=== PATIENT | male | born 1955 | race Caucasian/White ===

== ENCOUNTER 2018-11-18 13:52 | Inpatient (IN) ==
[2018-11-18] MEDS ORDERED: GI COCKTAIL ED USE PO ONE (14:15)
[2018-11-18] MEDS ORDERED: FAMOTIDINE 20MG/5ML IV PUSH IV STA (14:15)
[2018-11-18] MEDS ORDERED: SODIUM CHLORIDE 0.9% 1000ML 1,000 ML IV SCH (14:15)
[2018-11-18] MEDS ORDERED: PANTOprazole 40 MG in SYRINGE 0 ML IV ONE (14:15)
--- NOTE | 2018-11-18 14:22 | Emergency Department Note ---
Entered by Sue Bianchi acting as a scribe for Helder Valles DO History of Present Illness General Chief complaint: Throat Pain Time Seen by Provider: 11/18/18 14:09 Source: patient History of Present Illness Onset (ago): week(s) 1 Location: left (Lung) and right (Lung) Severity: similar to prior episodes Pain Consistency: + other (Worsening) Quality: + other (Shortness of breath) Relieved By: not by medication (Amoxicillin, Allopurinol, Musinex) Associated symptoms: + cough, + loss of appetite, + shortness of breath and + other (Trouble sleeping, sore throat, weight loss, difficulty swallowing) Treatments prior to arrival: other (Amoxicillin, Allopurinol, Musinex) The patient is a 63 year old male who presents to the Emergency Room with complaints of worsening shortness of breath starting 1 week ago. The patient reports that he had a sore throat 1 week ago. He states that over the past week that it has become harder to breathe and that he has difficulty swallowing. He notes that he has lost his appetite and has trouble sleeping. He adds that he has recently lost 20 pounds. The patient reports that he recently was getting treatment for a sinus infection and was taking Amoxicillin. He states that he was also taking a steroid, Allopurinol along with Musinex. The patient reports that he was in the ED 5 days ago for the same symptoms and that his bloodwork, EKG and imaging all came back normal. The patient reports that he was sent to the ED by Dr. Gunnar DUENAS ENT who called EMS for the patient. Home Medications Home Medications Medication Instructions Recorded Confirmed Type amoxicillin-pot clavulanate 1 tab PO BID 11/12/18 11/18/18 History [Augmentin] diphenhydramine HCl [Benadryl 25 mg PO Q4 PRN 11/18/18 11/18/18 History Allergy] prednisone 40 mg PO DAILY 11/18/18 11/18/18 History Allergies Allergy/AdvReac Type Severity Reaction Status Date / Time No Known Allergies Allergy Verified 11/18/18 15:04 Past Med/Surg History Medical History Tobacco use (Chronic) Chest congestion (Acute) Bronchitis (Acute) Surgical History History of appendectomy (Resolved) Family History Other Breast cancer Diabetes Stroke Social History Current Living Situation: Significant Other Other Information That Helps Us Care for You: No Feels Safe at Home: Yes Safety Concerns: Feels Safe At This Time Smoking Status: Current every day smoker Tobacco Type: cigarettes Cigarettes per Day: 0.5-1ppd x 50 years Do You Dip or Chew Tobacco: No Hx Alcohol Use: No Hx Substance Use: No Beliefs That Will Affect Care: None Preferred Language: Belarusian Communication Ability: Effective Direct Casting Operator Required: No Review of Systems See HPI for pertinent positives & negatives. and A total of 10 systems reviewed and were otherwise negative Physical Exam Vital Signs Vital Signs - 24 hr 11/20/18 23:28 11/21/18 06:52 11/21/18 09:00 Temperature 36.4 C L 36.5 C Temperature Source Oral Oral Pulse Rate [Finger] 54 L 60 Pulse Rhythm [Finger] Regular Regular Pulse Strength [Finger] Normal Normal Respiratory Rate 18 18 Respiratory Effort / Characteristics Non-Labored Non-Labored Non-Labored Spontaneous Respiratory Depth Normal Normal Normal Respiratory Pattern Regular Regular Regular Blood Pressure [Left Arm] 132/75 150/83 H Blood Pressure Mean [Left Arm] 94 105 Blood Pressure Position [Left Arm] Lying Lying Pulse Oximetry 97 99 Oxygen Delivery Method Room Air Room Air Room Air 11/21/18 15:00 Temperature 36.5 C Temperature Source Oral Pulse Rate [Finger] 64 Pulse Rhythm [Finger] Pulse Strength [Finger] Respiratory Rate 18 Respiratory Effort / Characteristics Respiratory Depth Respiratory Pattern Blood Pressure [Left Arm] 137/74 Blood Pressure Mean [Left Arm] 95 Blood Pressure Position [Left Arm] Pulse Oximetry 96 Oxygen Delivery Method GENERAL: The patient is awake and alert. He is somewhat anxious appearing and appears to be uncomfortable. EYES: The conjunctivae are clear. The pupils are round and reactive. EARS, NOSE, MOUTH AND THROAT: The nose is without any evidence of any deformity. Mucous membranes are moist tongue is midline NECK: The neck is nontender and supple. RESPIRATORY: Normal respiratory effort is noted there is no evidence of wheezing rhonchi or rales CARDIOVASCULAR: Regular rate and rhythm noted there no murmurs rubs or gallops normal S1 normal S2 GASTROINTESTINAL: The abdomen is soft. Bowel sounds are present in all quadrants. Abdomen is nontender MUSCULOSKELETAL/EXTREMITIES: There is no evidence of gross deformity full range of motion is noted in the hips and shoulders SKIN: There is no obvious evidence of any rash. There are no petechiae, pallor or cyanosis noted. NEUROLOGIC: Patient is awake alert and oriented x3 strength is symmetric patellar reflexes are 2+ bilaterally Course 1412: Past medical records reviewed. The patient was evaluated in room A11A, and a complete history and physical examination were performed. 1541: I reviewed the patient's case with Yoko Lizarraga - [facility]. She will evaluate the patient for further management. 1556: I reevaluated the patient at this time and told him that he will be evaluated by a hospitalist for admission. Administered Medications Fluticasone Propionate (Flonase) 2 sprays NA BID LACI Stop: 12/20/18 09:29 Last Admin: 11/21/18 08:59 Dose: 2 sprays Admin: 11/20/18 21:08 Dose: 2 sprays Admin: 11/20/18 09:47 Dose: 2 sprays Methylprednisolone 20 mg/ (Syringe) 0.32 mls @ 1.5 mls/min IV BID LACI Stop: 12/20/18 09:59 Last Admin: 11/21/18 09:00 Dose: 1.5 mls/min Admin: 11/20/18 21:07 Dose: 1.5 mls/min Admin: 11/20/18 10:52 Dose: 1.5 mls/min Pantoprazole Sodium (Protonix) 40 mg PO QAM LACI Stop: 12/20/18 08:59 Last Admin: 11/21/18 08:59 Dose: 40 mg Admin: 11/20/18 07:51 Dose: 40 mg Discontinued Medications Al Hydrox/Mg Hydrox/Simethicone () 1 dose PO ONE ONE Stop: 11/18/18 14:16 Last Admin: 11/18/18 14:54 Dose: 1 dose Famotidine (Pepcid 20mg Iv Push) 20 mg IV ONE STA Stop: 11/18/18 14:16 Last Admin: 11/18/18 14:53 Dose: 20 mg Pantoprazole Sodium 40 mg/ (Syringe) 10 mls @ 5 mls/min IV NOW ONE Stop: 11/18/18 14:16 Last Admin: 11/18/18 14:53 Dose: 5 mls/min Sodium Chloride (Nss 1000ml) 1,000 mls @ 999 mls/hr IV .Q1H1M [facility] Stop: 11/18/18 15:15 Last Infusion: 11/18/18 15:54 Dose: 0 mls/hr Admin: 11/18/18 14:53 Dose: 999 mls/hr Sodium Chloride (Nss 1000ml) 1,000 mls @ 125 mls/hr IV .Q8H [facility] Stop: 11/19/18 10:02 Last Infusion: 11/19/18 11:29 Dose: 0 mls/hr Admin: 11/19/18 03:29 Dose: 125 mls/hr Infusion: 11/19/18 03:07 Dose: 125 mls/hr Admin: 11/18/18 19:07 Dose: 125 mls/hr Pantoprazole Sodium 40 mg/ (Syringe) 10 mls @ 5 mls/min IV DAILY@1100 [facility] Stop: 12/19/18 10:59 Last Admin: 11/19/18 11:41 Dose: 5 mls/min Ampicillin Sodium/Sulbactam Sodium 1,500 mg/ Sodium Chloride 104 mls @ 200 mls/ hr IV Q6H [facility] Stop: 11/20/18 13:01 Last Infusion: 11/20/18 13:41 Dose: 0 mls/hr Admin: 11/20/18 13:06 Dose: 200 mls/hr Infusion: 11/20/18 08:30 Dose: 0 mls/hr Admin: 11/20/18 07:50 Dose: 200 mls/hr Infusion: 11/20/18 01:35 Dose: 0 mls/hr Admin: 11/20/18 00:57 Dose: 200 mls/hr Infusion: 11/19/18 19:43 Dose: 0 mls/hr Admin: 11/19/18 19:03 Dose: 200 mls/hr Infusion: 11/19/18 15:10 Dose: 0 mls/hr Admin: 11/19/18 14:38 Dose: 200 mls/hr Infusion: 11/19/18 06:53 Dose: 0 mls/hr Admin: 11/19/18 06:21 Dose: 200 mls/hr Infusion: 11/19/18 01:12 Dose: 0 mls/hr Admin: 11/19/18 00:40 Dose: 200 mls/hr Infusion: 11/18/18 20:00 Dose: 0 mls/hr Admin: 11/18/18 19:20 Dose: 200 mls/hr Lidocaine HCl (Xylocaine 2%) Confirm Administered Dose 4 ml INFIL .STK-MED ONE Stop: 11/19/18 13:19 Last Admin: 11/19/18 14:41 Dose: Not Given Lorazepam (Ativan) 1 mg SL NOW STA Stop: 11/19/18 21:00 Last Admin: 11/19/18 21:06 Dose: 1 mg Menthol (Nice) Confirm Administered Dose 24 barby BUCCAL .STK-MED ONE Stop: 11/19/18 19:41 Last Admin: 11/19/18 19:41 Dose: 24 barby Propofol (Diprivan) Confirm Administered Dose 400 mg IV .STK-MED ONE Stop: 11/19/18 13:19 Last Admin: 11/19/18 14:41 Dose: Not Given Medical Decision Making Differential Diagnosis Differential diagnosis: Etiologies such as infections, reactive airway disease, COPD, pneumonia, pleural effusion, pulmonary edema, ARDS, pneumothorax, CHF, cardiac ischemia, cardiac tamponade, dysrhythmia, anemia, pulmonary embolism, musculoskeletal, gastrointestinal process, as well as others were entertained. Medical Records Attestation: I reviewed the patient's medical records. Home Medications Current Medication List: was personally reviewed by me Laboratory Data Attestation: I reviewed the patient's lab results. Result diagrams: 11/20/18 05:54 11/20/18 05:54 Lab Results 11/18/18 11/18/18 11/18/18 Range/Units 14:40 14:40 14:40 WBC 7.11 (4.8-10.8) K/uL RBC 5.06 (4.7-6.1) M/uL Hgb 15.6 (14.0-18.0) g/dL Hct 43.5 (42-52) % MCV 86.0 (80-100) fL MCH 30.8 (25-34) pg MCHC 35.9 (32-36) g/dL RDW Std Deviation 41.1 (36.4-46.3) fL RDW Coeff of John 13.1 (11.5-14.5) % Plt Count 206 (130-400) K/uL MPV 10.9 H (7.4-10.4) fL Immature Gran % (Auto) 0.3 % Neut % (Auto) 73.7 % Lymph % (Auto) 20.7 % [place] % (Auto) 5.1 % Eos % (Auto) 0.1 % Baso % (Auto) 0.1 % Immature Gran # (Auto) 0.02 (0.00-0.02) K/uL Neut # (Auto) 5.24 (1.4-6.5) K/uL Lymph # (Auto) 1.47 (1.2-3.4) K/uL [place] # (Auto) 0.36 (0.11-0.59) K/uL Eos # (Auto) 0.01 (0-0.5) K/uL Baso # (Auto) 0.01 (0-0.2) K/uL PT 11.5 (9.0-12.0) Seconds INR 1.1 (0.9-1.1) APTT 28.0 (21.0-31.0) Seconds PTT Ratio 1.1 Sodium 139 (136-145) mmol/L Potassium 3.9 (3.5-5.1) mmol/L Chloride 106 (98-107) mmol/L Carbon Dioxide 22 (21-32) mmol/L Anion Gap 11.0 (3-11) BUN 16 (7-18) mg/dl Creatinine 1.43 H (0.6-1.4) mg/dl Est Cr Clr Drug Dosing 60.8 ml/min Est GFR ( Amer) 59.1 Est GFR (Non-Af Amer) 51.0 BUN/Creatinine Ratio 10.9 (10-20) Glucose 116 H (70-99) mg/dl Calcium 9.6 (8.5-10.1) mg/dl Phosphorus (2.5-4.9) mg/dl Magnesium (1.8-2.4) mg/dl Total Bilirubin 0.9 (0.2-1) mg/dl AST 27 (15-37) U/L ALT 43 (12-78) U/L Alkaline Phosphatase 61 (45-117) U/L Total Protein 7.9 (6.4-8.2) gm/dl Albumin 4.2 (3.4-5.0) gm/dl Globulin 3.7 (2.5-4.0) gm/dl Albumin/Globulin Ratio 1.1 (0.9-2) Lipase 107 (73-393) U/L Urine Color Urine Appearance (Clear) Urine pH (4.5-7.5) Ur Specific [place] (1.000-1.030) Urine Protein (Negative) Urine Glucose (UA) (Negative) Urine Ketones (Negative) Urine Blood (Negative) Urine Nitrite (Negative) Urine Bilirubin (Negative) Urine Urobilinogen (Negative) Ur Leukocyte Esterase (Negative) Hepatitis C Ab Screen (Neg) 11/18/18 11/18/18 11/19/18 Range/Units 14:42 15:00 05:46 WBC 6.53 (4.8-10.8) K/uL RBC 4.63 L (4.7-6.1) M/uL Hgb 13.9 L (14.0-18.0) g/dL Hct 40.4 L (42-52) % MCV 87.3 (80-100) fL MCH 30.0 (25-34) pg MCHC 34.4 (32-36) g/dL RDW Std Deviation 42.4 (36.4-46.3) fL RDW Coeff of John 13.3 (11.5-14.5) % Plt Count 157 (130-400) K/uL MPV 11.2 H (7.4-10.4) fL Immature Gran % (Auto) % Neut % (Auto) % Lymph % (Auto) % [place] % (Auto) % Eos % (Auto) % Baso % (Auto) % Immature Gran # (Auto) (0.00-0.02) K/uL Neut # (Auto) (1.4-6.5) K/uL Lymph # (Auto) (1.2-3.4) K/uL [place] # (Auto) (0.11-0.59) K/uL Eos # (Auto) (0-0.5) K/uL Baso # (Auto) (0-0.2) K/uL PT (9.0-12.0) Seconds INR (0.9-1.1) APTT (21.0-31.0) Seconds PTT Ratio Sodium (136-145) mmol/L Potassium (3.5-5.1) mmol/L Chloride (98-107) mmol/L Carbon Dioxide (21-32) mmol/L Anion Gap (3-11) BUN (7-18) mg/dl Creatinine (0.6-1.4) mg/dl Est Cr Clr Drug Dosing ml/min Est GFR ( Amer) Est GFR (Non-Af Amer) BUN/Creatinine Ratio (10-20) Glucose (70-99) mg/dl Calcium (8.5-10.1) mg/dl Phosphorus (2.5-4.9) mg/dl Magnesium (1.8-2.4) mg/dl Total Bilirubin (0.2-1) mg/dl AST (15-37) U/L ALT (12-78) U/L Alkaline Phosphatase (45-117) U/L Total Protein (6.4-8.2) gm/dl Albumin (3.4-5.0) gm/dl Globulin (2.5-4.0) gm/dl Albumin/Globulin Ratio (0.9-2) Lipase (73-393) U/L Urine Color Yellow Urine Appearance Clear (Clear) Urine pH 8.0 H (4.5-7.5) Ur Specific [place] 1.007 (1.000-1.030) Urine Protein Negative (Negative) Urine Glucose (UA) Negative (Negative) Urine Ketones Trace H (Negative) Urine Blood Negative (Negative) Urine Nitrite Negative (Negative) Urine Bilirubin Negative (Negative) Urine Urobilinogen Negative (Negative) Ur Leukocyte Esterase Negative (Negative) Hepatitis C Ab Screen Pos H (Neg) 11/19/18 11/20/18 11/20/18 Range/Units 05:46 05:54 05:54 WBC 6.30 (4.8-10.8) K/uL RBC 4.70 (4.7-6.1) M/uL Hgb 14.1 (14.0-18.0) g/dL Hct 41.0 L (42-52) % MCV 87.2 (80-100) fL MCH 30.0 (25-34) pg MCHC 34.4 (32-36) g/dL RDW Std Deviation 42.0 (36.4-46.3) fL RDW Coeff of John 13.1 (11.5-14.5) % Plt Count 143 (130-400) K/uL MPV 10.9 H (7.4-10.4) fL Immature Gran % (Auto) 0.2 % Neut % (Auto) 49.2 % Lymph % (Auto) 40.2 % [place] % (Auto) 7.1 % Eos % (Auto) 3.0 % Baso % (Auto) 0.3 % Immature Gran # (Auto) 0.01 (0.00-0.02) K/uL Neut # (Auto) 3.10 (1.4-6.5) K/uL Lymph # (Auto) 2.53 (1.2-3.4) K/uL [place] # (Auto) 0.45 (0.11-0.59) K/uL Eos # (Auto) 0.19 (0-0.5) K/uL Baso # (Auto) 0.02 (0-0.2) K/uL PT (9.0-12.0) Seconds INR (0.9-1.1) APTT (21.0-31.0) Seconds PTT Ratio Sodium 143 138 (136-145) mmol/L Potassium 3.8 3.8 (3.5-5.1) mmol/L Chloride 112 H 108 H (98-107) mmol/L Carbon Dioxide 26 24 (21-32) mmol/L Anion Gap 5.0 6.0 (3-11) BUN 16 15 (7-18) mg/dl Creatinine 1.32 1.12 (0.6-1.4) mg/dl Est Cr Clr Drug Dosing 65.2 76.8 ml/min Est GFR ( Amer) 65.2 79.5 Est GFR (Non-Af Amer) 56.2 68.6 BUN/Creatinine Ratio 12.0 13.3 (10-20) Glucose 85 84 (70-99) mg/dl Calcium 8.3 L 8.2 L (8.5-10.1) mg/dl Phosphorus 2.7 (2.5-4.9) mg/dl Magnesium 2.1 (1.8-2.4) mg/dl Total Bilirubin (0.2-1) mg/dl AST (15-37) U/L ALT (12-78) U/L Alkaline Phosphatase (45-117) U/L Total Protein (6.4-8.2) gm/dl Albumin (3.4-5.0) gm/dl Globulin (2.5-4.0) gm/dl Albumin/Globulin Ratio (0.9-2) Lipase (73-393) U/L Urine Color Urine Appearance (Clear) Urine pH (4.5-7.5) Ur Specific [place] (1.000-1.030) Urine Protein (Negative) Urine Glucose (UA) (Negative) Urine Ketones (Negative) Urine Blood (Negative) Urine Nitrite (Negative) Urine Bilirubin (Negative) Urine Urobilinogen (Negative) Ur Leukocyte Esterase (Negative) Hepatitis C Ab Screen (Neg) Imaging Data Radiologist's Impression: Radiology results as stated below per my review and the radiologist's interpretation: SINGLE VIEW CHEST CLINICAL HISTORY: Atypical chest pain. Sore throat and chest congestion. FINDINGS: 2 AP, portable, upright chest radiographs are compared to chest x-ray and chest CT dated 11/12/2018. The examination is degraded by portable technique and patient rotation. The heart is mildly enlarged. The pulmonary vasculature is noncongested. Mild emphysematous change and chronic interstitial thickening are similar to previous. No airspace consolidation or pleural effusion is identified. No pneumothorax is seen. The bony thorax is grossly intact. IMPRESSION: Cardiomegaly and mild emphysematous change with no acute cardiopulmonary abnormality. Electronically signed by: Syed Villarreal M.D. 11/18/2018 2:50 PM ECG Data Attestation: I personally reviewed and interpreted this ECG as follows: Indication: SOB/dyspnea Rate (beats per minute): 69 Rhythm: normal sinus Findings: no ST depression, no ST elevation and no ectopy Comparison ECG Date: from (11/12/18) Change: no significant change Blood Pressure Blood Pressure Findings: Elevated blood pressure Blood Pressure Disposition: further management by hospitalist MDM Narrative The patient is a 63-year-old male who presented to the emergency department for an evaluation of difficulty swallowing and chest discomfort. The patient was seen in our facility recently for similar complaints. At that time it was unclear of the source of the patient's difficulty swallowing. He was started on a steroid. This may have made symptoms worse. I would wonder if this is a GI source for the patient's dysphagia. The patient was seen by ENT today and sent to the emergency department because of the severity symptoms. Reportedly the patient did not have any upper airway involvement according to ENT. They felt he required further inpatient evaluation for his dysphagia and possibly an upper endoscopy. I discussed the patient's laboratory and radiographic studies with him. I also discussed this case with the on-call [facility] hospitalist group. They have agreed to evaluate the patient in the emergency department for further management and disposition. Impression & Plan Dysphagia, Chest pain Discharge Plan Visit Data *Final* Discharge Date/Time: 11/18/18 17:13 Chief Complaint: Throat Pain Other Complaint: GI Assessment ED Provider: Helder Valles Discharge Problem: Dysphagia, Chest pain Patient Disposition: Admitted As Inpatient Discharge Instructions Interventions: ED Discharge Assessment Last Done: 11/18/18 17:13 The scribe's documentation has been prepared under my direction and personally reviewed by me in its entirety. I confirm that the note above accurately reflects all work, treatment, procedures, and medical decision making performed by me.
--- NOTE | 2018-11-18 14:52 | XRay Report ---
SINGLE VIEW CHEST CLINICAL HISTORY: Atypical chest pain. Sore throat and chest congestion. FINDINGS: 2 AP, portable, upright chest radiographs are compared to chest x-ray and chest CT dated . The examination is degraded by portable technique and patient rotation. The heart is mildly enlarged. The pulmonary vasculature is noncongested. Mild emphysematous change and chronic interstit ial thickening are similar to previous. No airspace consolidation or pleural effusion is identified. No pneumothorax is seen. The bony thorax is grossly intact. IMPRESSION: Cardiomegaly and mild emphysematous change with no acute cardiopulmonary abnormality. Electronically signed by: Syed Villarreal M.D. 11/18/2018 2:50 PM
[2018-11-18 15:03] LABS: Basophils # (auto) 0.01 K/uL (0-0.2); Basophils % (auto) 0.1 %; Eosinophils # (auto) 0.01 K/uL (0-0.5); Eosinophils % (auto) 0.1 %; Hematocrit (blood only) 43.5 % (42-52); Hemoglobin 15.6 g/dL (14.0-18.0); Immature Granulocytes # (auto) 0.02 K/uL (0.00-0.02); Immature Granulocytes % (auto) 0.3 %; Lymphocytes # (auto) 1.47 K/uL (1.2-3.4); Lymphocytes % (auto) 20.7 %; Mean Corpuscular Hgb Conc 35.9 g/dL (32-36); Mean Platelet Volume 10.9 fL (7.4-10.4); Monocytes # (auto) 0.36 K/uL (0.11-0.59); Monocytes % (auto) 5.1 %; Neutrophils # (auto) 5.24 K/uL (1.4-6.5); Neutrophils % (auto) 73.7 %; Platelet Count 206 K/uL (130-400); RDW Coefficient of Variation 13.1 % (11.5-14.5); RDW Standard Deviation 41.1 fL (36.4-46.3); Red Blood Count 5.06 M/uL (4.7-6.1); White Blood Count 7.11 K/uL (4.8-10.8)
[2018-11-18 15:19] LABS: Albumin Level 4.2 gm/dl (3.4-5.0); BUN Creatinine Ratio 10.9 (10-20); Calcium 9.6 mg/dl (8.5-10.1); Creatinine Clr Calc Pharmacy 60.8 ml/min; Est GFR (African American) 59.1; Potassium 3.9 mmol/L (3.5-5.1)
[2018-11-18 15:22] LABS: Appearance Urine Clear (Clear); Bilirubin Urine Negative (Negative); Color Urine Yellow; Glucose Urine UA Negative (Negative); Ketones Urine Trace (Negative); Leukocyte Esterase Urine Negative (Negative); Nitrite Urine Negative (Negative); Protein Urine Negative (Negative); Specific Gravity Urine 1.007 (1.000-1.030); Urobilinogen Urine Negative (Negative)
[2018-11-18 15:22] LABS: Albumin Globulin Ratio 1.1 (0.9-2); Bilirubin,Total 0.9 mg/dl (0.2-1); Globulin 3.7 gm/dl (2.5-4.0); Total Protein 7.9 gm/dl (6.4-8.2)
[2018-11-18 16:20] LABS: INR 1.1 (0.9-1.1); Partial Thromboplastin Ratio 1.1; Prothrombin Time 11.5 Seconds (9.0-12.0)
--- NOTE | 2018-11-18 17:02 | History & Physical Report ---
Date of Service November 18, 2018 Assessment & Plan (1) Dysphagia: Onset of URI symptoms 4 weeks ago which has progressed to dysphagia with solids and liquids. Denies painful swallowing. Decreased oral intake secondary to symptoms. Reports 20 pound weight loss over past 3 days. In ER was given pepcid and protonix IV, 1L NSS. He was unable to completely swallow GI cocktail and coughed it out. No CP or SOB or dizziness currently -Protonix IV -NPO for now -aspiration precautions -GI consult appreciate recommendations (2) Tobacco use: -smoking cessation discussed. Reports has cut down past couple of weeks (3) Post-nasal drip: Recent URI symptoms and was started on Augmentin. Has 2 days remaining to finish 10 day course. Today was last day of prednisone course -unasyn since NPO to finish antibiotic course DVT Prophylaxis -SCDs Full code Follows with Dr Bony Catherine for routine care Pt was seen with Dr Acosta. See addendum History of Present Illness Chief Complaint: Trouble swallowing Primary Care Provider: Nieves Catherine MD Pt is 63 y/o M without known medical problems presented to ER from ENT office with c/o dysphagia. Pt states 4 weeks ago started with sore throat which then progressed to rhinorhea, sneezing and nasal congestion. Reports developed thick mucous that he was unable to blow or cough it out or swallow. He saw PCP and was started on Augmentin x 10 days on 11/10/18. Feels progressive trouble swallowing with both liquids and solids. [place] like things were getting a little better this morning and drank a couple of cups of coffee without difficulty and then tried eating small bite of scrambled eggs and felt like got stuck in his throat. When this happens pt states he can't get it to go down and can't cough or vomit it out. He usually walks around house for couple of minutes until symptoms resolve. Admits when this happens he feels like can't swallow and can' t breath and it makes him feel anxious. Denies pain with swallowing. Denies CP. States never really had any cough, he has just been trying to make himself cough to try to relieve symptoms. Reports feels like can't swallow when lying supine also. He has not been sleeping well. Reports hasn't ate or drank much over past 3 weeks and has lost approx 20 pounds. Pt states this morning felt dizzy. Was seen in ER on 11/12/18 and had normal WBC, negative troponin, negative CXR, CT Chest was negative for PE. Was started on prednisone x 5 days and inhaler. Seen in ER on 11/15/18: had CT sinus which were clear. This morning was at ENT office- Dr Dangelo. Had reported normal ENT exam and laryngoscopy and was referred to ER for further evaluation. Denies hx trouble swallowing in past. Reports has heartburn a few times a month when eats tomato sauce late at night. Was taking aspirin 81mg daily, denies other NSAID use. Drinks 6 cups coffee daily. Smokes 0.5-1ppd. Denies ETOH use. Denies fever/ chills, diaphoresis, N/V/D/C, GONZALEZ, syncope, vision changes, neck pain, palpitations, otalgia, abdominal pain, paresthesias, extremity edema, rashes, urinary symptoms. Allergies Allergy/AdvReac Type Severity Reaction Status Date / Time No Known Allergies Allergy Verified 11/18/18 15:04 Home Medications Home Medications Medication Instructions Recorded Confirmed Type amoxicillin-pot clavulanate 1 tab PO BID 11/12/18 11/18/18 History [Augmentin] diphenhydramine HCl [Benadryl 25 mg PO Q4 PRN 11/18/18 11/18/18 History Allergy] prednisone 40 mg PO DAILY 11/18/18 11/18/18 History Past Med/Surg History Medical History Tobacco use (Chronic) Chest congestion (Acute) Bronchitis (Acute) Surgical History History of appendectomy (Resolved) Social History Current Living Situation: Significant Other Other Information That Helps Us Care for You: No Feels Safe at Home: Yes Safety Concerns: Feels Safe At This Time Smoking Status: Current every day smoker Cigarettes per Day: 0.5-1ppd x 50 years Hx Alcohol Use: No Hx Substance Use: No Beliefs That Will Affect Care: None Preferred Language: Albanian Communication Ability: Effective Home Restoration Service Cleaner Required: No Review of Systems All systems reviewed & are unremarkable except as noted in HPI & below Physical Exam 2 Vital Signs (Past 24 Hours): Last Vital Signs Temp 36.7 C 11/18/18 14:05 Pulse 80 11/18/18 15:55 Resp 18 11/18/18 15:55 BP 147/77 H 11/18/18 15:55 Pulse Ox 97 11/18/18 15:55 Physical Exam: General: no distress, WDWN Head: normocephalic, atraumatic Eyes: PERRL, EOM's intact, conjunctiva non-injected, anicteric ENT: normal inspection external ears, nose, mucous membranes moist; swallowing saliva Neck: supple, trachea midline, non-tender Lungs: clear, no respiratory distress, no wheezing/rhonchi/rales CV: RRR, no murmur, no pretibial edema Abd: normal BS, soft, non-tender Ext: no cyanosis, no calf tenderness Neuro: A&O x 3, no focal deficits noted, normal affect Skin: warm, dry Results & Data Laboratory Results Short CBC 11/18/18 Range/Units 14:40 WBC 7.11 (4.8-10.8) K/uL Hgb 15.6 (14.0-18.0) g/dL Hct 43.5 (42-52) % Plt Count 206 (130-400) K/uL BMP 11/18/18 14:40 Sodium 139 Potassium 3.9 Chloride 106 Carbon Dioxide 22 BUN 16 Creatinine 1.43 H Glucose 116 H Calcium 9.6 Liver Function 11/18/18 Range/Units 14:40 Total Bilirubin 0.9 (0.2-1) mg/dl AST 27 (15-37) U/L ALT 43 (12-78) U/L Alkaline Phosphatase 61 (45-117) U/L Albumin 4.2 (3.4-5.0) gm/dl Urine 11/18/18 Range/Units 15:00 Urine Color Yellow Urine Appearance Clear (Clear) Urine pH 8.0 H (4.5-7.5) Ur Specific [place] 1.007 (1.000-1.030) Urine Protein Negative (Negative) Urine Glucose (UA) Negative (Negative) Diagnostic Findings CXR: IMPRESSION: Cardiomegaly and mild emphysematous change with no acute cardiopulmonary abnormality. ECG Rate (beats per minute): 69 Rhythm: normal sinus Supervising Physician Co-Signing Physician Notes Patient is a 63-year-old male who presents with history of worsening dysphagia. Reports associated rhinorrhea, nasal congestion for which he has been taking Augmentin. He reports having difficulty with swallowing both liquids and solids. He was evaluated by ENT today and was sent to the ED for further workup. Reports weight loss of about 20 pounds in the last 3 weeks. Please review HPI for complete details of presentation. On exam patient patient is moderately built and nourished, no apparent distress, lungs are clear to auscultation, RRR, No murmur, abd soft, non tender, no focal deficits, no pedal edema. Patient is admitted for dysphagia workup. Will be kept n.p.o., aspiration precautions GI consulted for possible EGD. Started on PPI. I personally reviewed the record. Patient is interviewed and examined at bedside. Patient's care is coordinated with Yris Lizarraga PA-C. Please refer to the documentation above for details of patient's presentation and for discussion of other issues. _ (1) Dysphagia Dysphagia type: unspecified Qualified Code(s): R13.10 - Dysphagia, unspecified
[2018-11-18] MEDS ORDERED: ACETAMINOPHEN 325 MG TAB PO PRN (18:03)
[2018-11-18] MEDS: SODIUM CHLORIDE 0.9% 1000ML 1,000 ML IV SCH (19:07)
[2018-11-18] MEDS: AMPICILLIN/SULBACTAM SOD 1,500 MG in 0.9 % SODIUM CHLORIDE 100 ML IV SCH (19:20)
[2018-11-19] MEDS: AMPICILLIN/SULBACTAM SOD 1,500 MG in 0.9 % SODIUM CHLORIDE 100 ML IV SCH ×4 (00:40→19:03)
[2018-11-19] MEDS: SODIUM CHLORIDE 0.9% 1000ML 1,000 ML IV SCH (03:29)
[2018-11-19 06:00] LABS: Hematocrit (blood only) 40.4 % (42-52); Hemoglobin 13.9 g/dL (14.0-18.0); Mean Corpuscular Hgb Conc 34.4 g/dL (32-36); Mean Corpuscular Volume 87.3 fL (80-100); Mean Platelet Volume 11.2 fL (7.4-10.4); Platelet Count 157 K/uL (130-400); RDW Coefficient of Variation 13.3 % (11.5-14.5); RDW Standard Deviation 42.4 fL (36.4-46.3); Red Blood Count 4.63 M/uL (4.7-6.1); White Blood Count 6.53 K/uL (4.8-10.8)
[2018-11-19 06:30] LABS: Calcium 8.3 mg/dl (8.5-10.1); Creatinine Clr Calc Pharmacy 65.2 ml/min; Est GFR (African American) 65.2; Est GFR (Non-African American) 56.2; Potassium 3.8 mmol/L (3.5-5.1)
--- NOTE | 2018-11-19 08:54 | Gastrointestinal Consultation ---
Date of Consultation November 19, 2018 Assessment & Plan (1) Dysphagia: 63 year old male with history of recent URI on augmentin/prednisone admitted with dysphagia to both solids/liquids, globus sensation and weight loss. DDX discussed: pill esophagitis, esophageal samm, stricture, ring, EOE , GERD, lesions etc. - NPO - EGD - PPI 20 mg daily - GERD dietary/lifestyle changes - Please see report of endoscopy when completed for additional recommendations. GI to sign off. Thank you for allowing us to participate in the care of this patient. Please call with any acute changes, questions or concerns. Please see addendum below with additional recommendation from my supervising physician. Present on Admission?: Yes Supervising Physician Co-Signing Physician Notes I saw and evaluated the patient. Regard to a question of dysphagia. The patient is somewhat difficult to pinpoint his symptoms but notes that he does get short of breath anytime he swallows. This is been ongoing for several days. He did recently see an ear nose and throat doctor who recommended that he get an ambulance transfer from his clinic to the hospital. Physical examination No obvious distress, no scleral icterus Cardiac: Regular rhythm Pulmonary: No wheezes or crackles Impression: Patient with difficult to describe symptoms which clinicians are worried about underlying dysphagia. We are planning to do upper endoscopy today with possible esophageal dilation. We have discussed the risks and benefits to include bleeding, infection, perforation and need for follow-up studies. History of Present Illness Reason for Consultation: dysphagia Requesting Physician: Stephanie Attending Physician: Asya Brown MD History of Present Illness 63 year old male with no past medical history admitted from ENT for dysphagia - pt was seen and evaluated, chart reviewed. Denies any prior history of GERD or dysphagia and that his symptoms started during course of upper respiratory illness. About one month ago started iwth sore throat, rhinorrhea, congestion and PND. Notes he had sensation of globus with this illness which he felt was secondary to PND, mucous. However, this progressed and persisted despite resolution of his URI symptoms. Endorses persisted globus sensation. With PO will have sensation of food sticking (back of throat) Will resolve with emesis. In the ED had PPI, GI cocktail with mild improvement. Is NPO. Tolerating secretions. Acute weight loss, 20 lbs. No fever, chills, CP, SOB. Was in ENT yesterday w/ report of normal examination. Was seen in ED on 11/12/18 and had normal WBC, negative troponin, negative CXR, CT Chest was negative for PE. Again in ED on 11/15/18: had CT sinus which were clear. NSAIDs: ASA daily ETOH: none Tobacco: 1 PPD Steroids: recent one week course ABX: recent course of Augmentin EGD: none Colonoscopy: diverticulosis Allergies Allergy/AdvReac Type Severity Reaction Status Date / Time No Known Allergies Allergy Verified 11/18/18 15:04 Home Medications Home Medications Medication Instructions Recorded Confirmed Type amoxicillin-pot clavulanate 1 tab PO BID 11/12/18 11/18/18 History [Augmentin] diphenhydramine HCl [Benadryl 25 mg PO Q4 PRN 11/18/18 11/18/18 History Allergy] prednisone 40 mg PO DAILY 11/18/18 11/18/18 History Patient History Medical History Tobacco use (Chronic) Chest congestion (Acute) Bronchitis (Acute) Surgical History History of appendectomy (Resolved) Family History Other Breast cancer Diabetes Stroke Social History Current Living Situation: Significant Other Other Information That Helps Us Care for You: No Feels Safe at Home: Yes Safety Concerns: Feels Safe At This Time Smoking Status: Current every day smoker Tobacco Type: cigarettes Cigarettes per Day: 0.5-1ppd x 50 years Do You Dip or Chew Tobacco: No Hx Alcohol Use: No Hx Substance Use: No Beliefs That Will Affect Care: None Preferred Language: Martiniquais Communication Ability: Effective Ballistics Tester Required: No Review of Systems Constitutional: + weakness, + anorexia and + weight loss; no fever, no chills, no body aches and no fatigue Respiratory: no cough, no dyspnea and no pain on inspiration Cardiovascular: no chest pain, no radiating jaw, neck or arm pain and no dyspnea on exertion Gastrointestinal: + pain with swallowing and + dysphagia; no abdominal pain, no belching, no bloating, no early satiety, no heartburn, no nausea, no vomiting, no coffee ground emesis, no hematemesis, no cramping, no excessive flatulence, no change in bowel habits, no change in stools, no constipation, no diarrhea/ loose stools, no fecal incontinence, no constant urge to pass stools, no blood in stools, no melena and no problem reported Physical Exam 2 Vital Signs (Past 24 Hours): Last Vital Signs Temp 36.7 C 11/19/18 08:01 Pulse 57 L 11/19/18 08:01 Resp 20 11/19/18 08:01 BP 146/78 H 11/19/18 08:01 Pulse Ox 97 11/19/18 08:01 Constitutional: well nourished, cooperative and comfortable; no acute distress Respiratory: normal respiratory effort, lungs clear to auscultation Cardiovascular: RRR, no murmur, no edema Gastrointestinal (Abdomen): normal bowel sounds, soft, nontender, no hepatosplenomegaly Skin: no rashes, warm and dry Results & Data Laboratory Results 11/19/18 11/19/18 11/18/18 Range/Units 05:46 05:46 15:00 WBC 6.53 (4.8-10.8) K/uL RBC 4.63 L (4.7-6.1) M/uL Hgb 13.9 L (14.0-18.0) g/dL Hct 40.4 L (42-52) % MCV 87.3 (80-100) fL MCH 30.0 (25-34) pg MCHC 34.4 (32-36) g/dL RDW Std Deviation 42.4 (36.4-46.3) fL RDW Coeff of John 13.3 (11.5-14.5) % Plt Count 157 (130-400) K/uL MPV 11.2 H (7.4-10.4) fL Immature Gran % (Auto) % Neut % (Auto) % Lymph % (Auto) % [place] % (Auto) % Eos % (Auto) % Baso % (Auto) % Immature Gran # (Auto) (0.00-0.02) K/uL Neut # (Auto) (1.4-6.5) K/uL Lymph # (Auto) (1.2-3.4) K/uL [place] # (Auto) (0.11-0.59) K/uL Eos # (Auto) (0-0.5) K/uL Baso # (Auto) (0-0.2) K/uL PT (9.0-12.0) Seconds INR (0.9-1.1) APTT (21.0-31.0) Seconds PTT Ratio Sodium 143 (136-145) mmol/L Potassium 3.8 (3.5-5.1) mmol/L Chloride 112 H (98-107) mmol/L Carbon Dioxide 26 (21-32) mmol/L Anion Gap 5.0 (3-11) BUN 16 (7-18) mg/dl Creatinine 1.32 (0.6-1.4) mg/dl Est Cr Clr Drug Dosing 65.2 ml/min Est GFR ( Amer) 65.2 Est GFR (Non-Af Amer) 56.2 BUN/Creatinine Ratio 12.0 (10-20) Glucose 85 (70-99) mg/dl Calcium 8.3 L (8.5-10.1) mg/dl Total Bilirubin (0.2-1) mg/dl AST (15-37) U/L ALT (12-78) U/L Alkaline Phosphatase (45-117) U/L Total Protein (6.4-8.2) gm/dl Albumin (3.4-5.0) gm/dl Globulin (2.5-4.0) gm/dl Albumin/Globulin Ratio (0.9-2) Lipase (73-393) U/L Urine Color Yellow Urine Appearance Clear (Clear) Urine pH 8.0 H (4.5-7.5) Ur Specific [place] 1.007 (1.000-1.030) Urine Protein Negative (Negative) Urine Glucose (UA) Negative (Negative) Urine Ketones Trace H (Negative) Urine Blood Negative (Negative) Urine Nitrite Negative (Negative) Urine Bilirubin Negative (Negative) Urine Urobilinogen Negative (Negative) Ur Leukocyte Esterase Negative (Negative) Hepatitis C Ab Screen (Neg) 11/18/18 11/18/18 11/18/18 Range/Units 14:42 14:40 14:40 WBC (4.8-10.8) K/uL RBC (4.7-6.1) M/uL Hgb (14.0-18.0) g/dL Hct (42-52) % MCV (80-100) fL MCH (25-34) pg MCHC (32-36) g/dL RDW Std Deviation (36.4-46.3) fL RDW Coeff of John (11.5-14.5) % Plt Count (130-400) K/uL MPV (7.4-10.4) fL Immature Gran % (Auto) % Neut % (Auto) % Lymph % (Auto) % [place] % (Auto) % Eos % (Auto) % Baso % (Auto) % Immature Gran # (Auto) (0.00-0.02) K/uL Neut # (Auto) (1.4-6.5) K/uL Lymph # (Auto) (1.2-3.4) K/uL [place] # (Auto) (0.11-0.59) K/uL Eos # (Auto) (0-0.5) K/uL Baso # (Auto) (0-0.2) K/uL PT 11.5 (9.0-12.0) Seconds INR 1.1 (0.9-1.1) APTT 28.0 (21.0-31.0) Seconds PTT Ratio 1.1 Sodium 139 (136-145) mmol/L Potassium 3.9 (3.5-5.1) mmol/L Chloride 106 (98-107) mmol/L Carbon Dioxide 22 (21-32) mmol/L Anion Gap 11.0 (3-11) BUN 16 (7-18) mg/dl Creatinine 1.43 H (0.6-1.4) mg/dl Est Cr Clr Drug Dosing 60.8 ml/min Est GFR ( Amer) 59.1 Est GFR (Non-Af Amer) 51.0 BUN/Creatinine Ratio 10.9 (10-20) Glucose 116 H (70-99) mg/dl Calcium 9.6 (8.5-10.1) mg/dl Total Bilirubin 0.9 (0.2-1) mg/dl AST 27 (15-37) U/L ALT 43 (12-78) U/L Alkaline Phosphatase 61 (45-117) U/L Total Protein 7.9 (6.4-8.2) gm/dl Albumin 4.2 (3.4-5.0) gm/dl Globulin 3.7 (2.5-4.0) gm/dl Albumin/Globulin Ratio 1.1 (0.9-2) Lipase 107 (73-393) U/L Urine Color Urine Appearance (Clear) Urine pH (4.5-7.5) Ur Specific [place] (1.000-1.030) Urine Protein (Negative) Urine Glucose (UA) (Negative) Urine Ketones (Negative) Urine Blood (Negative) Urine Nitrite (Negative) Urine Bilirubin (Negative) Urine Urobilinogen (Negative) Ur Leukocyte Esterase (Negative) Hepatitis C Ab Screen Pos H (Neg) 11/18/18 Range/Units 14:40 WBC 7.11 (4.8-10.8) K/uL RBC 5.06 (4.7-6.1) M/uL Hgb 15.6 (14.0-18.0) g/dL Hct 43.5 (42-52) % MCV 86.0 (80-100) fL MCH 30.8 (25-34) pg MCHC 35.9 (32-36) g/dL RDW Std Deviation 41.1 (36.4-46.3) fL RDW Coeff of John 13.1 (11.5-14.5) % Plt Count 206 (130-400) K/uL MPV 10.9 H (7.4-10.4) fL Immature Gran % (Auto) 0.3 % Neut % (Auto) 73.7 % Lymph % (Auto) 20.7 % [place] % (Auto) 5.1 % Eos % (Auto) 0.1 % Baso % (Auto) 0.1 % Immature Gran # (Auto) 0.02 (0.00-0.02) K/uL Neut # (Auto) 5.24 (1.4-6.5) K/uL Lymph # (Auto) 1.47 (1.2-3.4) K/uL [place] # (Auto) 0.36 (0.11-0.59) K/uL Eos # (Auto) 0.01 (0-0.5) K/uL Baso # (Auto) 0.01 (0-0.2) K/uL PT (9.0-12.0) Seconds INR (0.9-1.1) APTT (21.0-31.0) Seconds PTT Ratio Sodium (136-145) mmol/L Potassium (3.5-5.1) mmol/L Chloride (98-107) mmol/L Carbon Dioxide (21-32) mmol/L Anion Gap (3-11) BUN (7-18) mg/dl Creatinine (0.6-1.4) mg/dl Est Cr Clr Drug Dosing ml/min Est GFR ( Amer) Est GFR (Non-Af Amer) BUN/Creatinine Ratio (10-20) Glucose (70-99) mg/dl Calcium (8.5-10.1) mg/dl Total Bilirubin (0.2-1) mg/dl AST (15-37) U/L ALT (12-78) U/L Alkaline Phosphatase (45-117) U/L Total Protein (6.4-8.2) gm/dl Albumin (3.4-5.0) gm/dl Globulin (2.5-4.0) gm/dl Albumin/Globulin Ratio (0.9-2) Lipase (73-393) U/L Urine Color Urine Appearance (Clear) Urine pH (4.5-7.5) Ur Specific [place] (1.000-1.030) Urine Protein (Negative) Urine Glucose (UA) (Negative) Urine Ketones (Negative) Urine Blood (Negative) Urine Nitrite (Negative) Urine Bilirubin (Negative) Urine Urobilinogen (Negative) Ur Leukocyte Esterase (Negative) Hepatitis C Ab Screen (Neg) _ (1) Dysphagia Dysphagia type: unspecified Qualified Code(s): R13.10 - Dysphagia, unspecified
[2018-11-19] MEDS ORDERED: PANTOprazole 40 MG in SYRINGE 0 ML IV SCH (11:00)
--- NOTE | 2018-11-19 12:44 | Anesthesiology Consultation ---
Date of Service November 19, 2018 Assessment & Plan (1) Encounter for pre-operative examination: Chart Review Chart Review: Acceptable Risk for Surgery and Patient NOT seen in Pre Admission Testing Consults Requested none ASA ASA2 NPO Date Last Intake of Fluids: 11/18/18 Time Last Intake of Fluids: 10:00 Date Last Intake of Solids: 11/17/18 Time Last Intake of Solids: 06:00 History Surgery Operation Date: 11/19/18 10:15 Proposed Procedures p Esophagogastroduodenoscopy Dr Tyrone Hansen Height/Weight Height: 5 ft 10 in Weight: 97 kg Allergies Allergy/AdvReac Type Severity Reaction Status Date / Time No Known Allergies Allergy Verified 11/18/18 15:04 Medications Home Medications Medication Instructions Recorded Confirmed Last Taken amoxicillin-pot clavulanate 1 tab PO BID 11/12/18 11/18/18 11/18/18 08:00 [Augmentin] diphenhydramine HCl [Benadryl 25 mg PO Q4 PRN 11/18/18 11/18/18 11/18/18 Allergy] prednisone 40 mg PO DAILY 11/18/18 11/18/18 11/18/18 08:00 LAST DOSE OF COURSE Active Medications Generic Name Dose Route Start Last Admin Trade Name Freq PRN Reason Stop Dose Admin Pantoprazole Sodium 40 mg/ 10 mls @ 5 mls/min 11/19/18 11:00 11/19/18 11:41 Syringe IV 12/19/18 10:59 5 mls/min DAILY@1100 LACI Administration Ampicillin Sodium/Sulbactam 104 mls @ 200 mls/hr 11/18/18 19:00 11/19/18 06: 53 Sodium 1,500 mg/ Sodium IV 11/20/18 18:59 Infused Chloride Q6H LACI Infusion Past Medical History Medical History Tobacco use (Chronic) Chest congestion (Acute) Bronchitis (Acute) Past Family History Family History Other Breast cancer Diabetes Stroke Past Surgical History Surgical History History of appendectomy (Resolved) Social History Smoking Status: Current every day smoker tobacco type: cigarettes Smoking cigarettes per day: 0.5-1ppd x 50 years Do You Dip or Chew Tobacco: No Hx Alcohol Use: No Hx Substance Use: No Physical Exam Vital Signs Last Vital Signs Temp 36.7 C 11/19/18 12:28 Pulse 58 L 11/19/18 12:28 Resp 16 11/19/18 12:28 BP 169/80 H 11/19/18 12:28 Pulse Ox 98 11/19/18 12:28 Testing Laboratory Results 11/19/18 05:46 11/19/18 05:46 PT 11.5 Seconds (9.0-12.0) 11/18/18 14:40 INR 1.1 (0.9-1.1) 11/18/18 14:40 APTT 28.0 Seconds (21.0-31.0) 11/18/18 14:40 Urine Color Yellow 11/18/18 15:00 Urine Appearance Clear (Clear) 11/18/18 15:00 Urine pH 8.0 (4.5-7.5) H 11/18/18 15:00 Ur Specific [place] 1.007 (1.000-1.030) 11/18/18 15:00 Urine Protein Negative (Negative) 11/18/18 15:00 Urine Glucose (UA) Negative (Negative) 11/18/18 15:00 Urine Ketones Trace (Negative) H 11/18/18 15:00 Urine Nitrite Negative (Negative) 11/18/18 15:00 Ur Leukocyte Esterase Negative (Negative) 11/18/18 15:00
[2018-11-19] MEDS ORDERED: ePHEDrine sulfate 50 MG/ML AMP IV PRN (12:48)
[2018-11-19] MEDS ORDERED: ATROPINE SULFATE 0.1 MG/ML 10ML SYR IV PRN (12:48)
[2018-11-19] MEDS ORDERED: LIDOCAINE HCL 2% 2 ML VIAL/AMP(20MG/ML) INFIL ONE (13:18)
[2018-11-19] MEDS ORDERED: PROPOFOL IV EMULSION 10 MG/ML 20 ML VIAL IV ONE (13:18)
--- NOTE | 2018-11-19 13:26 | GI REPORT ---
Patient Name: Mukund Camacho Procedure Date: 11/19/2018 1:00 PM Date of : 1955 Admit Type: Inpatient Age: 63 Gender: Male Attending MD: Steven Hansen DO Procedure: Upper GI endoscopy Providers: Steven Hansen DO Referring MD: Dominguez Maher MD, Asya Brown Indications: Dysphagia Medicines: Monitored Anesthesia Care Complications: No immediate complications. Estimated blood loss: Minimal. Estimated Blood Loss: Estimated blood loss was minimal. Procedure: Pre-Anesthesia Assessment: - Prior to the procedure, a History and Physical was performed, and patient medications, allergies and sensitivities were reviewed. The patient's tolerance of previous anesthesia was reviewed. - The risks and benefits of the procedure and the sedation options and risks were discussed with the patient. All questions were answered and informed consent was obtained. - Patient identification and proposed procedure were verified prior to the procedure by the physician, the nurse and the quarry worker. The procedure was verified in the procedure room. - Pre-procedure physical examination revealed no contraindications to sedation. - ASA Grade Assessment: II - A patient with mild systemic disease. - After reviewing the risks and benefits, the patient was deemed in satisfactory condition to undergo the procedure. - The anesthesia plan was to use monitored anesthesia care (MAC). - Immediately prior to administration of medications, the patient was re-assessed for adequacy to receive sedatives. - The heart rate, respiratory rate, oxygen saturations, blood pressure, adequacy of pulmonary ventilation, and response to care were monitored throughout the procedure. - The physical status of the patient was re-assessed after the procedure. After obtaining informed consent, the endoscope was passed under direct vision. Throughout the procedure, the patient's blood pressure, pulse, and oxygen saturations were monitored continuously. The Endoscope was introduced through the mouth, and advanced to the third part of duodenum. The upper GI endoscopy was accomplished without difficulty. The patient tolerated the procedure well. Findings: No endoscopic abnormality was evident in the esophagus to explain the patient's complaint of dysphagia. It was decided, however, to proceed with dilation of the entire esophagus. A guidewire was placed and the scope was withdrawn. Dilation was performed with a Savary dilator with no resistance at 54 Fr. The endoscope was then reinserted to evaluate the success of the procedure. Estimated blood loss: none. LA Grade A (one or more mucosal breaks less than 5 mm, not extending between tops of 2 mucosal folds) esophagitis with no bleeding was found in the lower third of the esophagus. The esophagus and gastroesophageal junction were examined with white light. There were esophageal mucosal changes suspicious for Yepez's esophagus. These changes involved the mucosa at the upper extent of the gastric folds (40 cm from the incisors) extending to the Z-line (37 cm from the incisors). Three tongues of salmon-colored mucosa were present from 37 to 40 cm. The maximum longitudinal extent of these esophageal mucosal changes was 3 cm in length. Biopsies were taken with a cold forceps for histology. Estimated blood loss was minimal. Diffuse mild inflammation characterized by erythema and granularity was found in the entire examined stomach. Biopsies were taken with a cold forceps for histology. Estimated blood loss was minimal. Localized mild inflammation characterized by congestion (edema) and erythema was found in the duodenal bulb. Biopsies were taken with a cold forceps for histology. Estimated blood loss was minimal. The second portion of the duodenum and third portion of the duodenum were normal. Impression: - No specific endoscopic esophageal abnormality to explain patient's dysphagia. Esophagus dilated to 54 Fr today. - LA Grade A reflux esophagitis. - Esophageal mucosal changes suspicious for Yepez's esophagus. Biopsied. - Mild gastritis. Biopsied. - Duodenitis. Biopsied. - Normal second portion of the duodenum and third portion of the duodenum. Recommendation: - [facility] care. - Advance diet as tolerated today. - Use Prilosec (omeprazole) 40 mg PO daily. - Repeat upper endoscopy in 1 year for surveillance based on pathology results. - Return to GI office PRN. Steven Hansen D.O. Steven Hansen DO 11/19/2018 1:26:10 PM This report has been signed electronically. Note Initiated On: 11/19/2018 1:00 PM Number of Addenda: 0 I attest to the content of the Intraoperative Record and orders documented therein, exceptions below {[id number]}
--- NOTE | 2018-11-19 14:32 | Procedure Note ---
Procedure Note Date of Service November 19, 2018 The patient underwent upper endoscopy today. We did find mild esophagitis and what appears to be evidence of Yepez's esophagus. Empiric esophageal dilation was performed however no specific obstructing lesion was noted today. Recommendations Advance diet as tolerated Omeprazole 40 mg/day Clinic follow-up in 6 months Repeat upper endoscopy in 1 year Please call with any questions or concerns
--- NOTE | 2018-11-19 16:37 | Anesthesiology Progress Note ---
Date of Service November 19, 2018 Anesthesia Post Procedure Vital Signs Vital Signs: Temp Pulse Pulse Resp BP BP Pulse Ox 11/19/18 15:54 36.5 C 55 L 18 148/75 H 99 11/19/18 13:50 55 L 18 156/79 H 100 11/19/18 13:35 54 L 18 136/66 98 11/19/18 13:20 65 16 121/66 95 11/19/18 12:28 36.7 C 58 L 16 169/80 H 98 11/19/18 08:01 36.7 C 57 L 20 146/78 H 97 11/18/18 23:09 36.8 C 96 H 18 162/90 H 97 11/18/18 17:00 74 18 166/98 H 97 Notes Mental Status: alert / awake / arousable Patient Amnestic to Procedure: Yes Nausea / Vomiting: adequately controlled Pain: adequately controlled Airway Patency, RR, SpO2: stable & adequate BP & HR: stable & adequate Hydration State: stable & adequate Anesthetic Complications: no major complications apparent and Pt Satisfied with anesthetic care
--- NOTE | 2018-11-19 18:56 | Hospitalist Progress Note ---
Date of Service November 19, 2018 Assessment & Plan (1) Dysphagia: Onset of URI symptoms 4 weeks ago which has progressed to dysphagia with solids and liquids. Denies painful swallowing. Decreased oral intake secondary to symptoms. Reports 20 pound weight loss over past 3 days. In ER was given pepcid and protonix IV, 1L NSS. He was unable to completely swallow GI cocktail and coughed it out. No CP or SOB or dizziness currently -Protonix IV -Appreciate GI input and recommendation as below:: We did find mild esophagitis and what appears to be evidence of Yepez's esophagus. Empiric esophageal dilation was performed however no specific obstructing lesion was noted today. Recommendations Advance diet as tolerated Omeprazole 40 mg/day Clinic follow-up in 6 months Repeat upper endoscopy in 1 year Please call with any questions or concerns Started on clear liquids orally and advance as tolerated Likely be discharged tomorrow (2) Tobacco use: -smoking cessation discussed. Reports has cut down past couple of weeks (3) Post-nasal drip: Subjective He is a 63 y/o M without known medical problems presented to ER from ENT office with c/o dysphagia. Pt states 4 weeks ago started with sore throat which then progressed to rhinorhea, sneezing and nasal congestion. Reports developed thick mucous that he was unable to blow or cough it out or swallow. 11/19 The patient was seen and examined in medical floor Status post EGD and dilatation of the esophagus by Dr. Hansen today No significant esophageal lesion identified He has a started with clear liquid following the EGD He complained to have some problem with swallowing after food this evening Denies any nausea and/or vomiting Physical Exam 2 Vital Signs (Past 24 Hours): Last Vital Signs Temp 36.5 C 11/19/18 15:54 Pulse 55 L 11/19/18 15:54 Resp 18 11/19/18 15:54 BP 148/75 H 11/19/18 15:54 Pulse Ox 99 11/19/18 15:54 Physical Exam: No apparent distress at rest Constitutional: WD/WN, vitals as above Eyes: PERRL, conjunctivae normal, anicteric sclerae ENMT: external ear and nose normal, oropharynx normal Neck: trachea midline, no thyromegaly Respiratory: normal respiratory effort Auscultation: lungs clear to auscultation bilaterally Cardiovascular: Rate/Rhythm: regular rate and regular rhythm Heart Sounds: normal S1 and normal S2 Gastrointestinal (Abdomen): Inspection/Auscultation: abdomen normal to inspection and normal bowel sounds Percussion/Palpation: abdomen soft; abdomen nontender Neurologic: PERRL, EOMI, accommodation nl, no face palsy, no dysarthria Results & Data Laboratory Results Short CBC 11/19/18 Range/Units 05:46 WBC 6.53 (4.8-10.8) K/uL Hgb 13.9 L (14.0-18.0) g/dL Hct 40.4 L (42-52) % Plt Count 157 (130-400) K/uL BMP 11/19/18 05:46 Sodium 143 Potassium 3.8 Chloride 112 H Carbon Dioxide 26 BUN 16 Creatinine 1.32 Glucose 85 Calcium 8.3 L Medications Administered Current Inpatient Medications Acetaminophen (Tylenol) 650 mg PO Q4H PRN PRN Reason: pain/fever Stop: 12/18/18 18:02 Pantoprazole Sodium 40 mg/ (Syringe) 10 mls @ 5 mls/min IV DAILY@1100 [facility] Stop: 12/19/18 10:59 Last Admin: 11/19/18 11:41 Dose: 5 mls/min Ampicillin Sodium/Sulbactam Sodium 1,500 mg/ Sodium Chloride 104 mls @ 200 mls/ hr IV Q6H [facility] Stop: 11/20/18 18:59 Last Infusion: 11/19/18 15:10 Dose: Infused _ (1) Dysphagia Dysphagia type: unspecified Qualified Code(s): R13.10 - Dysphagia, unspecified
[2018-11-19] MEDS ORDERED: AMPICILLIN/SULBACTAM SOD 1,500 MG in 0.9 % SODIUM CHLORIDE 100 ML IV SCH (19:10)
[2018-11-19] MEDS ORDERED: COUGH DROP (SUGAR FREE) LOZ 24 LOZ/1 BOX BUCCAL PRN (19:38)
[2018-11-19] MEDS ORDERED: COUGH DROP (SUGAR FREE) LOZ 24 LOZ/1 BOX BUCCAL ONE (19:40)
[2018-11-19] MEDS ORDERED: LORazepam 1 MG TAB SL STA (20:59)
[2018-11-20] MEDS: AMPICILLIN/SULBACTAM SOD 1,500 MG in 0.9 % SODIUM CHLORIDE 100 ML IV SCH ×3 (00:57→13:06)
[2018-11-20 06:09] LABS: Basophils # (auto) 0.02 K/uL (0-0.2); Basophils % (auto) 0.3 %; Eosinophils # (auto) 0.19 K/uL (0-0.5); Hemoglobin 14.1 g/dL (14.0-18.0); Immature Granulocytes # (auto) 0.01 K/uL (0.00-0.02); Immature Granulocytes % (auto) 0.2 %; Lymphocytes # (auto) 2.53 K/uL (1.2-3.4); Lymphocytes % (auto) 40.2 %; Mean Corpuscular Hgb Conc 34.4 g/dL (32-36); Mean Corpuscular Volume 87.2 fL (80-100); Mean Platelet Volume 10.9 fL (7.4-10.4); Monocytes # (auto) 0.45 K/uL (0.11-0.59); Monocytes % (auto) 7.1 %; Neutrophils % (auto) 49.2 %; Platelet Count 143 K/uL (130-400); RDW Coefficient of Variation 13.1 % (11.5-14.5)
[2018-11-20 06:42] LABS: BUN Creatinine Ratio 13.3 (10-20); Calcium 8.2 mg/dl (8.5-10.1); Creatinine Clr Calc Pharmacy 76.8 ml/min; Est GFR (African American) 79.5; Est GFR (Non-African American) 68.6; Magnesium 2.1 mg/dl (1.8-2.4); Potassium 3.8 mmol/L (3.5-5.1)
[2018-11-20 06:43] LABS: Phosphorus 2.7 mg/dl (2.5-4.9)
[2018-11-20] MEDS: PANTOprazole 40 MG TAB PO SCH (07:51)
--- NOTE | 2018-11-20 08:07 | Anesthesiology Progress Note ---
Date of Service November 20, 2018 Anesthesia Post Procedure Vital Signs Vital Signs: Temp Pulse Resp BP BP Pulse Ox 11/20/18 07:04 36.5 C 57 L 18 129/75 98 11/19/18 23:00 36.5 C 59 L 18 123/69 97 11/19/18 20:50 36.5 C 56 L 18 120/80 99 11/19/18 15:54 36.5 C 55 L 18 148/75 H 99 11/19/18 13:50 55 L 18 156/79 H 100 11/19/18 13:35 54 L 18 136/66 98 11/19/18 13:20 65 16 121/66 95 11/19/18 12:28 36.7 C 58 L 16 169/80 H 98 11/19/18 11:00 36.5 C 54 L 18 146/79 H Notes Mental Status: alert / awake / arousable and participated in evaluation Patient Amnestic to Procedure: Yes Nausea / Vomiting: adequately controlled Pain: adequately controlled Airway Patency, RR, SpO2: stable & adequate BP & HR: stable & adequate Hydration State: stable & adequate Anesthetic Complications: no major complications apparent and Pt Satisfied with anesthetic care
[2018-11-20] MEDS: FLUTICASONE PROPIONATE NA SPR 16 GM BTL SCH ×2 (09:47→21:08)
[2018-11-20] MEDS: methylPREDNISolone 20 MG in SYRINGE 0 ML IV SCH ×2 (10:52→21:07)
--- NOTE | 2018-11-20 16:09 | Hospitalist Progress Note ---
Date of Service November 20, 2018 Assessment & Plan (1) Dysphagia: Onset of URI symptoms 4 weeks ago which has progressed to dysphagia with solids and liquids. Denies painful swallowing. Decreased oral intake secondary to symptoms. Reports 20 pound weight loss over past 3 days. In ER was given pepcid and protonix IV, 1L NSS. He was unable to completely swallow GI cocktail and coughed it out. No CP or SOB or dizziness currently -Protonix IV -Appreciate GI input and recommendation as below:: We did find mild esophagitis and what appears to be evidence of Yepez's esophagus. Empiric esophageal dilation was performed however no specific obstructing lesion was noted today. Recommendations Advance diet as tolerated Omeprazole 40 mg/day Clinic follow-up in 6 months Repeat upper endoscopy in 1 year Please call with any questions or concerns Started on clear liquids orally and advance as tolerated Still not been able to eat normally We will try to advance diet as tolerated (2) Tobacco use: -smoking cessation discussed. Reports has cut down past couple of weeks (3) Post-nasal drip: Recent URI symptoms and was started on Augmentin. Has 2 days remaining to finish 10 day course. Today was last day of prednisone course -unasyn since NPO to finish antibiotic course History of long symptoms of allergic rhinitis Finish the course of antibiotic for possible sinusitis with Augmentin Will try steroid to decrease inflammation Flonase has been ordered DVT Prophylaxis -SCDs Full code Follows with Dr Bony Catherine for routine care Likely go home tomorrow Subjective He is a 63 y/o M without known medical problems presented to ER from ENT office with c/o dysphagia. Pt states 4 weeks ago started with sore throat which then progressed to rhinorhea, sneezing and nasal congestion. Reports developed thick mucous that he was unable to blow or cough it out or swallow. 2 The patient was seen and examined in medical floor Status post EGD and dilatation of the esophagus by Dr. Hansen today No significant esophageal lesion identified He has a started with clear liquid following the EGD He complained to have some problem with swallowing after food this evening Denies any nausea and/or vomiting 11/20 Still complains of dysphagia to all kinds of food Feels nasal congestion and sinus fullness Has been having nasal symptoms for more than 6 weeks Denies any fever and/or chills Physical Exam 2 Vital Signs (Past 24 Hours): Last Vital Signs Temp 36.5 C 11/20/18 07:04 Pulse 57 L 11/20/18 07:04 Resp 18 11/20/18 07:04 BP 129/75 11/20/18 07:04 Pulse Ox 98 11/20/18 07:04 Constitutional: WD/WN, vitals as above Eyes: PERRL, conjunctivae normal, anicteric sclerae ENMT: external ear and nose normal, oropharynx normal Neck: trachea midline, no thyromegaly Respiratory: normal respiratory effort Auscultation: lungs clear to auscultation bilaterally Cardiovascular: Rate/Rhythm: regular rate and regular rhythm Heart Sounds: normal S1 and normal S2 Gastrointestinal (Abdomen): Inspection/Auscultation: abdomen normal to inspection and normal bowel sounds Percussion/Palpation: abdomen soft; abdomen nontender Neurologic: PERRL, EOMI, accommodation nl, no face palsy, no dysarthria Results & Data Laboratory Results Short CBC 11/20/18 Range/Units 05:54 WBC 6.30 (4.8-10.8) K/uL Hgb 14.1 (14.0-18.0) g/dL Hct 41.0 L (42-52) % Plt Count 143 (130-400) K/uL BMP 11/20/18 05:54 Sodium 138 Potassium 3.8 Chloride 108 H Carbon Dioxide 24 BUN 15 Creatinine 1.12 Glucose 84 Calcium 8.2 L Medications Administered Current Inpatient Medications Acetaminophen (Tylenol) 650 mg PO Q4H PRN PRN Reason: pain/fever Stop: 12/18/18 18:02 Fluticasone Propionate (Flonase) 2 sprays NA BID [facility] Stop: 12/20/18 09:29 Last Admin: 11/20/18 09:47 Dose: 2 sprays Methylprednisolone 20 mg/ (Syringe) 0.32 mls @ 1.5 mls/min IV BID [facility] Stop: 12/20/18 09:59 Last Admin: 11/20/18 10:52 Dose: 1.5 mls/min Menthol (Nice) 1 barby BUCCAL PRN PRN PRN Reason: Sore Throat Stop: 12/19/18 19:37 Pantoprazole Sodium (Protonix) 40 mg PO QAM [facility] Stop: 12/20/18 08:59 Last Admin: 11/20/18 07:51 Dose: 40 mg _ (1) Dysphagia Dysphagia type: unspecified Qualified Code(s): R13.10 - Dysphagia, unspecified
[2018-11-21] MEDS: PANTOprazole 40 MG TAB PO SCH (08:59)
[2018-11-21] MEDS: FLUTICASONE PROPIONATE NA SPR 16 GM BTL SCH (08:59)
[2018-11-21] MEDS: methylPREDNISolone 20 MG in SYRINGE 0 ML IV SCH (09:00)
--- NOTE | 2018-11-21 16:32 | Hospitalist Progress Note ---
Date of Service November 21, 2018 Assessment & Plan (1) Dysphagia: Onset of URI symptoms 4 weeks ago which has progressed to dysphagia with solids and liquids. Denies painful swallowing. Decreased oral intake secondary to symptoms. Reports 20 pound weight loss over past 3 days. In ER was given pepcid and protonix IV, 1L NSS. He was unable to completely swallow GI cocktail and coughed it out. No CP or SOB or dizziness currently -Protonix IV -Appreciate GI input and recommendation as below:: We did find mild esophagitis and what appears to be evidence of Yepez's esophagus. Empiric esophageal dilation was performed however no specific obstructing lesion was noted today. Recommendations Advance diet as tolerated Omeprazole 40 mg/day Clinic follow-up in 6 months Repeat upper endoscopy in 1 year Please call with any questions or concerns Started on clear liquids orally and advance as tolerated Still not been able to eat normally We will try to advance diet as tolerated Tolerated solid food for the first time without any significant problem Will discharge home today (2) Tobacco use: -smoking cessation discussed. Reports has cut down past couple of weeks (3) Post-nasal drip: Recent URI symptoms and was started on Augmentin. Has 2 days remaining to finish 10 day course. Today was last day of prednisone course -unasyn since NPO to finish antibiotic course History of long symptoms of allergic rhinitis Finish the course of antibiotic for possible sinusitis with Augmentin Will try steroid to decrease inflammation Flonase has been ordered Seems to be improving with intravenous Solu-Medrol and Flonase Will discharge home on rapid tapering of steroid The patient is agreeable with this DVT Prophylaxis -SCDs Full code Follows with Dr Bony Catherine for routine care Likely go home tomorrow Subjective He is a 63 y/o M without known medical problems presented to ER from ENT office with c/o dysphagia. Pt states 4 weeks ago started with sore throat which then progressed to rhinorhea, sneezing and nasal congestion. Reports developed thick mucous that he was unable to blow or cough it out or swallow. 11/19 The patient was seen and examined in medical floor Status post EGD and dilatation of the esophagus by Dr. Hansen today No significant esophageal lesion identified He has a started with clear liquid following the EGD He complained to have some problem with swallowing after food this evening Denies any nausea and/or vomiting 11/20 Still complains of dysphagia to all kinds of food Feels nasal congestion and sinus fullness Has been having nasal symptoms for more than 6 weeks Denies any fever and/or chills 2/8 Has been feeling little better since receiving steroid Tolerated regular diet for lunch We will discharge home this afternoon Denies any other symptoms Physical Exam 2 Vital Signs (Past 24 Hours): Last Vital Signs Temp 36.5 C 11/21/18 15:00 Pulse 64 11/21/18 15:00 Resp 18 11/21/18 15:00 BP 137/74 11/21/18 15:00 Pulse Ox 96 11/21/18 15:00 Constitutional: WD/WN, vitals as above Eyes: PERRL, conjunctivae normal, anicteric sclerae ENMT: external ear and nose normal, oropharynx normal Neck: trachea midline, no thyromegaly Respiratory: normal respiratory effort Auscultation: lungs clear to auscultation bilaterally Cardiovascular: Rate/Rhythm: regular rate and regular rhythm Heart Sounds: normal S1 and normal S2 Gastrointestinal (Abdomen): Inspection/Auscultation: abdomen normal to inspection and normal bowel sounds Percussion/Palpation: abdomen soft; abdomen nontender Neurologic: PERRL, EOMI, accommodation nl, no face palsy, no dysarthria _ (1) Dysphagia Dysphagia type: unspecified Qualified Code(s): R13.10 - Dysphagia, unspecified
--- NOTE | 2018-11-22 18:40 | Discharge Summary ---
Date of Service November 22, 2018 Admission HPI Per Admitting Provider Pt is 63 y/o M without known medical problems presented to ER from ENT office with c/o dysphagia. Pt states 4 weeks ago started with sore throat which then progressed to rhinorhea, sneezing and nasal congestion. Reports developed thick mucous that he was unable to blow or cough it out or swallow. He saw PCP and was started on Augmentin x 10 days on 11/10/18. Feels progressive trouble swallowing with both liquids and solids. [place] like things were getting a little better this morning and drank a couple of cups of coffee without difficulty and then tried eating small bite of scrambled eggs and felt like got stuck in his throat. When this happens pt states he can't get it to go down and can't cough or vomit it out. He usually walks around house for couple of minutes until symptoms resolve. Admits when this happens he feels like can't swallow and can' t breath and it makes him feel anxious. Denies pain with swallowing. Denies CP. States never really had any cough, he has just been trying to make himself cough to try to relieve symptoms. Reports feels like can't swallow when lying supine also. He has not been sleeping well. Reports hasn't ate or drank much over past 3 weeks and has lost approx 20 pounds. Pt states this morning felt dizzy. Was seen in ER on 11/12/18 and had normal WBC, negative troponin, negative CXR, CT Chest was negative for PE. Was started on prednisone x 5 days and inhaler. Seen in ER on 11/15/18: had CT sinus which were clear. This morning was at ENT office- Dr Dangelo. Had reported normal ENT exam and laryngoscopy and was referred to ER for further evaluation. Denies hx trouble swallowing in past. Reports has heartburn a few times a month when eats tomato sauce late at night. Was taking aspirin 81mg daily, denies other NSAID use. Drinks 6 cups coffee daily. Smokes 0.5-1ppd. Denies ETOH use. Denies fever/ chills, diaphoresis, N/V/D/C, GONZALEZ, syncope, vision changes, neck pain, palpitations, otalgia, abdominal pain, paresthesias, extremity edema, rashes, urinary symptoms. Admission Exam Per Admitting Provider Vital Signs (Past 24 Hours): Last Vital Signs Temp 36.7 C 11/18/18 14:05 Pulse 80 11/18/18 15:55 Resp 18 11/18/18 15:55 BP 147/77 H 11/18/18 15:55 Pulse Ox 97 11/18/18 15:55 Physical Exam: General: no distress, WDWN Head: normocephalic, atraumatic Eyes: PERRL, EOM's intact, conjunctiva non-injected, anicteric ENT: normal inspection external ears, nose, mucous membranes moist; swallowing saliva Neck: supple, trachea midline, non-tender Lungs: clear, no respiratory distress, no wheezing/rhonchi/rales CV: RRR, no murmur, no pretibial edema Abd: normal BS, soft, non-tender Ext: no cyanosis, no calf tenderness Neuro: A&O x 3, no focal deficits noted, normal affect Skin: warm, dry Principal Diagnosis Dysphasia status post EGD and esophageal dilatation, acute sinusitis, chronic rhinitis Discharge Exam Constitutional WD/WN, vitals as above Eyes PERRL, conjunctivae normal, anicteric sclerae ENMT external ear and nose normal, oropharynx normal Neck trachea midline, no thyromegaly Respiratory normal respiratory effort Auscultation: lungs clear to auscultation bilaterally Cardiovascular Rate/Rhythm: regular rate and regular rhythm Heart Sounds: normal S1 and normal S2 Gastrointestinal (Abdomen) Inspection/Auscultation: abdomen normal to inspection and normal bowel sounds Percussion/Palpation: abdomen soft; abdomen nontender Neurologic PERRL, EOMI, accommodation nl, no face palsy, no dysarthria Discharge Data Allergies Allergy/AdvReac Type Severity Reaction Status Date / Time No Known Allergies Allergy Verified 11/18/18 15:04 Consultations 11/18/18 15:41 ED Decision to Admit Stat 11/18/18 18:03 Consult Gastroenterology Routine Procedures Performed Operation Date: 11/19/18 10:15 Actual Procedures p EGD Biopsy Cytology(Left) - [facility] (1) Dysphagia: Onset of URI symptoms 4 weeks ago which has progressed to dysphagia with solids and liquids. Denies painful swallowing. Decreased oral intake secondary to symptoms. Reports 20 pound weight loss over past 3 days. In ER was given pepcid and protonix IV, 1L NSS. He was unable to completely swallow GI cocktail and coughed it out. No CP or SOB or dizziness currently -Protonix IV -Appreciate GI input and recommendation as below:: We did find mild esophagitis and what appears to be evidence of Yepez's esophagus. Empiric esophageal dilation was performed however no specific obstructing lesion was noted today. Recommendations Advance diet as tolerated Omeprazole 40 mg/day Clinic follow-up in 6 months Repeat upper endoscopy in 1 year Please call with any questions or concerns Started on clear liquids orally and advance as tolerated Still not been able to eat normally We will try to advance diet as tolerated Tolerated solid food for the first time without any significant problem Will discharge home today (2) Tobacco use: -smoking cessation discussed. Reports has cut down past couple of weeks (3) Post-nasal drip: Recent URI symptoms and was started on Augmentin. Has 2 days remaining to finish 10 day course. Today was last day of prednisone course -unasyn since NPO to finish antibiotic course History of long symptoms of allergic rhinitis Finish the course of antibiotic for possible sinusitis with Augmentin Will try steroid to decrease inflammation Flonase has been ordered Seems to be improving with intravenous Solu-Medrol and Flonase Will discharge home on rapid tapering of steroid The patient is agreeable with this DVT Prophylaxis -SCDs Full code Follows with Dr Bony Catherine for routine care Likely go home tomorrow Total Time Total Time Spent Total Time Spent (In Minutes): 35 minutes Total Time Includes: Examination of the Patient, Discharge Planning, Medication Reconciliation and Communication With Other Providers Discharge Plan Discharge Items Patient Disposition: Home - Self-Care Reason For Visit: DYSPHAGIA Discharge Diagnosis: Dysphasia status post EGD and esophageal dilatation, acute sinusitis, chronic rhinitis Condition: Good Discharge Goals: Decrease discomfort, Improve disease control and Improve function Activity: Resume your previous activity Non-emergency contact: Primary Care Provider Call non-emergency contact if: you have any medication questions and your symptoms worsen Follow-up/Referrals: Nieves Sarabia MD [Primary Care Provider] - (Please make an appointment with your primary care doctor in 1 week) Diet: Regular Addtl Provider Instructions: Please quit smoking Prescriptions: New pantoprazole 40 mg Tablet,Delayed Release (Dr/Ec) 40 mg PO QAM 30 Days Qty: 30 RF: 0 fluticasone 50 mcg/actuation [place],Suspension 2 spry NA BID 30 Days Qty: 1 RF: 0 prednisone 10 mg tablet 10 mg PO UD Qty: 20 RF: 0 Continue prednisone 20 mg Tablet 40 mg PO DAILY RF: 0 diphenhydramine HCl [Benadryl Allergy] 25 mg Tablet 25 mg PO Q4 PRN (Reason: Congestion) RF: 0 Discontinued amoxicillin-pot clavulanate [Augmentin] 875-125 mg tablet 1 tab PO BID RF: 0 Visit Report Forms: Smoking Cessation Stand-Alone Forms: [facility] Discharge Orders: Discharge Order (Routine); Ordered 11/21/18 Ordered By: Asya Brown Admission Data Admit Date/Time: 11/20/18 12:55 Attending Provider: Asya Brown Admit Provider: Pool Acosta Primary Care Provider: Nieves Sarabia Other Providers: Stevne Hansen ; Pool Acosta Service: Medical Other Interventions: Discharge Summary Assessment (RN) Last Done: 11/21/18 18:30 DC Date/Time DO NOT enter until pt leaves facility: 11/21/18 18:50
== END 2018-11-21 18:50 | disposition home or self-care (01) | DRG 392 ==
LOC: 4W 13:52 → ED 13:52 → 4W 17:13

== ENCOUNTER 2024-10-08 13:57 | Observation (INO) ==
[2024-10-08 14:04] VITALS: RESP 18
[2024-10-08 14:31] LABS: Basophils # (auto) 0.03 K/uL (0.00-0.20); Basophils % (auto) 0.4 %; Eosinophils # (auto) 0.13 K/uL (0.00-0.50); Eosinophils % (auto) 1.9 %; Hematocrit (blood only) 44.8 % (42.0-52.0); Hemoglobin 15.5 g/dl (14.0-18.0); Immature Granulocytes # (auto) 0.01 K/uL (0.01-0.20); Immature Granulocytes % (auto) 0.1 %; Lymphocytes # (auto) 2.34 K/uL (1.20-3.40); Lymphocytes % (auto) 34.9 %; Mean Corpuscular Hemoglobin 30.1 pg (25.0-34.0); Mean Corpuscular Hgb Conc 34.6 g/dL (32.0-36.0); Mean Platelet Volume 10.4 fL (9.4-12.4); Monocytes # (auto) 0.56 K/uL (0.11-0.59); Monocytes % (auto) 8.3 %; Neutrophils # (auto) 3.64 K/uL (1.40-6.50); Neutrophils % (auto) 54.4 %; Platelet Count 214 K/uL (130-400); RDW Coefficient of Variation 12.8 % (11.5-14.5); RDW Standard Deviation 40.7 fL (36.4-46.3); Red Blood Count 5.15 M/uL (4.70-6.10); White Blood Count 6.71 K/ul (4.8-10.8)
[2024-10-08 14:48] LABS: Albumin Globulin Ratio 1.2 (0.9-2); Albumin Level 4.3 gm/dl (3.4-5.0); BUN Creatinine Ratio 16.2 (10-20); Bilirubin,Total 0.4 mg/dl (0.2-1.0); Calcium 9.7 mg/dl (8.6-10.3); Creatinine Clr Calc Pharmacy 55.5 ml/min; Globulin 3.5 gm/dl (2.5-4.0); Potassium 4.1 mmol/L (3.5-5.1); Total Protein 7.8 gm/dl (6.0-8.3)
[2024-10-08 14:53] LABS: Troponin I High Sensitivity 4.9 pg/ml (0-20)
[2024-10-08 15:08] LABS: Partial Thromboplastin Ratio 1.1; Partial Thromboplastin Time 29 Seconds (21-31); Prothrombin Time 10.9 Seconds (9.0-12.0)
--- NOTE | 2024-10-08 15:13 | XRay Report ---
XR chest 1V not portable CLINICAL HISTORY: Chest pain, nonspecific TECHNIQUE: Single frontal radiograph of the chest was obtained. Comparison: Comparison is made to chest radiograph 11/18/2018 FINDINGS: No lines and tubes are seen. The cardiomediastinal silhouette is normal. The lungs are clear. No evid ence of pleural effusion or pneumothorax. IMPRESSION: No acute chest disease. ACT 112: Negative or not required by law. Electronically signed by: Kayden Zheng M.D. 10/08/2024 3:12 PM
[2024-10-08] MEDS: ASPIRIN 81 MG CHEW PO STA (16:33)
--- NOTE | 2024-10-08 17:13 | History & Physical Report ---
Date of Service October 08, 2024 Assessment & Plan (1) Chest pain: Plan: Patient is 69 year old male with PMH esophagitis, Yepez's esophagus presented to ER with c/o exertional CP x 6 days. Had chest pressure with walking in to ER today, resolved with rest after approximately 10 minutes In ER BP noted to be elevated at 213/104. Has trended down to SBP in 160s without treatment Initial troponin negative. Initial EKG sinus rhythm, PVCs, no acute ST elevation CXR: no acute cardiopulmonary findings R/O ACS. DDx: hypertensive emergency/urgency, esophageal spasm. Risk factors: tobacco use Pt denies any current CP, SOB Monitor Vitals Repeat EKG in am Will trend troponin Echo Lipid panel in am In ER given aspirin 324mg Will start daily aspirin Nitro prn CP and repeat EKG for CP (2) Hypertensive urgency: Plan: In ER BP noted to be elevated at 213/104. Has trended down to SBP in 160s without treatment hypertensive urgency. Denies any current CP, SOB, GONZALEZ, dizziness. possible underlying undiagnosed hypertension, ACS r/o as above Monitor BP, may need to add BP agent (3) CKD (chronic kidney disease), stage III: Plan: Cr: 1.48. Baseline appears 1.4 Monitor renal functions, avoid nephrotoxic agents when able (4) Tobacco use: Plan: Has cut back to 1/2ppd Denies nicotine patch Smoking cessation encouraged (5) Barretts esophagus: Plan: History esophagitis and Yepez's esophagus on EGD and biopsy in 2019 Patient no longer taking PPI DVT Prophylaxis Heparin SQ Admit telemetry DNR/DNI as per discussion with pt Has not seen PCP for years. Previously followed with Dr Nuñez Pt was seen and care coordinated with Dr Everett. See addendum I spent a total of 68 minutes reviewing notes, outpatient records, labs, medication, coordinating, documenting and providing care for this patient excluding time spent in the performance of separately billed services. History of Present Illness Chief Complaint: CP Primary Care Provider: Nieves Nuñez MD Patient is 69 year old male with PMH esophagitis, Yepez's esophagus presented to ER with c/o intermittent CP x 6 days. Patient states 6 days ago was shoveling snow and at that time he was feeling fine. Reports following day started with midsternal chest pressure and heaviness and SOB. He is unsure what he was doing at that time. Since that time he has had progressive exertional chest pressure. Initially started with shoveling snow again and now chest pressure with minimal exertion. He reports walking through a parking lot he will get midsternal chest pressure and heaviness that is nonradiating. He reports he rested and within approximately 10 minutes chest pressure resolves. Denies any associated dizziness, diaphoresis, palpitations. Denies neck pain, jaw pain, arm pain. Today walking through parking lot to ER had chest pressure that resolved with rest. Denies any current CP. He states hasn't seen PCP for at least 3 years. Not on any medications. In 11/2018 EGD with esophagitis, gastritis and was having dysphagia type symptoms and states was on PPI for awhile and stopped and denies any dysphagia recently. Biopsy was +Yepez's esophagus. States sometimes will have burping. Has chronic "throat clearing cough" and rhinorrhea in the morning. Denies fever/chills, diaphoresis, N/V/D/C, GONZALEZ, dizziness, syncope, vision changes, neck pain, indigestion, orthopnea, palpitations, sore throat, choking, otalgia, rhinorrhea, abdominal pain, paresthesias, weakness, extremity weakness, extremity edema, rashes, urinary symptoms. Allergies Allergy/AdvReac Type Severity Reaction Status Date / Time No Known Allergies Allergy Verified 10/08/24 16:51 Home Medications Medication Instructions Recorded Confirmed Type No Known Home Medications 10/08/24 10/08/24 History Past Med/Surg History Problem List (Updated 10/08/24 @ 18:09 by Yris Lizarraga PA-C) CKD (chronic kidney disease), stage III Hypertensive urgency Encounter for pre-operative examination Tobacco use (Chronic) Dysphagia (Acute) Chest pain (Acute) Medical History (Updated 10/08/24 @ 18:09 by Yris Lizarraga PA-C) Barretts esophagus Surgical History (Updated 10/08/24 @ 17:59 by Yris Lizarraga PA-C) History of appendectomy Family History Other Breast cancer Diabetes Stroke Social History (Reviewed 10/08/24 @ 17:59 by BRIEN Parker Smoking Status: Current every day smoker Cigarettes Per Day: 0.5 ppd; Second Hand Exposure: No; Do You Dip or Chew Tobacco: No; Hx Alcohol Use: No Hx Substance Use: No Preferred Language: Mongolian Communication Ability: Effective Software Educator Required: No Beliefs That Will Affect Care: None Current Living Situation: Significant Other Feels Safe at Home: Yes Assistive Devices: None Review of Systems Review of Systems: All systems reviewed & are unremarkable except as noted in HPI & below Physical Exam Physical Exam: General: no distress, WDWN Head: normocephalic, atraumatic Eyes: conjunctiva non-injected, anicteric ENT: normal inspection external ears, nose, mucous membranes moist Neck: supple, trachea midline Lungs: clear, no respiratory distress, no wheezing/rhonchi/rales CV: RRR, no murmur, no pretibial edema Abd: normal BS, soft, non-tender Ext: no cyanosis, no calf tenderness Neuro: A&O x 3, no focal deficits noted, normal affect Skin: warm, dry Results & Data Results & Data Vital Signs (Past 12 Hours) Vital Signs Temp Pulse Resp BP Pulse Ox O2 Del Method O2 Flow Rate 10/08/24 16:30 64 18 171/85 H 97 Room Air 10/08/24 16:27 66 10/08/24 14:05 97 Room Air 10/08/24 14:05 97 Room Air 0 10/08/24 13:59 36.8 C 88 18 213/104 H 97 Room Air Laboratory Results Short CBC 10/08/24 Range/Units 14:16 WBC 6.71 (4.8-10.8) K/ul Hgb 15.5 (14.0-18.0) g/dl Hct 44.8 (42.0-52.0) % Plt Count 214 (130-400) K/uL BMP 10/08/24 14:16 Sodium 141 Potassium 4.1 Chloride 107 Carbon Dioxide 29 BUN 24 H Creatinine 1.48 H Glucose 106 H Calcium 9.7 Liver Function 10/08/24 Range/Units 14:16 Total Bilirubin 0.4 (0.2-1.0) mg/dl AST 18 (13-39) U/L ALT 16 (7-52) U/L Alkaline Phosphatase 59 (34-104) U/L Albumin 4.3 (3.4-5.0) gm/dl Diagnostic Findings Chest X-Ray 10/08/24 14:05 XR chest 1V not portable CLINICAL HISTORY: Chest pain, nonspecific TECHNIQUE: Single frontal radiograph of the chest was obtained. Comparison: Comparison is made to chest radiograph 11/18/2018 FINDINGS: No lines and tubes are seen. The cardiomediastinal silhouette is normal. The lungs are clear. No evidence of pleural effusion or pneumothorax. IMPRESSION: No acute chest disease. ACT 112: Negative or not required by law. Electronically signed by: Kayden Zheng M.D. 10/08/2024 3:12 PM ECG Additional Comments: EKG: Sinus rhythm, rate 83, PVC, no significant ST elevation or depressions noted per my interpretation Supervising Physician Co-Signing Physician Notes Attending Addendum: Case reviewed with the advanced practitioner. I have personally performed a history and physical examination on the patient. I have reviewed the advanced practitioner's documentation on the date of service referenced in note, and I agree with, and take responsibility for the plan of care. please refer to her notes for full details patient seen and examined, records reviewed by myself as well ASSESSMENT AND PLAN Chest pain rule out ACS versus unstable angina Troponin x 2 negative EKG no signs of acute ischemia or infarct Start aspirin daily, Lisinopril 5 mg daily Cardiology service consulted Hypertensive urgency Blood pressure improving Lisinopril 5 mg p.o. daily As needed hydralazine other diagnoses and plan of care as per advanced practitioner's notes Damon Everett MD (1) Chest pain Chest pain type: unspecified Qualified Code(s): R07.9 - Chest pain, unspecified
[2024-10-08] MEDS ORDERED: NITROGLYCERIN SL 0.4 MG/TAB TAB SL PRN (20:03)
[2024-10-08] MEDS ORDERED: ONDANSETRON INJ 2 MG/ML 2 ML VIAL IV PRN (20:03)
[2024-10-08] MEDS ORDERED: ACETAMINOPHEN 325 MG TAB PO PRN (20:03)
[2024-10-08] MEDS ORDERED: POLYETHYLENE (MIRALAX) 17 GM PACK PO PRN (20:03)
[2024-10-08] MEDS ORDERED: hydrALAZINE HCL 20 MG/ML VIAL IV PRN (20:03)
[2024-10-08] MEDS ORDERED: HEPARIN SOD 5,000 UNIT/0.5 ML VIAL SQ SCH (22:00)
[2024-10-08] MEDS: METOPROLOL TARTRATE 25 MG TAB PO SCH (22:30)
--- NOTE | 2024-10-08 23:39 | Emergency Department Note ---
History of Present Illness General Chief Complaint: Chest Pain Stated Complaint: CHEST PRESSURE, SOB/COUPLE DAYS AGO Time Seen by Provider: 10/08/24 16:15 History of Present Illness Provider Complaint: chest pain Onset (ago): day(s) 3 Duration: intermittent and now resolved Onset: during exertion Pain Location: substernal Pain Radiation: none Severity: moderate Current Pain Intensity: 0 Quality: + tightness and + heaviness Relieved By: + rest Exacerbated By: + exertion Context: no recent illness, no recent surgery, no recent immobilization, no recent travel, no trauma/injury, no new medications or no history of DVT/PE Associated symptoms: + dyspnea; no nausea, no vomiting, no syncope, no palpitations, no fever, no cough or no leg swelling Treatments prior to arrival: none Home Medications Medication Instructions Recorded Confirmed Type No Known Home Medications 10/08/24 10/08/24 History Allergies Allergy/AdvReac Type Severity Reaction Status Date / Time No Known Allergies Allergy Verified 10/08/24 16:51 Past Med/Surg History Problem List (Updated 10/08/24 @ 23:57 by Kennedy Jiménez MD) Hypertensive urgency Encounter for pre-operative examination Tobacco use (Chronic) Dysphagia (Acute) Chest pain (Acute) Medical History CKD (chronic kidney disease), stage III Barretts esophagus Surgical History History of appendectomy Family History Other Breast cancer Diabetes Stroke Social History Smoking Status: Current every day smoker Tobacco Type: Cigarettes Cigarettes Per Day: 10; Second Hand Exposure: Yes; Do You Dip or Chew Tobacco: No; Tobacco Cessation Education Requested by Patient: No Hx Alcohol Use: No Hx Substance Use: No Preferred Language: Sinhala Communication Ability: Effective Smelter Charger Required: No Beliefs That Will Affect Care: None Current Living Situation: Significant Other Other Information That Helps Us Care for You: No Feels Safe at Home: Yes Safety Concerns: Feels Safe At This Time Assistive Devices: None Physical Exam Vital Signs Vital Signs - 24 hr 10/08/24 13:59 10/08/24 14:05 10/08/24 14:05 Temperature 36.8 C Temperature Source Temporal Artery Scan Pulse Rate 88 Respiratory Rate 18 Respiratory Effort / Characteristics Non-Labored Spontaneous Respiratory Depth Normal Respiratory Pattern Regular Blood Pressure 213/104 H Blood Pressure Mean 140 Pulse Oximetry 97 97 97 Oxygen Delivery Method Room Air Room Air Room Air Oxygen Flow Rate 0 Sepsis Recent Fever Within 48 Hours No Sepsis New/Unexplained Change in Mental Status No Sepsis Action Taken by Nursing No Action Required 10/08/24 16:27 10/08/24 16:30 Temperature Temperature Source Pulse Rate 66 64 Respiratory Rate 18 Respiratory Effort / Characteristics Respiratory Depth Respiratory Pattern Blood Pressure 171/85 H Blood Pressure Mean 104 Pulse Oximetry 97 Oxygen Delivery Method Room Air Oxygen Flow Rate Sepsis Recent Fever Within 48 Hours Sepsis New/Unexplained Change in Mental Status Sepsis Action Taken by Nursing Physical Exam GENERAL: oriented to person, place, and time. appears well-developed and well- nourished. HENT: Exam performed. - Head: Normocephalic and atraumatic. EYES: Conjunctivae and EOM are normal. Right eye exhibits no discharge. Left eye exhibits no discharge. No scleral icterus. NECK: Normal range of motion. Neck supple. No JVD present. CV: Normal rate, regular rhythm, normal heart sounds and intact distal pulses. There is no peripheral edema. Palpable radial pulses bue. PULM/CHEST: Effort normal and breath sounds normal. No respiratory distress. No stridor. no wheezes. no rales. ABD: The abdomen is soft. There is no tenderness. NEURO: Motor and sensation grossly intact. SKIN: Skin is warm and dry. He is not diaphoretic. PSYCH: normal mood and affect. Behavior is normal. Judgment and thought content normal. Course Course 1615: The patient was evaluated in room C4. A complete history and physical exam was performed Administered Medications Metoprolol Tartrate (Metoprolol Tartrate 25 Mg Tab) 12.5 mg PO BID LACI Stop: 11/07/24 21:29 Last Admin: 10/08/24 22:30 Dose: 12.5 mg Documented By: ANKITA Discontinued Medications Aspirin (Aspirin 81 Mg Chew) 324 mg PO NOW STA Stop: 10/08/24 16:28 Last Admin: 10/08/24 16:33 Dose: 324 mg Documented By: MEGGAN Medical Decision Making Laboratory Data Attestation: I reviewed the patient's lab results. 10/08/24 14:16 10/08/24 14:16 Labs: Lab Results 10/08/24 Range/Units 14:16 WBC 6.71 (4.8-10.8) K/ul RBC 5.15 (4.70-6.10) M/uL Hgb 15.5 (14.0-18.0) g/dl Hct 44.8 (42.0-52.0) % MCV 87.0 (80.0-100.0) fL MCH 30.1 (25.0-34.0) pg MCHC 34.6 (32.0-36.0) g/dL RDW Std Deviation 40.7 (36.4-46.3) fL RDW Coeff of John 12.8 (11.5-14.5) % Plt Count 214 (130-400) K/uL MPV 10.4 (9.4-12.4) fL Immature Gran % (Auto) 0.1 % Neut % (Auto) 54.4 % Lymph % (Auto) 34.9 % [place] % (Auto) 8.3 % Eos % (Auto) 1.9 % Baso % (Auto) 0.4 % Neut # (Auto) 3.64 (1.40-6.50) K/uL Lymph # (Auto) 2.34 (1.20-3.40) K/uL [place] # (Auto) 0.56 (0.11-0.59) K/uL Eos # (Auto) 0.13 (0.00-0.50) K/uL Baso # (Auto) 0.03 (0.00-0.20) K/uL Immature Gran # (Auto) 0.01 (0.01-0.20) K/uL PT 10.9 (9.0-12.0) Seconds INR 1.0 (0.9-1.1) APTT 29 (21-31) Seconds PTT Ratio 1.1 Sodium 141 (136-145) mmol/L Potassium 4.1 (3.5-5.1) mmol/L Chloride 107 (98-107) mmol/L Carbon Dioxide 29 (21-32) mmol/L Anion Gap 5 (3-11) BUN 24 H (6-23) mg/dl Creatinine 1.48 H (0.6-1.4) mg/dl Est Cr Clr Drug Dosing 55.5 ml/min eGFR 50.27 BUN/Creatinine Ratio 16.2 (10-20) Glucose 106 H (70-99(Fasting)) mg/dl Calcium 9.7 (8.6-10.3) mg/dl Total Bilirubin 0.4 (0.2-1.0) mg/dl AST 18 (13-39) U/L ALT 16 (7-52) U/L Alkaline Phosphatase 59 (34-104) U/L Troponin I High Sens 4.9 (0-20) pg/ml Total Protein 7.8 (6.0-8.3) gm/dl Albumin 4.3 (3.4-5.0) gm/dl Globulin 3.5 (2.5-4.0) gm/dl Albumin/Globulin Ratio 1.2 (0.9-2) Lipase 33 (11-82) U/L Imaging Data Chest x-ray: Attestation: I personally reviewed and interpreted this imaging study as follows: My impression: Chest x-ray negative. Airway clear. No pneumothorax. No consolidation. No cardiomegaly or cephalization.. No free air under the diaphragm. No fractures of the skeletal structures. Radiologist's impression: Chest X-Ray 10/08/24 14:05 XR chest 1V not portable CLINICAL HISTORY: Chest pain, nonspecific TECHNIQUE: Single frontal radiograph of the chest was obtained. Comparison: Comparison is made to chest radiograph 11/18/2018 FINDINGS: No lines and tubes are seen. The cardiomediastinal silhouette is normal. The lungs are clear. No evidence of pleural effusion or pneumothorax. IMPRESSION: No acute chest disease. ACT 112: Negative or not required by law. Electronically signed by: Kayden Zheng M.D. 10/08/2024 3:12 PM ECG Data Attestation: I personally reviewed and interpreted this ECG as follows: Indication: chest pain Rate (beats per minute): 83 Rhythm: normal sinus Findings: + PVC; no ST depression, no ST elevation or no prolonged QT MDM Narrative Cardiac monitoring: An order was placed for continuous cardiac monitoring. The monitor shows a rate of 80 with sinus rhythm interpreted by me Patient was seen during a time of extreme volume and extreme acuity. Nursing triage protocols were initiated labs and imaging was conducted by protocol in the triage area. Vital signs stable. Labs and imaging unremarkable. Physical exam within normal limits. Patient has moderate HEART score. [facility]. HEART Score for Major Cardiac Events from [email or web address] on 10/08/2024 All calculations should be rechecked by clinician prior to use RESULT SUMMARY: 5 points Moderate Score (4-6 points) Risk of MACE of 12-16.6%. INPUTS: History > 2 = Highly suspicious EKG > 0 = Normal Age > 2 = >=5 Risk factors > 1 = 1-2 risk factors Initial troponin > 0 = <=ormal limit Impression & Plan Chest pain Discharge Plan Visit Data Chief Complaint: Chest Pain Stated Complaint: CHEST PRESSURE, SOB/COUPLE DAYS AGO ED Provider: Kennedy Jiménez Discharge Problem: Chest pain Patient Disposition: Admitted As Inpatient Discharge Instructions Interventions: ED Discharge Assessment Last Done: 10/08/24 19:37 Discharge Problem: Chest pain Qualifiers: Chest pain type: unspecified Qualified Code(s): R07.9 - Chest pain, unspecified
[2024-10-09 04:28] VITALS: O2SAT 96
[2024-10-09 06:22] LABS: Hematocrit (blood only) 42.1 % (42.0-52.0); Hemoglobin 14.6 g/dl (14.0-18.0); Mean Corpuscular Hgb Conc 34.7 g/dL (32.0-36.0); Mean Corpuscular Volume 86.6 fL (80.0-100.0); Mean Platelet Volume 10.5 fL (9.4-12.4); Platelet Count 187 K/uL (130-400); RDW Coefficient of Variation 12.6 % (11.5-14.5); RDW Standard Deviation 40.1 fL (36.4-46.3); Red Blood Count 4.86 M/uL (4.70-6.10); White Blood Count 7.54 K/ul (4.8-10.8)
[2024-10-09 06:43] LABS: BUN Creatinine Ratio 16.5 (10-20); Calcium 9.1 mg/dl (8.6-10.3); Chol HDL Ratio 6.5 (0-5); Creatinine Clr Calc Pharmacy 64.7 ml/min; Potassium 4.7 mmol/L (3.5-5.1)
--- NOTE | 2024-10-09 08:16 | Cardiology Consultation ---
Date of Consultation October 09, 2024 Assessment & Plan (1) Hypertensive urgency: (2) Chest pain: (3) Tobacco use: (4) Dyslipidemia: Plan Patient admitted with chest pain, intermittent over the last several days. Found to be hypertensive on arrival > 200/100. HS troponin negative x3. EKG without ischemic changes. Echo results pending. BP treated with IV hydralazine then beta davide with metoprolol tartrate. Change metoprolol tartrate to low dose carvedilol 3.125 mg BID this morning. DOLLY not initiated as creatinine was 1.4-1.5 on arrival. Creatinine improved this morning. Add aspirin 81 mg daily Add statin - LDL 135 - Crestor 10 mg daily Ambulation encouraged today. Monitor BP and symptoms of chest pain/angina. If echo is unremarkable, BP improves with therapies, and no recurrent chest pain with walking, likely discharge later today. Recommend outpatient stress echo given episode of chest pain and cardiac risk factors (HTN, tobacco abuse) Case discussed with Dr. Le I spent a total of 50 minutes on the date of service in preparation, delivery, and documentation of the care provided to this patient, excluding any time spent in the performance of separately billed services. Luci Storey PA-C Department of Cardiology, [facility] This chart was completed in part utilizing Speech Voice Recognition Software. Grammatical errors, random word insertions, pronoun errors, and incomplete sentences are an occasional consequence of this system due to software limitations, ambient noise, and hardware issues. Any formal questions or concerns about the content, text, or information contained within the body of this dictation should be directly addressed to the provider for clarification. Supervising Physician Co-Signing Physician Notes I have reviewed the advanced practitioner's documentation on the date of service referenced in note, and I agree with, and take responsibility for the plan of care. I spent a total of [30] minutes coordinating, documenting, and providing care for this patient excluding time spent in the performance of separately billed services or time spent by another provider. 69-year-old male with Yepez's esophagus no prior cardiac problems, Patient reported last week he cleaned snow , 2 days later noticed mid sternal chest tightness lasted for 10 minutes resolved, has been having intermttent episodes on and off in emergency room noted to have elevated blood pressure 213 /104 pt has angel cardia instead of beta blockers he will benefit from Norvasc 5 mg for blood pressure control low salt diet continue with aspirin and statin no evidence of acute coronary syndrome discussed about further evaluation with stress testing , will need to have it as outpatient if recurrent chest pain he will need to come back to the ED History of Present Illness Reason for Consultation: CP; HTN Urgency Requesting Physician: Glenn Hospitalist Attending Physician: Dr. Le History of Present Illness Patient presented to [facility] with several days of exertional chest pain. Found to be significantly hypertensive on arrival with BP > 200/100. HS troponin negative x3 since admission. EKG demonstrating NSR with occ PVC. No acute ischemic changes. Symptoms began about 1 week prior to admission. He had been shoveling snow, felt well. several days later he noticed substernal "soreness" and chest tightness. Occurred at rest and with exertion. No radiation. No associated SOB, diaphoresis. Symptoms have been intermittent over the last few days. he called PCP office and was referred to the ER. Patient takes no medications on a regular basis. He does not like to take medications. He also avoids going for routine physicals. Last visit to PCP about 3 years ago. Upon arrival, patient was treated with IV hydralazine and ASA. Lisinopril was to be started but then discontinued due to elevated creatinine of 1.4-1.5. Improved this morning. metoprolol tartrate was initiated by hospitalist. At time of consult, patient resting in bed, feeling well. No recurrent chest pain since admission. He did not want to take morning antihypertensive medication. Echo completed and pending. No SOB. Allergies Allergy/AdvReac Type Severity Reaction Status Date / Time No Known Allergies Allergy Verified 10/08/24 16:51 Home Medications Medication Instructions Recorded Confirmed Type No Known Home Medications 10/08/24 10/08/24 History Patient History Medical History CKD (chronic kidney disease), stage III Barretts esophagus Surgical History History of appendectomy Family History Other Breast cancer Diabetes Stroke Social History Smoking Status: Current every day smoker Tobacco Type: Cigarettes Cigarettes Per Day: 10; Second Hand Exposure: Yes; Do You Dip or Chew Tobacco: No; Tobacco Cessation Education Requested by Patient: No Hx Alcohol Use: No Hx Substance Use: No Preferred Language: Japanese Communication Ability: Effective Purse Maker Required: No Beliefs That Will Affect Care: None Current Living Situation: Significant Other Other Information That Helps Us Care for You: No Feels Safe at Home: Yes Safety Concerns: Feels Safe At This Time Assistive Devices: None Review of Systems Review of Systems: All systems reviewed & are unremarkable except as noted in HPI & below Physical Exam Constitutional: WD/WN, vitals as above well developed; no acute distress Neck: trachea midline, no thyromegaly normal visual inspection Respiratory: normal respiratory effort, lungs clear to auscultation Cardiovascular: Rate/Rhythm: regular rate and regular rhythm Heart Sounds: normal S1 and normal S2; no murmur Vessels: no JVD Extremities: no edema Gastrointestinal (Abdomen): normal bowel sounds, soft, nontender, no hepatosplenomegaly Musculoskeletal: no cyanosis or clubbing, extremities motor strength 5/5 Skin: no rashes, warm and dry Neurologic: PERRL, EOMI, accommodation nl, no face palsy, no dysarthria Results & Data Vital Signs (Past 12 Hours) Vital Signs Temp Pulse Pulse Resp BP Pulse Ox O2 Del Method 10/09/24 07:20 63 10/09/24 04:15 36.5 C 59 L 18 137/76 96 Room Air 10/08/24 22:43 36.3 C L 62 18 148/73 H 95 Room Air 10/08/24 22:15 60 10/08/24 20:20 71 Laboratory Results Cardiac Enzymes 10/08/24 10/08/24 10/08/24 Range/Units 14:16 18:40 22:34 AST 18 (13-39) U/L Troponin I High Sens 4.9 10.9 D 8.9 (0-20) pg/ml Coagulation 10/08/24 Range/Units 14:16 PT 10.9 (9.0-12.0) Seconds APTT 29 (21-31) Seconds Lipids 10/09/24 Range/Units 05:59 Triglycerides 90 (0-150) mg/dl Cholesterol 181 (0-200) mg/dl HDL Cholesterol 28 mg/dl Cholesterol/HDL Ratio 6.5 H (0-5) CBC 10/08/24 10/09/24 Range/Units 14:16 05:59 WBC 6.71 7.54 (4.8-10.8) K/ul RBC 5.15 4.86 (4.70-6.10) M/uL Hgb 15.5 14.6 (14.0-18.0) g/dl Hct 44.8 42.1 (42.0-52.0) % Plt Count 214 187 (130-400) K/uL Neut # (Auto) 3.64 (1.40-6.50) K/uL Lymph # (Auto) 2.34 (1.20-3.40) K/uL [place] # (Auto) 0.56 (0.11-0.59) K/uL Eos # (Auto) 0.13 (0.00-0.50) K/uL Baso # (Auto) 0.03 (0.00-0.20) K/uL Comprehensive Metabolic Panel 10/08/24 10/09/24 Range/Units 14:16 05:59 Sodium 141 141 (136-145) mmol/L Potassium 4.1 4.7 (3.5-5.1) mmol/L Chloride 107 110 H (98-107) mmol/L Carbon Dioxide 29 27 (21-32) mmol/L BUN 24 H 21 (6-23) mg/dl Creatinine 1.48 H 1.27 (0.6-1.4) mg/dl Glucose 106 H 94 (70-99(Fasting)) mg/dl Calcium 9.7 9.1 (8.6-10.3) mg/dl AST 18 (13-39) U/L ALT 16 (7-52) U/L Alkaline Phosphatase 59 (34-104) U/L Total Protein 7.8 (6.0-8.3) gm/dl Albumin 4.3 (3.4-5.0) gm/dl Intake and Output 10/08/24 10/09/24 10/09/24 22:59 06:59 14:59 Intake Total 550 / 700 150 / 700 Balance 550 / 700 150 / 700 Intake: Oral 550 / 700 150 / 700 Other: Weight 101.4 kg Weight Measurement Method Standing Scale Diagnostic Findings Telemetry reviewed: NSR in the 60-70's. Occ PVC Echocardiogram ordered - results pending. EKG reviewed from 10/08/24: NSR at 83 bmp Occ PVC No acute ischemic changes compared with prior EKG in 2019 EKG reviewed from 10/09/24: NSR Low voltage QRS No acute ischemic changes PVC's no longer present Chest X-Ray 10/08/24 14:05 XR chest 1V not portable CLINICAL HISTORY: Chest pain, nonspecific TECHNIQUE: Single frontal radiograph of the chest was obtained. Comparison: Comparison is made to chest radiograph 11/18/2018 FINDINGS: No lines and tubes are seen. The cardiomediastinal silhouette is normal. The lungs are clear. No evidence of pleural effusion or pneumothorax. IMPRESSION: No acute chest disease. Medications Administered Current Inpatient Medications Acetaminophen (Acetaminophen 325 Mg Tab) 650 mg PO Q4H PRN PRN Reason: Pain or Fever Stop: 11/07/24 20:02 Aspirin (Aspirin 81 Mg Ectab) 81 mg PO DAILY LACI Stop: 11/08/24 08:59 Hydralazine HCl (Hydralazine Hcl 20 Mg/Ml Vial) 5 mg IV Q6H PRN PRN Reason: hypertension Stop: 11/07/24 20:02 Metoprolol Tartrate (Metoprolol Tartrate 25 Mg Tab) 12.5 mg PO BID LACI Stop: 11/07/24 21:29 Last Admin: 10/08/24 22:30 Dose: 12.5 mg Nitroglycerin (Nitroglycerin Sl 0.4 Mg/Tab Tab) 0.4 mg SL Q5M PRN PRN Reason: Chest Pain Stop: 11/07/24 20:02 Ondansetron HCl (Ondansetron Inj 2 Mg/Ml 2 Ml Vial) 4 mg IV Q6H PRN PRN Reason: Nausea Stop: 11/07/24 20:02 Polyethylene Glycol (Polyethylene (Miralax) 17 Gm Pack) 17 gm PO DAILY PRN PRN Reason: Constipation Stop: 11/07/24 20:02 (2) Chest pain Chest pain type: unspecified Qualified Code(s): R07.9 - Chest pain, unspecified
[2024-10-09] MEDS ORDERED: carvediloL 3.125 MG TAB PO SCH (08:25)
[2024-10-09] MEDS ORDERED: ASPIRIN 81 MG ECTAB PO SCH (09:00)
--- NOTE | 2024-10-09 10:00 | Electrocardiogram Report ---
Test Reason : Blood Pressure : */* mmHG Vent. Rate : 83 BPM Atrial Rate : 83 BPM P-R Int : 164 ms QRS Dur : 90 ms QT Int : 354 ms P-R-T Axes : 36 -15 7 degrees QTcB Int : 415 ms Sinus rhythm with occasional Premature ventricular complexes Otherwise normal ECG When compared with ECG of 18-Nov-2018 14:26, Premature ventricular complexes are now Present Confirmed by Melinda Soto (Carrie) on 10/09/2024 10:00:25 AM Referred By: REFERRED SELF Confirmed By: Melinda Soto
--- NOTE | 2024-10-09 11:40 | Electrocardiogram Report ---
Test Reason : Blood Pressure : */* mmHG Vent. Rate : 62 BPM Atrial Rate : 62 BPM P-R Int : 146 ms QRS Dur : 90 ms QT Int : 418 ms P-R-T Axes : 2 3 7 degrees QTcB Int : 424 ms Normal sinus rhythm Low voltage QRS Borderline ECG When compared with ECG of 08-Oct-2024 14:04, (unconfirmed) Premature ventricular complexes are no longer Present Confirmed by Melinda Soto (Carrie) on 10/09/2024 11:40:24 AM Referred By: REFERRED SELF Confirmed By: Melinda Soto
[2024-10-09] MEDS ORDERED: ROSUVASTATIN CALCIUM 10 MG TAB PO SCH (14:00)
[2024-10-09 15:25] VITALS: TEMP 97.7
--- NOTE | 2024-10-09 15:44 | Discharge Summary ---
Date of Service October 09, 2024 Admission HPI Per Admitting Provider Patient is 69 year old male with PMH esophagitis, Yepez's esophagus presented to ER with c/o intermittent CP x 6 days. Patient states 6 days ago was shoveling snow and at that time he was feeling fine. Reports following day started with midsternal chest pressure and heaviness and SOB. He is unsure what he was doing at that time. Since that time he has had progressive exertional chest pressure. Initially started with shoveling snow again and now chest pressure with minimal exertion. He reports walking through a parking lot he will get midsternal chest pressure and heaviness that is nonradiating. He reports he rested and within approximately 10 minutes chest pressure resolves. Denies any associated dizziness, diaphoresis, palpitations. Denies neck pain, jaw pain, arm pain. Today walking through parking lot to ER had chest pressure that resolved with rest. Denies any current CP. He states hasn't seen PCP for at least 3 years. Not on any medications. In 11/2018 EGD with esophagitis, gastritis and was having dysphagia type symptoms and states was on PPI for awhile and stopped and denies any dysphagia recently. Biopsy was +Yepez's esophagus. States sometimes will have burping. Has chronic "throat clearing cough" and rhinorrhea in the morning. Denies fever/chills, diaphoresis, N/V/D/C, GONZALEZ, dizziness, syncope, vision changes, neck pain, indigestion, orthopnea, palpitations, sore throat, choking, otalgia, rhinorrhea, abdominal pain, paresthesias, weakness, extremity weakness, extremity edema, rashes, urinary symptoms. Admission Exam Per Admitting Provider General: no distress, WDWN Head: normocephalic, atraumatic Eyes: conjunctiva non-injected, anicteric ENT: normal inspection external ears, nose, mucous membranes moist Neck: supple, trachea midline Lungs: clear, no respiratory distress, no wheezing/rhonchi/rales CV: RRR, no murmur, no pretibial edema Abd: normal BS, soft, non-tender Ext: no cyanosis, no calf tenderness Neuro: A&O x 3, no focal deficits noted, normal affect Skin: warm, dry Principal Diagnosis Hypertensive urgency Chest pain, rule out ACS Discharge Exam General: no distress, WDWN Head: normocephalic, atraumatic Eyes: conjunctiva non-injected, anicteric ENT: normal inspection external ears, nose, mucous membranes moist Neck: supple, trachea midline Lungs: clear, no respiratory distress, no wheezing/rhonchi/rales CV: RRR, no murmur, no pretibial edema Abd: normal BS, soft, non-tender Ext: no cyanosis, no calf tenderness Neuro: A&O x 3, no focal deficits noted, normal affect Skin: warm, dry Discharge Data Allergies Allergy/AdvReac Type Severity Reaction Status Date / Time No Known Allergies Allergy Verified 10/08/24 16:51 Consultations 10/08/24 16:27 ED Decision to Admit Stat 10/08/24 20:03 Consult Cardiology Routine Hospital Course (1) Chest pain: Per prior attending with addendum: Patient is 69 year old male with PMH esophagitis, Yepez's esophagus presented to ER with c/o exertional CP x 6 days. Had chest pressure with walking in to ER today, resolved with rest after approximately 10 minutes In ER BP noted to be elevated at 213/104. Has trended down to SBP in 160s without treatment Initial troponin negative. Initial EKG sinus rhythm, PVCs, no acute ST elevation CXR: no acute cardiopulmonary findings R/O ACS. DDx: hypertensive emergency/urgency, esophageal spasm. Risk factors: tobacco use Pt denies any current CP, SOB Monitor Vitals Repeat EKG in am Will trend troponin Echo Lipid panel in am In ER given aspirin 324mg Will start daily aspirin Nitro prn CP and repeat EKG for CP (2) Hypertensive urgency: In ER BP noted to be elevated at 213/104. Has trended down to SBP in 160s without treatment hypertensive urgency. Denies any current CP, SOB, GONZALEZ, dizziness. possible underlying undiagnosed hypertension, ACS r/o as above Monitor BP, may need to add BP agent (3) CKD (chronic kidney disease), stage III: Cr: 1.48. Baseline appears 1.4 Monitor renal functions, avoid nephrotoxic agents when able (4) Tobacco use: Has cut back to 1/2ppd Denies nicotine patch Smoking cessation encouraged (5) Barretts esophagus: History esophagitis and Yepez's esophagus on EGD and biopsy in 2019 Patient no longer taking PPI DVT Prophylaxis Heparin SQ Admit telemetry DNR/DNI as per discussion with pt Has not seen PCP for years. Previously followed with Dr Nuñez Pt was seen and care coordinated with Dr Everett. See addendum I spent a total of 68 minutes reviewing notes, outpatient records, labs, medication, coordinating, documenting and providing care for this patient excluding time spent in the performance of separately billed services. Plan Addendum 10/09/2024: Patient was seen and examined at bedside as a follow-up of hypertensive urgency and chest pain rule out ACS. Troponin x 3 negative, EKG without acute ST or T changes, echo with normal LV systolic function. Car diology evaluated, plan for outpatient stress test. Patient to return back to hospital if he has further chest pain. Coreg and amlodipine added for blood pressure management. Patient to follow-up with PCP within a week time for ongoing monitoring. Aspirin and statin added. blood pressure has been better controlled in hospital and patient denies any further chest pain. Patient is being discharged to home with following instruction at the point of discharge Follow-up with your primary care physician within a week time and likely you will need labs CBC/CMP/magnesium/phosphorus. It is very important that you visit your PCP office within a week time. You were evaluated for chest pain and high blood pressure. Cardiology evaluated you. Medications has been added. Maintain low-sodium diet [less than 2 g/day], heart healthy diet. Follow-up with cardiology in 2 to 4 weeks time upon discharge. If you have ongoing chest pain, you need to report back to emergency. Take your medications as prescribed. Please make sure that you are able to get your medications today by calling your pharmacy before you leave the hospital so that your treatment continuity is not broken. By CMS guidelines, a determination that the admission or continued stay is not medically necessary has been made by a member of the Utilization Review committee and a physician for this hospital stay. Therefore, a Code 44 will be completed and the inpatient admission will be changed to outpatient. Home Health Attestation I certify that this patient is under my care and that I, or a physicians senior underwriting assistant working with me, had a face to-face encounter that meets the home health [id number] encounter requirements with this patient. The encounter with the patient was in whole, or in part, for the following medical condition, which is the primary reason for home health care (list medical condition): I certify that, based on my findings, the following services are medically necessary home health services: My clinical findings support the need for the above services because: Further, I certify that my clinical findings support that this patient is homebound (i.e. absences from home require considerable and taxing effort and are for medical reasons or yazidism services or infrequently or of short duration when for other reasons) because: Certification for Home Health Services: Based on the above findings, I certify that this patient is confined to the home and needs intermittent fdc care, physical therapy and/or speech therapy or continues to need occupational therapy. The patient is under my care, and I have initiated the establishment of the plan of care. This patient will be followed by a physician who will periodically review the plan of care. Total Time Total Time Spent Total Time Spent (In Minutes): 40 Discharge Plan Discharge Items Patient Disposition: Home - Self-Care Reason For Visit: CP Discharge Diagnosis: Hypertensive urgency Chest pain, rule out ACS Activity: Resume your previous activity Non-emergency contact: Primary Care Provider Call non-emergency contact if: you have any medication questions and your sy mptoms worsen Follow-up/Referrals: Nieves Nuñez MD [Primary Care Provider] - Diet: Heart Healthy and Low Sodium (2gm) Addtl Attending Provider Instructions: Follow-up with your primary care physician within a week time and likely you will need labs CBC/CMP/magnesium/phosphorus. It is very important that you visit your PCP office within a week time. You were evaluated for chest pain and high blood pressure. Cardiology evaluated you. Medications has been added. Maintain low-sodium diet [less than 2 g/day], heart healthy diet. Follow-up with cardiology in 2 to 4 weeks time upon discharge. If you have ongoing chest pain, you need to report back to emergency. Take your medications as prescribed. Please make sure that you are able to get your medications today by calling your pharmacy before you leave the hospital so that your treatment continuity is not broken. Pending Studies at Discharge: No Stand-Alone Forms: My [place], Smoking Cessation Medications and DC Order Prescriptions: New carvedilol 3.125 mg Tablet 3.125 mg PO BIDM Qty: 60 0RF nitroglycerin [Nitrostat] 0.4 mg Tablet, Sublingual 0.4 mg sublingual UD PRN (Reason: chest pain) Qty: 20 0RF rosuvastatin 10 mg Tablet 10 mg PO QAM Qty: 30 0RF aspirin 81 mg Tablet,Delayed Release (Dr/Ec) 81 mg PO DAILY Qty: 30 0RF amlodipine 5 mg tablet 5 mg PO DAILY Qty: 30 0RF Discharge Orders: Discharge Order (Routine); Ordered 10/09/24 Ordered By: Lisa Kapadia Admission Data Admit Date/Time: 10/08/24 17:37 Attending Provider: Lisa Kapadia Admit Provider: Damon Everett Primary Care Provider: Nieves Nuñez Other Providers: Damon Everett; Hafsa Le
--- NOTE | 2024-10-09 15:45 | Communication Note ---
Date of Service: October 09, 2024 By CMS guidelines, a determination that the admission or continued stay is not medically necessary has been made by a member of the UR committee and a physician for this hospital stay, therefore a Code 44 will be completed and the Inpatient admission will be changed to outpatient.
[2024-10-09 15:46] VITALS: BP 156/84; PULSE 65
== END 2024-10-09 16:08 | disposition home or self-care (01) ==
LOC: ED 13:57 → 2N 17:37 → INTOOBSV 17:37 → SUATTDRO 17:37 → 2N 19:37

== ENCOUNTER 2024-12-30 06:42 | Observation (INO) ==
--- NOTE | 2024-12-30 08:17 | History & Physical Bridge Note ---
Date of Service December 30, 2024 History & Physical Bridge Note I have examined the patient, reviewed the History & Physical and in the interval since the performance of the History & Physical I have noted the following changes of clinical significance: no changes noted
--- NOTE | 2024-12-30 08:19 | Pre Anesthesia Assessment ---
Date of Service December 30, 2024 Pre Sedation Assessment Vital Signs Temp Pulse Resp BP Pulse Ox O2 Del Method 12/30/24 07:04 36.6 C 69 17 149/76 H 98 Room Air Cardiovascular + regular rate and + regular rhythm + S1 normal and + S2 normal; no murmur + femoral pulses present and + radial pulses present; no JVD no edema Respiratory + respiratory effort normal; no respiratory distress no crackles, no rales, no rhonchi and no wheezes Pre-Sedation Airway Assessment Smoking Status: Current every day smoker Hx Sleep Apnea: No Short, Thick Neck: No Thyromental Distance: > or= 3.5 Finger Breadths Oral Cavity: + WNL Mallampati Class: III ASA: ASA3 NPO Status Date of Last Intake of Fluids: 12/29/24 Time of Last Intake of Fluids: 20:00 Date of Last Intake of Solid Food: 12/29/24 Time of Last Intake of Solid Foods: 20:00 Procedure Planning Contraindications for Sedation: none Current Medications Reviewed: Yes Notes The planned sedation has been discussed with the patient. Informed Consent was obtained. I have identified the patient, determined the appropriateness of sedation and have assessed the patient immediately prior to the procedure. All medicine(s) and interventions are by my order.
--- OUTSIDE RECORDS SUMMARY | 2024-12-30 08:32 | External Medical Summary | Summary of Care ---
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 Name Role Phone Alessia Lorenzo MD Primary Care Pr ovider Reason for Visit * Reason Comments Follow Up Encounter Details Date Type Department Care Team ([facility] st Contact Info) Description 12/20/2024 11:30 AM EDT Office Visit Cardiology, [facility] [address] [facility] [place] [id number] Jenna Rosado PA-C [address] [facility] [place] [id number] Stable angina (HCC)*; Chest pain, unspecified type; BRANHAM (dyspnea on exertion); HTN, goal below 130/80; Dyslipidemia, goal LDL below 70; Tobacco use Allergies No known active allergiesdocumented as of this encounter (statuses as of 12/20/2024) Medications Carvedilol 3.125 MG Oral Tablet (Coreg)Indications: Hypertension goal BP (blood pressure) < 140/90 Take 1 Tablet by mouth 2 times a day with morning and evening meals. 180 Tablet 1 5 Active Rosuvastatin Calcium 10 MG Oral Tablet (Crestor)Indication s:Mixed hyperlipidemia Take 1 Tablet by mouth in the morning. 90 Tablet 1 5 Active Nitroglycerin 0.4 MG Sublingual Tablet Sublingual (Nitrostat) Place 1 Tablet under the tongue every 5 minutes as needed for Pain, Chest. 25 Tablet 2 5 Active hydrOXYzine HCl 25 MG Oral Tablet Take 1 Tablet by mouth at bedtime. 40 Tablet 2 5 Active amLODIPine Besylate 10 MG Oral Tablet (Norvasc)Indication s:Hypertension goal BP (blood pressure) < 140/90 Take 1 Tablet by mouth in the morning. 90 Tablet 1 5 Active Aspirin 81 MG Oral Tablet Delayed Release Take 1 Tablet by mouth in the morning. 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 Recommend follow up in 12 months due to smoking. Tobacco use disorder 11/10/2018 documented as of this encounter (statuses as of 12/20/2024) Resolved Problems Problem Noted Date Diagnosed Date Resolved Date Kidney disease, chronic, sta ge III (GFR 30-59 ml/min) 10/19/2019 08/24/2020 Overview: Per CKD protocol documented as of this encounter (statuses as of 12/20/2024) Social History Tobacco Use Types Packs/Day Years Used Date Smoking Tobacco: Every Day Cigarettes 0.3 40 Smokeless Tobacco: Never Alcohol Use Standard Drinks/Week Comments No 0 (1 standard drink = 0.6 oz pur e alcohol) AUDIT-C Answer Date Recorded Frequency of Alcohol Consumption Never 11/10/2018 Average Number of Drinks Not on file 019 Frequency of Binge Drinking Not on file 10/14 PHQ-2 Answer Date Recorded PHQ-2 Score 0 06/20/2020 Hunger Vital Sign Answer Date Recorded Within the past 12 months, y ou worried that your food would run out before you got the money to buy more. Never true 11/30/19 25 Within the past 12 months, t he food you bought just didn't last and you didn't have money to get more. Never true 11/30/2024 Childcare Answer Date Recorded Do you feel overwhelmed with taking care of a child, family member or friend? No 11/30/2024 Does your family need help f inding childcare? (Household - for ages 0-17 years) Not on file 11/30/2024 Clothing Answer Date Recorded Have you been unable to get clothing when it was really needed? No 11/30/2024 Is your family able to get c lothes or diapers when needed? (Household - for ages 0-17 years) Not on file 11/30/2024 Personal Safety Answer Date Recorded Do you feel unsafe or have concerns for your saf ety? No 11/30/2024 Do you have concerns for you r family's safety? (Household - for ages 0-17 years) Not on file 11/30/2024 Utilities Answer Date Recorded Do you have trouble paying y our heating, water, or electric bill? No 11/30/2024 Is your family able to pay t he heat, water, or electric bill? (Household - for ages 0-17 years) Not on file 11/30/2024 Does your family have access to good internet? (Household - for ages 0-17 years) Not on file 11/30/2024 Employment Status Answer Date Recorded Are you unemployed or without regular income? No 11/30/2024 Does the household have a re gular source of income? (Household - for ages 0-17 years) Not on file 11/30/2024 Social Connections Answer Date Recorded How often do you feel lonely or isolated from those around you? Sometimes 11/30/2024 Financial Resource Strain Answer Date R ecorded Do you have any trouble payi ng for your medications, or do you think you might in the future? Yes 11/30/2024 Does your family have troubl e paying for medicine? (Household - for ages 0-17 years) Not on file 11/30/2024 Transportation Needs Answer Date Record ed Do you have trouble getting a ride to medical visits or work? (Adult - for ages 18 years and over) Not on file 11/30/2024 Does your family have a hard time getting a ride to doctors visits? (Household - for ages 0-17 years) Not on file 11/30/2024 Has lack of transportation k ept you from medical appointments, meetings, work, or from getting things needed for daily living? Check all that apply. No 11/30/2024 Do you (or your family) have trouble finding or paying for a ride (transportation)? (Household - for ages 0-17 years) Not on file 11/30/2024 Housing Stability Answer Date Recorded Do you currently live in a s helter or have no steady place to sleep at night? No 11/30/2024 Do you think you are at risk of becoming homeless? (Adult - for ages 18 years and over) Not on file 11/30/2024 Does your family worry about paying for your home or becoming homeless? (Household - for ages 0-17 years) Not on file 0 11/30/2024 Are you homeless or worried that you might be in the future? No 11/30/2024 Are you (or your family) genevieve eless or worried that you might be in the future? (Household - for ages 0-17 years) Not on file Food Insecurity Answer Date Recorded Within the past 12 months, y ou worried that your food would run out before you got the money to buy more. Never true 11/30/19 25 Within the past 12 months, t he food you bought just didn't last and you didn't have money to get more. Never true 11/30/2024 Do you need food for this week? No 11/30/2024 Sex and Gender Information Value Date Recorded Sex Assigned at Male 11/30/2024 1:10 PM EST Legal Sex Male 5:50 AM EST Gender Identity Male 11/30/2024 1:10 PM EST Sexual Orientation Straight 11/30/2024 1: 10 PM EST documented as of this encounter Last Filed Vital Signs Vital Sign Reading Time Taken Comments Blood Pressure 138/78 12/20/2024 11:10 AM EDT Pulse 66 12/20/2024 11:10 AM EDT Temperature - - Respiratory Rate - - Oxygen Saturation - - Inhaled Oxygen Concentration - - Weight 102.1 kg (225 lb) 12/20/2024 11:10 AM EDT Height - - Body Mass Index 33.23 12/06/2024 10:58 AM EST documented in this encounter Progress Notes * Jenna Rosado PA-C - 12/20/2024 11:13 AM EDT Images from the original note were not included. [facility] [place], [facility] New Cardiology Patient 12/20/2024 CC: abnormal stress test History of Present Illness: Mukund Camacho is a 69 year old male with past medical history of HTN, dyslipidemia, tobacco use, Yepez's esophagus, who presents as a new patient, referred by PCP. States in September he was out shoveling snow when he developed sudden onset of chest pressure, did not improve so called PCP office, who advised him to go to ED. Was admitted to [facility] 10/08-10/09/24, troponin negative x3, EKG without acute ischemic changes. BP elevated on arrival > 200/100. Echo with normal LVEF. Cardiology consulted and recommended outpatient stress test. Noted to have chest discomfort during nuclear stress test similar to what brought him to ED, concern for balanced ischemia. Notes since then he has been having chest discomfort with exertion, almost daily, improved when taking nitro and resting. Chest discomfort can occur with minimal exertion, such as walking to the mailbox. Associated shortness of breath. Also notes his blood pressure is high initially, improves with nitro, has wrist cuff. Denies lightheadedness, syncope. New mild edema in lower extremities. Smoking 0.5 ppd, started smoking at age 12. Denies alcohol and illicit drug use. Compliant with allmedications, was taking aspirin, but was stopped by PCP, unsure why. Family history: Mother- [place] in her 50s REVIEW OF SYSTEMS: See HPI for pertinent positives. All others negative other than those noted in the HPI. CONSTITUTIONAL: No change in weight, No weakness, No fatigue and No fevers, No sweats or chills. PULMONARY: No cough, sputum, or hemoptysis, No wheezing, No shortness or breath and No recent change in breathing. CARDIOVASCULAR: + chest pain, No dyspnea on exertion, No edema, No palpitations and No syncope. GASTROINTESTINAL: No abdominal pain, No change in bowel habits, No significant heartburn, No nausea, No vomiting, No diarrhea, No constipation, No blood in stools or black tarry stools. No dysphagia. HEMATOLOGIC: No abnormal bleeding and No bruising. NEUROLOGICAL: Normal balance, No headaches and No weakness. Past Medical History: Patient Active Problem List Diagnosis Tobacco use disorder Lung nodule < 6cm on CT Yepez's esophagus without dysplasia Esophageal spasm Anxiety Adjustment insomnia Dysfunction of both eustachian tubes Chronic maxillary sinusitis Deviated septum Mixed hyperlipidemia Lipoma of back Stage 3a chronic kidney disease Past Surgical History: Procedure Laterality Date EGD, FLEXIBLE, DIAGNOSTIC 11/19/2018 Barretts, reflux esophagitis, repeat 1 yr/[facility] REMOVAL OF APPENDIX age 9 Family History: Family History Problem Relation Name Age of Onset Stroke Mother Heart attack Mother Diabetes Mother Other (renal failure) Mother Breast Cancer Sister No Known Problems Brother (Half) Social History: Social History Socioeconomic History Marital status: Single Spouse name: Not on file Number of children: Not on file Years of education: Not on file Highest education level: Not on file Occupational History Not on file Tobacco Use Smoking status: Every Day Current packs/day: 0.25 Average packs/day: 0.3 packs/day for 40.0 years (10.0 ttl pk-yrs) Types: Cigarettes Smokeless tobacco: Never Substance and Sexual Activity Alcohol use: No Drug use: Not on file Sexual activity: Not on file Other Topics Concern Not on file Social History Narrative Not on file Social Needs Financial Resource Strain: High Risk (11/30/2024) Financial Resource Strain Do you have any trouble paying for your medications, or do you think you might in the future? (Adult - for ages 18 years and over): Yes Does your family have trouble paying for medicine? (Household - for ages 0-17 years): Not on file Food Insecurity: No Food Insecurity (11/30/2024) Food Insecurity Worried About Running Out of Food in the Last Year: Never true Ran Out of Food in the Last Year: Never true Do you need food for this week? (Adult - for ages 18 years and over): No Transportation Needs: No Transportation Needs (11/30/2024) Transportation Needs Do you have trouble getting a ride to medical visits or work? (Adult - for ages 18 years and over):Not on file Does your family have a hard time getting a ride to doctors visits? (Household - for ages 0-17 years): Not on file Has lack of transportation kept you from medical appointments, meetings, work, or from getting things needed for daily living? Check all that apply. (Adult - for ages 18 years and over): No Do you (or your family) have trouble finding or paying for a ride (transportation)? (Household - for ages 0-17 years): Not on file Social Connections: Socially Integrated (11/30/2024) Social Connections How often do you feel lonely or isolated from those around you? (Adult - for ages 18 years and over): Sometimes Housing Stability: Low Risk (11/30/2024) Housing Stability Do you currently live in a snf or have no steady place to sleep at night? (Adult - for ages 18 years and over): No Do you think you are at risk of becoming homeless? (Adult - for ages 18 years and over): Not on file Does your family worry about paying for your home or becoming homeless? (Household - for ages 0-17 years): Not on file Are you homeless or worried that you might be in the future? (Adult - for ages 18 years and over): No Are you (or your family) homeless or worried that you might be in the future? (Household - for ages0-17 years): Not on file Allergies: Patient has no known allergies. Medications: Current Outpatient Medications Medication Sig Dispense Refill Carvedilol 3.125 MG Oral Tablet (Coreg) Take 1 Tablet by mouth 2 times a day with morning and evening meals. 180 Tablet 1 Rosuvastatin Calcium 10 MG Oral Tablet (Crestor) Take 1 Tablet by mouth in the morning. 90 Tablet 1 Nitroglycerin 0.4 MG Sublingual Tablet Sublingual (Nitrostat) Place 1 Tablet under the tongue every5 minutes as needed for Pain, Chest. 25 Tablet 2 hydrOXYzine HCl 25 MG Oral Tablet Take 1 Tablet by mouth at bedtime. 40 Tablet 2 amLODIPine Besylate 10 MG Oral Tablet (Norvasc) Take 1 Tablet by mouth in the morning. 90 Tablet 1 No current facility-administered medications for this visit. PHYSICAL EXAMINATION: BP 138/78 | Wt 102.1 kg (225 lb) | BMI 33.23 kg/m | BSA 2.23 m Wt Readings from Last 3 Encounters: 12/20/24 102.1 kg (225 lb) 12/06/24 102.2 kg (225 lb 6.4 oz) 10/15/24 101.1 kg (222 lb 12.8 oz) General: No acute distress. A+Ox3. HEENT: Normocephalic. Atraumatic. PERRL. EOMI. Conjunctiva and sclera clear. NECK: No carotid bruits. No JVD. Carotid upstrokes are brisk. Heart: RRR. S1 and S2 noted. No murmur. No rubs or gallops. PMI non displaced. Lungs: Clear to auscultation. No wheezes.No rhonchi. No rales. Abdomen: Normal bowel sounds. Soft. Nontender. No masses or organomegaly. No abdominal bruits. Extremities: No edema. No clubbing or cyanosis. Pulses: radial=2/4 NEURO: No focal deficits. PSYCH: Appropriate affect and insight. DATA Labs & Imaging Reviewed Below: EKG 12/20/24 NSR, 63 bpm Nuclear Stress Test 11/29/24 The combined low intensity exercise/pharmacologic myocardial perfusion imaging study revealed normal stress and resting perfusion without suggestion of ischemia. The stress EKG response is negative for ischemia. The patient described 5/10 intensity chest discomfort that was similar in quality to his recent presenting symptoms raises concerns for ischemic heart disease in a pattern of balanced ischemia. The blood pressure response to stress was normal. The calculated left ventricular ejection fraction= 74%. Gated SPECT images reveals normal myocardial thickening and wall motion. Echo 10/09/24 ([facility]) IMPRESSION: 69 year old male Chest pain Dyspnea on exertion Abnormal nuclear stress test HTN Dyslipidemia Tobacco use RECOMMENDATIONS/PLAN: - continues to have chest pain with exertion, relieved with sublingual nitro - nuclear stress test without ischemia, but had chest discomfort with symptoms concerning for ischemic heart disease in a pattern of balanced ischemia - discussed case with Dr. Hanna, due to continued symptoms concerning for stable angina and abnormal nuclear stress test, recommend further ischemic workup with cardiac catheterization - discussed risks and benefits of cardiac catheterization, he is agreeable to proceed, prefers to be set up at [facility] - restart aspirin 81 mg daily - continue carvedilol, amlodipine, rosuvastatin - discussed smoking cessation, encouraged to quit JIMMIE Disposition: F/u after cardiac cath The patient agrees to the above plan and will call with additional questions or concerns. All questions were answered to the patients satisfaction. ER with all emergencies advised. Jenna Rosado PA-C Cardiology, [address] [place] [address] I spent a total of 45 minutes on the date of service in preparation, delivery, and documentation ofthe care provided to Mukund Camacho excluding any time spent in the performance of separately billedservices. This chart was completed in part utilizing [employer] Speech Voice Recognition Software. Grammatical errors, random word insertions, prounoun errors, and incomplete sentences are an occasional consequence of this system due to software limitations, ambient noise, and hardware issues. Any formal questions or concerns about the content, text, or information contained within the body of this dictation should be directly addressed to the provider for clarification. documented in this encounter Procedure Notes * Rai Hanna MD - 12/20/2024 12:09 PM EDTAssociated Order(s): EKG REASON FOR STUDY: pre cath;pre cath CONCLUSIONS: Normal sinus rhythm Normal ECG When compared with ECG of 15-Oct-2024 14:17, Criteria for Septal infarct are no longer Present Ventricular Rate: 63 Atrial Rate: 63 UT Interval: 144 QRS Duration: 86 QT/QTc: 402/411 ms P-R-T Bock: 15 : 8 : 5 degrees documented in this encounter Nursing Notes * Anitra Sharma CMA - 12/20/2024 11:07 AM EDT Examination Room: 3 Name: Mukund Camacho Date of : (1955) Reason for Visit: new pt Interim Hospitalization(s): October 09 [facility] Problems/Concerns: denied Chest Pain/SOB: denied [facility] is a way you can talk to your provider online through e-mail. Would you like to sign up? I can activate it for you? ALREADY ACTIVE Patient was instructed to not get up on the exam table until directed and assisted by their provider; patient is to remain seated in the chair/ wheelchair/ exam table for fall prevention and safety reasons. Patient is aware to have assistance to step down off exam table with personnel. Patient voiced full comprehension of instructions. documented in this encounter Miscellaneous Notes * Result Encounter Note - Jenna Rosado PA-C - 12/20/2024 3:40 PM EDT Normal chest x-ray. documented in this encounter Plan of Treatment Upcoming Encounters Date Type Department Care Team (Late st Contact Info) Description 03/08/2025 8:00 AM EDT Office Visit Family Medicine [address] [place] [phone] Alessia Lorenzo MD [address] [place] [address] [place] [phone] Scheduled Orders Name Type Priority Associated Diagnoses Orde r Schedule CARDIAC CATH-CARDIOLOGY ONLY Procedures Routine Stable angina (HCC) Chest pain, unspecified type BRANHAM (dyspnea on exertion) HTN, goal below 130/80 Dyslipidemia, goal LDL below 70 Tobacco use Ordered: 12/20/2024 Health Maintenance Due Date Last Done Comments Albumin/Creatinine Ratio 1971 DTap/Tdap Vaccines (1 - Tdap) 1972 Pneumococcal Vaccine: 50+ Years (1 of 2 - PCV) 1972 Cologuard 1998 Colonoscopy 1998 Colorectal Cancer Screening 1998 Fecal Occult Blood Test 1998 Sigmoidoscopy 1998 Zoster Vaccines (1 of 2) 2003 Adult Wellness Visit 2019 Depression Screening 06/20/2021 06/20/2020 Yepez's Esophagus Surveilance 11/19/2021 11/19/2018 COVID-19 Vaccine ( season) 2024 09/12/2021, 02/22/2021, 01/23/2021 Influenza Vaccine (FLU shot) (#1) 2024 Lipid Panel 10/15/2024 10/15/2019, 01/06/2019 GFR 06/22/2025 12/20/2024, 11/14, 10/20/2024, Additional history exists CKD PHOS USE SMARTSET 70748 10/20/2025 10/20/2024 CKD HGB USE SMARTSET 23777 12/20/202512/20, 12/20/2024, 12/08/2024, Additional history exists AAA Screening Completed 01/11/2019 HPV (Gardasil) Vaccine Aged Out No lo nger eligible based on patient's age to complete this topic Hepatitis B Vaccine Aged Out No longe r eligible based on patient's age to complete this topic MENINGOCOCCAL (MENACTRA/MENVEO) Aged Out No longer eligible based on patient's age to complete this topic Meningitis B Vaccine (Bexsero/Trumemba) Aged Out No longer eligible based on patient's age to complete this topic documented as of this encounter Medical Devices Not on filedocumented as of this encounter Procedures Procedure Name Priority Date/Time Associated Diagnosis Comments XR CHEST 2 VIEWS Routine 12/20/2024 12:4 6 PM EDT Stable angina (HCC) Chest pain, unspecified type BRANHAM (dyspnea on exertion) HTN, goal below 130/80 Dyslipidemia, goal LDL below 70 Tobacco use UT ECG ROUTINE ECG W/LEAST 12 LDS W/I&R Routine 12/20/2024 12:09 PM EDT Stable angina (HCC) Chest pain, unspecified type BRANHAM (dyspnea on exertion) HTN, goal below 130/80 Dyslipidemia, goal LDL below 70 Tobacco use documented in this encounter Results * XR CHEST 2 VIEWS (12/20/2024 12:46 PM EDT) Anatomical Region Laterality Modality Chest Computed Radiogr aphy 12/20/2024 1:39 PM EDT Impressions 12/20/2024 1:37 PM EDT IMPRESSION No evidence of acute cardiopulmonary disease. Narrative 12/20/2024 1:37 PM EDT EXAM XR CHEST 2 VIEWS-12/20/2024 12:46 pm HISTORY Preoperative COMPARISON None TECHNIQUE PA and lateral views of the chest are examined. FINDINGS The lungs are clear. There is no pleural effusion. The pulmonary vasculature and cardiomediastinal silhouette are within normal limits. No acute osseous finding. Procedure Note Vamsi Mccrary MD - 12/20/2024 EXAM XR CHEST 2 VIEWS-12/20/2024 12:46 pm HISTORY Preoperative COMPARISON None TECHNIQUE PA and lateral views of the chest are examined. FINDINGS The lungs are clear. There is no pleural effusion. The pulmonaryvasculature and cardiomediastinal silhouette are within normal limits. Noacute osseous finding. IMPRESSION IMPRESSION No evidence of acute cardiopulmonary disease. Jenna Rosado PA-C RADIOLOGY (RAD GENERAL) Final Result * (ABNORMAL) BASIC METABOLIC PANEL (12/20/2024 12:17 PM EDT) BUN 19 6 - 20 mg/dL 12/20/2024 3:30 PM EDT [facility] 56- CREATININE 1.3(H) 0.6 - 1.2 mg/dL 12/20/2024 3:30 PM EDT [facility] 56- EGFR 57(L) >=60 mL/min 12/20/2024 3:30 PM EDT [facility] 56- Comment:eGFR is calculated b ased on the CKD-EPI 2020 equation. SODIUM 141 135 - 146 mmol/L 12/20/2024 3:30 PM EDT [facility] 56- POTASSIUM 4.7 3.5 - 5.1 mmol/L 12/20/2024 3:30 PM EDT [facility] 56- CHLORIDE 105 98 - 107 mmol/L 12/20/2024 3:30 PM EDT [facility] 56- CO2 27 22 - 32 mmol/L 12/20/2024 3:30 PM EDT [facility] 56- ANION GAP 9 7 - 15 mmol/L 12/20/2024 3:30 PM EDT [place] [address]- GLUCOSE 87 70 - 120 mg/dL 12/20/2024 3:30 PM EDT [facility] 56- CALCIUM 9.6 8.4 - 10.2 mg/dL 12/20/2024 3:30 PM EDT [facility] 56-02 Blood Venous blood specimen / Unknown Venipuncture / Unknown 12/20/2024 12:17 PM EDT 12/20/2024 12:17 PM EDT eJnna HAIRSTON-Ton LAB BLOOD ORDERABLES Fi nal Result [facility] 56-[address] [place] [address] * (ABNORMAL) APTT (12/20/2024 12:17 PM EDT) aPTT 40(H) 21 - 38 seconds 12/20/2024 12:44 PM EDT [facility]10 Blood Venous blood specimen / Unknown Venipuncture / Unknown 12/20/2024 12:17 PM EDT 12/20/2024 12:17 PM EDT Narrative [facility]-10 - 12/20/2024 12:44 PM EDT Anticoagulation may affect testing. Refer to My Own Med Test Catalog for a list of effects. Jenna HAIRSTON-Ton LAB BLOOD ORDERABLES Fi nal Result [facility]-[address] [place] [address] * PT INR (12/20/2024 12:17 PM EDT) Prothrombin Time 14.7 11.6 - 15.2 seconds 12/20/2024 12:43 PM EDT [facility]-10 INR 1.1 0.8 - 1.2 12/20/2024 12:43 PM EDT [facility] 57-10 Blood Venous blood specimen / Unknown Venipuncture / Unknown 12/20/2024 12:17 PM EDT 12/20/2024 12:17 PM EDT Narrative [facility] [place] 57-10 - 12/20/2024 12:43 PM EDT Warfarin Therapy INR: 2.0-3.0 conventional anticoagulation INR: 2.5-3.5 high intensity anticoagulation Jenna Rosado PA-C LAB BLOOD ORDERABLES Fi nal Result Performing Organization Address City/[facility] Co de Phone Number LABORATORY [facility]-[address] [place] [address] * EKG (12/20/2024 12:09 PM EDT) 12/20/2024 12:0 9 PM EDT Narrative Procedure Note Rai Hanna MD - 12/20/2024 12:09 PM EDT REASON FOR STUDY: pre cath;pre cath CONCLUSIONS: Normal sinus rhythm Normal ECG When compared with ECG of 15-Oct-2024 14:17, Criteria for Septal infarct are no longer Present Ventricular Rate: 63 Atrial Rate: 63 UT Interval: 144 QRS Duration: 86 QT/QTc: 402/411 ms P-R-T Bock: 15 : 8 : 5 degrees Jenna Rosado PA-C EKG Final R esult Performing Organization Address City/[facility] Co de Phone Number [facility] documented in this encounter Visit Diagnoses Diagnosis Stable angina (HCC)- Primary Other and unspecified angina pectoris Chest pain, unspecified type BRANHAM (dyspnea on exertion) Other dyspnea and respiratory abnormality HTN, goal below 130/80 Unspecified essential hypertension Dyslipidemia, goal LDL below 70 Other and unspecified hyperlipidemia Tobacco use Tobacco use disorder documented in this encounter Care Teams Blasting Clay Miner Relationship Specialty Start Date End Date Alessia Lorenzo MD [address] [place] [address] [place] [phone] PCP - General Family Medicine 11/08/24 documented as of this encounter"
--- OUTSIDE RECORDS SUMMARY | 2024-12-30 08:32 | External Medical Summary ---
Author Name Unknown Address Unknown Organization K0G:LABORATORY [facility] 57-10 - [address] [place] [address] Laboratory Report Ordering Provider Test Date Status REN ROSENBAUMET 12/20/2024 12:17:52 Final Warfarin Therapy
INR: 2 .0-3.0 conventional anticoagulation
INR: 2.5- 3.5 high intensity anticoagulation Observation Date Value Abnormality Reference (Units ) Status PT 12/20/2024 12:17:52 14.7 11.6-15.2 (seconds) Final INR 12/20/2024 12:17:52 1.1 0.8-1.2 Final Performing Location LABORATORY [facility] 57-1 0 - [address] [place] [address]
--- OUTSIDE RECORDS SUMMARY | 2024-12-30 08:32 | External Medical Summary ---
Author Name Unknown Address Unknown Organization K0G:LABORATORY [facility] 57-10 - [address] [place] [address] Laboratory Report Ordering Provider Test Date Status ELENITA ROSENBAUM 12/20/2024 12:17:52 Final Observation Date Value Abnormality Reference (Units ) Status WBC, Total 12/20/2024 12:17:52 8.39 4.00-10.8 0 (K/uL) Final RBC 12/20/2024 12:17:52 4.88 4.50-5.25 (M/uL) Final Hemoglobin 12/20/2024 12:17:52 14.9 14.0-16.8 (g/dL) Final HCT 12/20/2024 12:17:52 43.2 40.0-48.4 (%) Final MCV 12/20/2024 12:17:52 88.5 82.0-99.5 (fL) Final MCH 12/20/2024 12:17:52 30.5 27.0-34.0 (pg) Final MCHC 12/20/2024 12:17:52 34.5 32.0-36.0 (g/dL) Final RDW 12/20/2024 12:17:52 13.2 11.5-15.5 (%) Final Platelets 12/20/2024 12:17:52 195 140-400 (K /uL) Final MPV 12/20/2024 12:17:52 11.0 6.6-11.1 ( fL) Final Performing Location LABORATORY [facility] 57-1 0 - [address] [place] [address]
--- OUTSIDE RECORDS SUMMARY | 2024-12-30 08:32 | External Medical Summary ---
Author Name Unknown Address Unknown Organization K0G[facility] [address] [place] [address] Laboratory Report Ordering Provider Test Date Status ELENITA ROSENBAUM 12/20/2024 12:17:52 Final Anticoagulation may affect t esting. Refer to [facility] Test Catalog for a list of effects. Observation Date Value Abnormality Reference (Units ) Status aPTT panel - Platelet poor plasma 12/20/2024 12:17:52 40 Above high normal 21-38 (seconds) Final Performing Location LABORATORY [facility] MARC 57-1 0 - [address] [place] [address]
--- OUTSIDE RECORDS SUMMARY | 2024-12-30 08:32 | External Medical Summary ---
Author Name Unknown Address Unknown Organization K0G[facility] [address] [place] [address] Laboratory Report Ordering Provider Test Date Status ELENITA ROSENBAUM 12/20/2024 12:17:52 Final Observation Date Value Abnormality Reference (Units ) Status SYNC LEUKOCYTES IN BLOOD BY AUTOMATED COUNT 12/20/2024 12:17:52 8.39 4.00-10.80 (K/uL) Final Segs 12/20/2024 12:17:52 58.2 40.0-75.0 (%) Final Lymphs % 12/20/2024 12:17:52 28.7 18.0-42.0 (%) Final Monos 12/20/2024 12:17:52 10.8 1.0-11.0 (%) Final Eosinophils 12/20/2024 12:17:52 2.1 0.0-6.0 (%) Final Basos 12/20/2024 12:17:52 0.2 0.0-2.0 (%) Final Absolute Segs 12/20/2024 12:17:52 4.87 1.80-7.70 (K/uL) Final Lymphs, absolute 12/20/2024 12:17:52 2.41 1.00-4.80 (K/ul) Final Monos, Abs 12/20/2024 12:17:52 0.91 0.00-1.10 (K/uL) Final Eos, Abs 12/20/2024 12:17:52 0.18 0.00-0.70 (K/uL) Final Basos, Abs 12/20/2024 12:17:52 0.02 0.00-0.20 (K/uL) Final Performing Location LABORATORY [facility] MARC 57-1 0 - [address] [place] [address]
--- OUTSIDE RECORDS SUMMARY | 2024-12-30 08:32 | External Medical Summary | Summary of Care ---
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 180 Tablet 1 11/09/19 25 Active Rosuvastatin Calcium 10 MG Oral Tablet (Crestor)Indicati ons:Mixed hyperlipidemia Take 1 Tablet by mouth in the morning. 90 Tablet 1 11/09/19 25 Active Aspirin 81 MG Oral Tablet Delayed Release Take 1 Tablet by mouth in the morning. 10/09/20 24 025 Discontinued Nitroglycerin 0.4 MG Sublingual Tablet Sublingual (Nitrostat) Place 1 Tablet under the tongue every 5 minutes as needed for Pain, Chest. 10/09/20 24 025 Discontinued(Re fill) amLODIPine Besylate 5 MG Oral Tablet (Norvasc)Indicati ons:Hypertension goal BP (blood pressure) < 140/90 Take 1 Tablet by mouth in the morning. 90 Tablet 1 11/09/19 25 025 Discontinued(Re fill) documented as of this encounter (statuses as of 12/08/2024) Active Problems Problem Noted Date Diagnosed Date [...] as of this encounter (statuses as of 12/08/2024) Resolved Problems Problem Noted Date Diagnosed Date Resolved Date Kidney disease, chronic, sta ge III (GFR 30-59 ml/min) 10/19/2019 08/24/2020 Overview: Per CKD protocol documented as of this encounter (statuses as of 12/08/2024) Social History Tobacco Use Types Packs/Day Years [...] PM EST documented as of this encounter Progress Notes * Kwadwo Green, NICHOLE - 12/08/2024 9:04 AM EST Called and spoke with SO the 12/20/24 at 1130 with Jenna * Kwadwo Green OSA - 12/07/2024 9:21 AM EST Called patient, he accepted Friday12/17/24 at 1130 am with Mey Thank you. * Kwadwo Green OSA - 12/07/2024 8:15 AM EST Yuly, I rescheduled this patient to: NEW CARDIOLOGY at 11:30 AM (60 min)Arrive by 11:15 AM December Appointment Provider:Mey Jose CRNP in CARDIOLOGY [facility] Is this appropriate, we looked at the schedule for this week, and we have nothing. Andressa is fullfor image. Please advise, thank you. * Osmel Osullivan PA-C - 12/06/2024 8:04 PM EST Does patient need to be seen?: Yes Modality: Office visit Urgency: Within 3 days (urgent) Discussed care plan with patient or proxy?: Yes Communicated with patient on Date (mm/dd/yyyy): 12/06/2024 Needs to be seen THIS WEEK. ER with worsening symptoms. Osmel Osullivan PA-C Department of Cardiology * Maureen Dyer LPN - 12/06/2024 10:56 AM EST New Patient Triage What is the diagnosis/reason for referral?: Stable angina (HCC) [I20.89] - Primary Enter order ID here: Order [id number] Specialty specific documentation: Cardiology Structural Heart Discussed care plan with patient or proxy?: Yes jose Communicated with patient on Date (mm/dd/yyyy): 12/06/2024 at Time ([facility]): 10:54AM INFO FROM CARDIAC REFERRAL Dr Bland recommended consultation w/r/t recent stress test APPOINTMENT INFO: 04/18/2025 09:[address] [facility] Tucker Crisostomo, PCP/REFERRING November 29, 2024 11/29/24 5:10 PM Alessia Lorenzo MD routed this conversation to [facility] Specialty Scheduling Pool/[facility] Alessia Lorenzo MD 11/29/24 5:10 PM Note Received message from Dr Bland regarding recent stress test. Read as no ischemia, but there weresome things that weren't quite normal. He would like to see the patient for consultation. Entered referral. 11/29/24 5:11 PM Alessia Lorenzo MD routed this conversation to [facility] Scheduling Pool/[facility] November 30, 2024 Dania Morataya OSA PW 11/30/24 9:23 AM Note I spoke to patient and scheduled Cardiology appt for 04/18/25 @ 9:00 am w/ Dr. Crisostomo at [facility]. (Pt also placed on a cancellation list). He has questions regarding the need of this appt and results of the stress test. He was never notified. Could someone call patient? Thanks so much. PW 11/30/24 9:23 AM Dania Morataya OSA routed this conversation to [facility] Alessia Lorenzo MD Cattoi Seifert, Amanda Leslie, MD 11/30/24 9:28 AM Note The stress test was read as normal, but Dr Bland was concerned with the symptoms he had with themedication infusion and felt the patient would benefit from seeing Cardiology for follow up. Please let him know 11/30/24 9:28 AM Alessia Lorenzo MD routed this conversation to [facility] Nurse Pool/Class December 01, 2024 Mahnaz Espitia CMA SP 12/01/24 11:03 AM Note Called and advised pt of message below, states understanding and agreeable to referral EKG/ECHO/ZIO/CARDIAC TESTING Nuclear Stress Test 11/29/2024 LABS Results for orders placed or performed in visit on 10/20/24 CBC Result Value Ref Range WBC 9.22 4.00 - 10.80 K/uL RBC 5.05 4.50 - 5.25 M/uL HGB 14.8 14.0 - 16.8 g/dL HCT 45.2 40.0 - 48.4 % MCV 89.5 82.0 - 99.5 fL MCH 29.3 27.0 - 34.0 pg MCHC 32.7 32.0 - 36.0 g/dL RDW 12.5 11.5 - 15.5 % PLT 231 140 - 400 K/uL MPV 11.1 6.6 - 11.1 fL nRBCs 0 <=0 /100 WBCs COMPREHENSIVE METABOLIC PANEL Result Value Ref Range BUN 19 6 - 20 mg/dL CREATININE 1.4 (H) 0.6 - 1.2 mg/dL EGFR 55 (L) >=60 mL/min SODIUM 140 135 - 146 mmol/L POTASSIUM 5.0 3.5 - 5.1 mmol/L CHLORIDE 104 98 - 107 mmol/L CO2 27 22 - 32 mmol/L ANION GAP 9 7 - 15 mmol/L GLUCOSE 78 70 - 120 mg/dL Albumin 4.1 3.8 - 5.0 g/dL AST 20 10 - 50 U/L Alkaline Phosphatase 69 35 - 130 U/L Bilirubin, Total 0.5 <=1.2 mg/dL CALCIUM 9.4 8.4 - 10.2 mg/dL Protein 6.9 6.0 - 8.3 g/dL ALT 17 10 - 50 U/L MAGNESIUM Result Value Ref Range Magnesium 2.2 1.5 - 2.6 mg/dL PHOSPHORUS Result Value Ref Range Phosphorus 3.4 2.5 - 4.8 mg/dL MEDICATIONS amLODIPine Besylate 5 MG Oral Tablet (Norvasc) Carvedilol 3.125 MG Oral Tablet (Coreg) Rosuvastatin Calcium 10 MG Oral Tablet (Crestor) Aspirin 81 MG Oral Tablet Delayed Release Nitroglycerin 0.4 MG Sublingual Tablet Sublingual (Nitrostat) HOSPITALIZATIONS/CONSULTS Scanned under media 09/29/2025 [facility] documented in this encounter Plan of Treatment Upcoming Encounters Date Type Department Care Team (Late st Contact Info) Description 03/08/2025 8:00 AM EDT Office Visit Family Medicine [address] [place] [phone] Alessia Lorenzo MD [address] [place] [address] [place] [phone] Health Maintenance Due Date Last Done Comments Albumin/Creatinine Ratio 1971 DTap/Tdap Vaccines (1 - Tdap) 1972 Pneumococcal Vaccine: 50+ Years (1 of 2 - PCV) 1972 Cologuard 1998 Colonoscopy 1998 Colorectal Cancer Screening 1998 Fecal Occult Blood Test 1998 Sigmoidoscopy 1998 Zoster Vaccines (1 of 2) 2003 Adult Wellness Visit 2019 Depression Screening 06/20/2021 06/20/2020 Yepez's Esophagus Surveilance 11/19/2021 11/19/2018 COVID-19 Vaccine (2023-2 5 season) 2024 09/12/2021, 02/22/2021, 01/23/2021 Influenza Vaccine (FLU shot) (#1) 2024 Lipid Panel 10/15/2024 10/15/2019, 01/06/2019 GFR 04/19/2025 10/20/2024, 10/15/2019, 11/18/2018 CKD HGB USE SMARTSET 69649 10/20/202510/20, 11/18/2018 CKD PHOS USE SMARTSET 31910 10/20/2025 10/20/2024 AAA Screening Completed 01/11/2019 HPV (Gardasil) Vaccine Aged Out No lo nger eligible based on patient's age to complete this topic Hepatitis B Vaccine Aged Out No longe r eligible based on patient's age to complete this topic MENINGOCOCCAL (MENACTRA/MENVEO) Aged Out No longer eligible b ased on patient's age to complete this topic Meningitis B Vaccine (Bexsero/Trumemba) Aged Out No longer eligible b ased on patient's age to complete this topic documented as of this encounter Medical Devices Not on filedocumented as of this encounter Care Teams Asphalt Mixing Machine Operator Relationship Specialty Start Date End Date Alessia Lorenzo MD [address] [place] [address] [place] [phone] PCP - General Family Medicine 11/08/24 documented as of this encounter
--- OUTSIDE RECORDS SUMMARY | 2024-12-30 08:32 | External Medical Summary ---
Author Name Unknown Address Unknown Organization K01:LABORATORY [facility] - [address] [facility] [address] Laboratory Report Ordering Provider Test Date Status ROCCO GARCIA 12/08/2024 08:17:40 Final Observation Date Value Abnormality Reference (Units ) Status SYNC LEUKOCYTES IN BLOOD BY AUTOMATED COUNT 12/08/2024 08:17:40 7.11 4.00-10.80 (K/uL) Final Segs 12/08/2024 08:17:40 56.3 40.0-75.0 (%) Final Lymphs % 12/08/2024 08:17:40 28.7 18.0-42.0 (%) Final Monos 12/08/2024 08:17:40 12.0 Above high normal 1.0-11.0 (%) Final Eosinophils 12/08/2024 08:17:40 2.0 0.0-6.0 (%) Final Basos 12/08/2024 08:17:40 0.7 0.0-2.0 (%) Final Immature Granulocyte, Percent 12/08/2024 08:17:40 0.3 0.0-2.0 (%) Final Absolute Segs 12/08/2024 08:17:40 4.01 1.80-7.70 (K/uL) Final Lymphs, absolute 12/08/2024 08:17:40 2.04 1.00-4.80 (K/ul) Final Monos, Abs 12/08/2024 08:17:40 0.85 0.00-1.10 (K/uL) Final Eos, Abs 12/08/2024 08:17:40 0.14 0.00-0.70 (K/uL) Final Basos, Abs 12/08/2024 08:17:40 0.05 0.00-0.20 (K/uL) Final Immature Granulocytes, Number 12/08/2024 08:17:40 0.02 0.00-0.20 (K/uL) Final Performing Location LABORATORY [facility] - [address] [facility] [address]
--- OUTSIDE RECORDS SUMMARY | 2024-12-30 08:32 | External Medical Summary ---
Author Name Unknown Address Unknown Organization K01:LABORATORY [facility] - [address] [facility] [place] [address] Laboratory Report Ordering Provider Test Date Status ROCCO GARCIA SEIFERT 12/08/2024 08:17:40 Final Observation Date Value Abnormality Reference (Units ) Status TSH 12/08/2024 08:17:40 2.40 0.27-4.20 (uIU/mL) Final Performing Location LABORATORY [facility] - [address] [place] [address]
--- OUTSIDE RECORDS SUMMARY | 2024-12-30 08:32 | External Medical Summary | Summary of Care ---
Author Name Unknown Organization [facility] Address [address] [place] [address] Phone [phone] Care Team Providers Care Chemist Physical Name Role Phone Alessia Lorenzo MD Primary Care Pr ovider Reason for Visit * Reason Comments Outpatient Testing Encounter Details Date Type Department Care Team (Late st Contact Info) Description 12/20/2024 12:30 PM EDT Laboratory Laboratory, [facility] [address] [facility] [phone] [facility] [address] [place] [address] Pre-operative cardiovascular examination; Stable angina (HCC); Chest pain, unspecified type Allergies No known active allergiesdocumented as of [...] 11/30/2024 Does the household have a re lar source of income? (Household - for ages [...] PM EST documented as of this encounter Miscellaneous Notes * Result Encounter Note - Jenna Rosado PA-C - 12/20/2024 3:39 PM EDT Stable labs. documented in this encounter Plan of Treatment Upcoming Encounters Date Type Department Care Team (Late st Contact Info) Description 03/08/2025 8:00 AM EDT Office Visit Family Medicine [address] [place] [phone] Alessia Lorenzo MD [address] [place] [address] [place] [phone] Health Maintenance Due Date [...] Additional history exists CKD PHOS USE SMARTSET 69706 10/20/2025 10/20/2024 CKD HGB USE SMARTSET 88313 12/20/202512/20, 12/20/2024, 12/08/2024, Additional history exists AAA [...] Procedure Name Priority Date/Time Associated Diagnosis Comments DIFFERENTIAL, AUTOMATED Routine 12/20/2024 12:17 PM EDT Pre-operative cardiovascular examination BASIC METABOLIC PANEL Routine 12/20/2024 12:17 PM EDT Pre-operative cardiovascular examination CBC Routine 12/20/2024 12:17 PM EDT Pre-operative cardiovascular examination PT INR Routine 12/20/2024 12:17 PM EDT Pre-operative cardiovascular examination Stable angina (HCC) APTT Routine 12/20/2024 12:17 PM EDT Pre-operative cardiovascular examination Stable angina (HCC) Chest pain, unspecified type CBC Routine 12/20/2024 12:17 PM EDT Pre-operative cardiovascular examination documented in this encounter Results * DIFFERENTIAL, AUTOMATED (12/20/2024 12:17 PM EDT) WBC 8.39 4.00 - 10.80 K/uL 12/20/2024 12:25 PM EDT [facility]ORY [place] 57[facility]10 Neutrophils % 58.2 40.0 - 75.0 % 12/20/2024 12:25 PM EDT [facility] [place] 57[facility]10 Lymphocytes % 28.7 18.0 - 42.0 % 12/20/2024 12:25 PM EDT [facility] [place] [facility]10 Monocytes % 10.8 1.0 - 11.0 % 12/20/2024 12:25 PM EDT [facility] [place] [facility]10 Eosinophils % 2.1 0.0 - 6.0 % 12/20/2024 12:25 PM EDT [facility] [place] [facility]10 Basophils % 0.2 0.0 - 2.0 % 12/20/2024 12:25 PM EDT LABORATORY [place] 57-10 Absolute Neutrophils 4.87 1.80 - 7.70 K/uL 12/20/2024 12:25 PM EDT LABORATORY [place] 57-10 Absolute Lymphocytes 2.41 1.00 - 4.80 K/ul 12/20/2024 12:25 PM EDT LABORATORY [place] 5710 Absolute Monocytes 0.91 0.00 - 1.10 K/uL 12/20/2024 12:25 PM EDT LABORATORY [address] Absolute Eosinophils 0.18 0.00 - 0.70 K/uL 12/20/2024 12:25 PM EDT LABORATORY [place] 5710 Absolute Basophils 0.02 0.00 - 0.20 K/uL 12/20/2024 12:25 PM EDT LABORATORY [place] [address] Blood Venous blood specimen / Unknown Venipuncture / Unknown 12/20/2024 12:17 PM EDT 12/20/2024 12:17 PM EDT Jenna Rosado PA-C LAB BLOOD ORDERABLES Fi nal Result LABORATORY [place] [address] [address] [place] [address] * CBC (12/20/2024 12:17 PM EDT) WBC 8.39 4.00 - 10.80 K/uL 12/20/2024 12:25 PM EDT LABORATORY [place] [address] RBC 4.88 4.50 - 5.25 M/uL 12/20/2024 12:25 PM EDT LABORATORY [address] HGB 14.9 14.0 - 16.8 g/dL 12/20/2024 12:25 PM EDT LABORATORY [place] [address] HCT 43.2 40.0 - 48.4 % 12/20/2024 12:25 PM EDT LABORATORY [place] [address] MCV 88.5 82.0 - 99.5 fL 12/20/2024 12:25 PM EDT [facility] [place] 57[facility]10 MCH 30.5 27.0 - 34.0 pg 12/20/2024 12:25 PM EDT LABORATORY [place] 5710 MCHC 34.5 32.0 - 36.0 g/dL 12/20/2024 12:25 PM EDT LABORATORY [place] 5710 RDW 13.2 11.5 - 15.5 % 12/20/2024 12:25 PM EDT LABORATORY [address] PLT 195 140 - 400 K/uL 12/20/2024 12:25 PM EDT LABORATORY [place] [address] MPV 11.0 6.6 - 11.1 fL 12/20/2024 12:25 PM EDT LABORATORY [place] [address] Blood Venous blood specimen / Unknown Venipuncture / Unknown 12/20/2024 12:17 PM EDT 12/20/2024 12:17 PM EDT Jenna Rosado PA-C LAB BLOOD ORDERABLES Fi nal Result LABORATORY [place] [address] [address] [place] [address] * (ABNORMAL) BASIC METABOLIC PANEL (12/20/2024 12:17 PM EDT) BUN 19 6 - 20 mg/dL 12/20/2024 3:30 PM EDT [facility] 56- CREATININE 1.3(H) 0.6 - 1.2 mg/dL 12/20/2024 3:30 PM EDT [facility] 56- EGFR 57(L) >=60 mL/min 12/20/2024 3:30 PM EDT [facility] 56- Comment:eGFR is calculated b ased on the CKD-EPI 2020 equation. SODIUM 141 135 - 146 mmol/L 12/20/2024 3:30 PM EDT [facility] 56- POTASSIUM 4.7 3.5 - 5.1 mmol/L 12/20/2024 3:30 PM EDT [facility] 56- CHLORIDE 105 98 - 107 mmol/L 12/20/2024 3:30 PM EDT [facility] 56- CO2 27 22 - 32 mmol/L 12/20/2024 3:30 PM EDT [facility] 56-02 ANION GAP 9 7 - 15 mmol/L 12/20/2024 3:30 PM EDT [facility] 56-02 GLUCOSE 87 70 - 120 mg/dL 12/20/2024 3:30 PM EDT [facility] 56- CALCIUM 9.6 8.4 - 10.2 mg/dL 12/20/2024 3:30 PM EDT [facility] 56-02 Blood Venous blood specimen / Unknown Venipuncture / Unknown 12/20/2024 12:17 PM EDT 12/20/2024 12:17 PM EDT Jenna Rosado PA-C LAB BLOOD ORDERABLES Fi nal Result [facility] 56-[address] [place] [address] * (ABNORMAL) APTT (12/20/2024 12:17 PM EDT) aPTT 40(H) 21 - 38 seconds 12/20/2024 12:44 PM EDT [facility] Blood Venous blood specimen / Unknown Venipuncture / Unknown 12/20/2024 12:17 PM EDT 12/20/2024 12:17 PM EDT Narrative LABORATORY [place] 57-10 - 12/20/2024 12:44 PM EDT Anticoagulation may affect testing. Refer to [facility] Test Catalog for a list of effects. Jenna Rosado PA-C LAB BLOOD ORDERABLES Fi nal Result [facility] [address] [facility] [place] [address] * PT INR (12/20/2024 12:17 PM EDT) Prothrombin Time 14.7 11.6 - 15.2 seconds 12/20/2024 12:43 PM EDT LABORATORY [place] 57-10 INR 1.1 0.8 - 1.2 12/20/2024 12:43 PM EDT LABORATORY [facility] 57-10 Blood Venous blood specimen / Unknown Venipuncture / Unknown 12/20/2024 12:17 PM EDT 12/20/2024 12:17 PM EDT Narrative LABORATORY [place] 57-10 - 12/20/2024 12:43 PM EDT Warfarin Therapy INR: 2.0-3.0 conventional anticoagulation INR: 2.5-3.5 high intensity anticoagulation Jenna Rosado PA-C LAB BLOOD ORDERABLES Fi nal Result LABORATORY [place] 57-10 [address] [facility] [place] [address] documented in this encounter Visit Diagnoses Diagnosis Pre-operative cardiovascular examination Stable angina (HCC) Other and unspecified angina pectoris Chest pain, unspecified type documented in this encounter Care Teams Chemist Physical Relationship Specialty Start Date End Date Alessia Lorenzo MD [address] [place] [address] [place] [phone] PCP - General Family Medicine 11/08/24 documented as of this encounter
--- OUTSIDE RECORDS SUMMARY | 2024-12-30 08:32 | External Medical Summary | Summary of Care ---
Author Name Unknown Organization [facility] Address [address] [place] [address] Phone [phone] Care Team Providers Care Hamper Maker Machine Name Role Phone Alessia oLrenzo MD Primary Care Pr ovider Reason for Visit * Reason Onset Date Comments Referral 12/06/2024 Encounter Details Date Type Department Care Team (Late st Contact Info) Description 12/06/2024 New Patient Triage (ROUSTABOUT CREW PUSHER USE ONLY) Cardiology, [facility] [address] [place] [address] Isabella Thornton, MANUFACTURING DESIGN ENGINEER [address] [place] [address] Referral Allergies No known active allergiesdocumented as of this encounter (statuses as of 12/09/2024) Medications Carvedilol 3.125 MG Oral Tablet (Coreg)Indication [...] as of this encounter (statuses as of 12/09/2024) Active Problems Problem Noted Date Diagnosed Date [...] as of this encounter (statuses as of 12/09/2024) Resolved Problems Problem Noted Date Diagnosed Date Resolved Date Kidney disease, chronic, sta ge III (GFR 30-59 ml/min) 10/19/2019 08/24/2020 Overview: Per CKD protocol documented as of this encounter (statuses as of 12/09/2024) Social History Tobacco Use Types Packs/Day Years [...] Progress Notes * Kwadwo Green, NICHOLE - 12/09/2024 8:05 AM EST Patient has been scheduled, hold removed: NEW CARDIOLOGY at 11:30 AM (60 min)Arrive by 11:15 AM Friday December 20, 2024 Appointment Provider:Jenna Rosado PA-C in CARDIOLOGY [facility] * Yuly Morataya RN - 12/08/2024 3:19 PM EST Conversion complete for 12/20/24. Please schedule and remove hold. * Kwadwo Green OSA - 12/08/2024 9:04 AM EST Called and spoke with SO the 12/20/24 at 1130 with Jenna * Kwadwo Green OSA - 12/07/2024 9:21 AM EST Called patient, he accepted Friday12/17/24 at 1130 am with Mey Thank you. * Kwadwo Green OSA - 12/07/2024 8:15 AM EST Riya Emery rescheduled this patient to: NEW CARDIOLOGY at 11:30 AM (60 min)Arrive by 11:15 AM December Appointment Provider:Mey Jose CRNP in CARDIOLOGY [facility] Is this appropriate, we looked at the schedule for this week, and we have nothing. Andressa is fullfor image. Please advise, thank you. * Osmel Osullivan PA-C - 12/06/2024 8:04 PM EST Does patient need to be seen?: Yes Modality: Office visit Urgency: Within 3 days (urgent) Discussed care plan with patient or proxy?: Yes Communicated with patient on Date (mm/dd/savagey): 12/06/2024 Needs to be seen THIS WEEK. ER with worsening symptoms. Osmel Osullivan PA-C Department of Cardiology * Maureen Dyer LPN - 12/06/2024 10:56 AM EST New Patient Triage What is the diagnosis/reason for referral?: Stable angina (HCC) [I20.89] - Primary Enter order ID here: Order [id number] Specialty specific documentation: Cardiology Structural Heart Discussed care plan with patient or proxy?: Yes [email or web address] Communicated with patient on Date (/dd/yyyy): 12/06/2024 at Time ([facility]): 10:54AM INFO FROM CARDIAC REFERRAL Dr Bland recommended consultation w/r/t recent stress test APPOINTMENT INFO: 04/18/2025 09:00 AM Cardiology [facility] Tucker Crisostomo DO PCP/REFERRING November 29, 2024 11/29/24 5:10 PM Alessia Lorenzo MD routed this conversation to [place] [employer] [facility] Specialty Scheduling Pool/Class Alessia Lorenzo MD 11/29/24 5:10 PM Note Received message from Dr Bland regarding recent stress test. Read as no ischemia, but there weresome things that weren't quite normal. He would like to see the patient for consultation. Entered referral. 11/29/24 5:11 PM Alessia Lorenzo MD routed this conversation to [place] [employer] [facility] Specialty Scheduling Pool/Class November 30, 2024 Dania Morataya OSA PW 11/30/24 9:23 AM Note I spoke to patient and scheduled Cardiology appt for 04/18/25 @ 9:00 am w/ Dr. Crisostomo at [facility]. (Pt also placed on a cancellation list). He has questions regarding the need of this appt and results of the stress test. He was never notified. Could someone call patient? Thanks so much. PW 11/30/24 9:23 AM Dania Morataya OSA routed this conversation to [facility] Nurse Pool/Class Alessia Lorenzo MD Cattoi Seifert, Amanda Leslie, MD 11/30/24 9:28 AM Note The stress test was read as normal, but Dr Bland was concerned with the symptoms he had with themedication infusion and felt the patient would benefit from seeing Cardiology for follow up. Please let him know 11/30/24 9:28 AM Alessia Lorenzo MD routed this conversation to [facility] Nurse Pool/Class December 01, 2024 Mahnaz Espitia [...] Sublingual (Nitrostat) HOSPITALIZATIONS/CONSULTS Scanned under media 09/29/2025 [facility] documented in this encounter Plan of Treatment Upcoming Encounters Date Type Department Care Team (Late st Contact Info) Description 12/20/2024 11:30 AM EDT Office Visit Cardiology, [facility] [address] [facility] [place] [address] Jenna Rosado PA-C [address] [place] [address] [place] [id number] 03/08/2025 8:00 AM EDT Office Visit Family Medicine [address] [place] [phone] Alessia Lorenzo MD [address] [place] [address] [place] [phone] Health Maintenance Due Date Last Done Comments [...] 2024 Lipid Panel 10/15/2024 10/15/2019, 01/06/2019 GFR 06/07/2025 12/08/2024, 05/2025, 10/15/2019, Additional history exists CKD PHOS USE SMARTSET 18563 10/20/2025 10/20/2024 CKD HGB USE SMARTSET 79136 12/08/202512/08, 12/08/2024, 10/20/2024, Additional history exists AAA Screening Completed 01/11/2019 [...] filedocumented as of this encounter Care Teams Hamper Maker Machine Relationship Specialty Start Date End Date Alessia Lorenzo MD [address] [place] [address] [place] [phone] PCP - General Family Medicine 11/08/24 documented as of this encounter
--- OUTSIDE RECORDS SUMMARY | 2024-12-30 08:32 | External Medical Summary ---
Author Name Unknown Address Unknown Organization K09:[facility] [place] [address] Laboratory Report Ordering Provider Test Date Status ELENITA ROSENBAUM 12/20/2024 12:17:52 Final Observation Date Value Abnormality Reference (Units ) Status BUN 12/20/2024 12:17:52 19 6-20 (mg/dL) Final Creatinine 12/20/2024 12:17:52 1.3 Above high normal 0.6-1.2 (mg/dL) Final Glomerular filtration rate/1.73 sq M.predicted [Volume Rate/Area] in Serum, Plasma or Blood by Creatinine-based formula (CKD-EPI) 12/20/2024 12:17:52 57 Below low normal >=60 (mL/min) Final eGFR is calculated based on the CKD-EPI 2020 equation. Sodium 12/20/2024 12:17:52 141 135-146 (m mol/L) Final Potassium 12/20/2024 12:17:52 4.7 3.5-5.1 (m mol/L) Final Cl 12/20/2024 12:17:52 105 98-107 (mm ol/L) Final CO2 12/20/2024 12:17:52 27 22-32 (mmo l/L) Final Anion gap 12/20/2024 12:17:52 9 7-15 (mmol /L) Final Glucose 12/20/2024 12:17:52 87 70-120 (mg /dL) Final Calcium 12/20/2024 12:17:52 9.6 8.4-10.2 ( mg/dL) Final Performing Location [facility] [place] [address]
--- OUTSIDE RECORDS SUMMARY | 2024-12-30 08:32 | External Medical Summary | Summary of Care ---
Author Name Unknown Organization [facility] Address [address] [place] [address] Phone [phone] Care Team Providers Care Industrial Property Appraiser Name Role Phone Alessia Lorenzo MD Primary Care Pr raleigher Reason for Visit * Reason Comments Outpatient Testing Encounter Details Date Type Department Care Team (Late st Contact Info) Description 12/08/2024 8:20 AM EST Laboratory Laboratory [address] [place] [phone] [address] [place] [id number] Stage 3a chronic kidney disease (HCC); Hypertension goal BP (blood pressure) < 140/90; Leg swelling; Other fatigue Allergies No known active allergiesdocumented as of this encounter (statuses as of 12/08/2024) Medications Carvedilol 3.125 MG Oral Tablet (Coreg)Indications: [...] the morning. 90 Tablet 1 5 Active documented as of this encounter [...] PM EST documented as of this encounter Plan of Treatment Upcoming Encounters Date Type Department Care Team (Late st Contact Info) Description 03/08/2025 8:00 AM EDT Office Visit Family Medicine [address] [phone] Alessia Lorenzo MD [address] [place] [address] [place] [phone] Pending Results Name Type Priority Associated Diagnoses Date /Time COMPREHENSIVE METABOLIC PANEL Lab Routine Stage 3a chronic kidney disease (HCC) Hypertension goal BP (blood pressure) < 140/90 Leg swelling 12/08/2024 8:17 AM EST CBC WITH WBC DIFFERENTIAL Lab Routine Stage 3a chronic kidney disease (HCC) Hypertension goal BP (blood pressure) < 140/90 12/08/2024 8:17 AM EST TSH WITH FREE T4 IF INDICATED Lab Routine Leg swelling Other fatigue 12/08/2024 8:17 AM EST CBC Lab Routine Stage 3a chronic kidney disease (HCC) Hypertension goal BP (blood pressure) < 140/90 12/08/2024 8:17 AM EST DIFFERENTIAL, AUTOMATED Lab Routine Stage 3a chronic kidney disease (HCC) Hypertension goal BP (blood pressure) < 140/90 12/08/2024 8:17 AM EST Health Maintenance Due Date Last Done Comments Albumin/Creatinine Ratio 1971 DTap/Tdap Vaccines (1 - Tdap) 1972 Pneumococcal Vaccine: 50+ Years (1 of 2 - PCV) 1972 Cologuard 1998 Colonoscopy 1998 Colorectal Cancer Screening 1998 Fecal Occult Blood Test 1998 Sigmoidoscopy 1998 Zoster Vaccines (1 of 2) 2003 Adult Wellness Visit 2019 Depression Screening 06/20/2021 06/20/2020 Yepez's Esophagus Surveilance 11/19/2021 11/19/2018 COVID-19 Vaccine (4 - 2023-2 5 season) 2024 09/12/2021, 02/22/2021, 01/23/2021 Influenza Vaccine (FLU shot) (#1) 2024 Lipid Panel 10/15/2024 10/15/2019, 01/06/2019 GFR 04/19/2025 10/20/2024, 10/15/2019, 11/18/2018 CKD HGB USE SMARTSET 05839 10/20/202510/20, 11/18/2018 CKD PHOS USE SMARTSET 24404 10/20/2025 10/20/2024 AAA Screening Completed 01/11/2019 HPV [...] Not on filedocumented as of this encounter Visit Diagnoses Diagnosis Stage 3a chronic kidney disease (HCC) Hypertension goal BP (blood pressure) < 140/90 Unspecified essential hypertension Leg swelling Swelling of limb Other fatigue documented in this encounter Care Teams Industrial Property Appraiser Relationship Specialty Start Date End Date Alessia Lorenzo MD [address] [place] [address] [place] [phone] PCP - General Family Medicine 11/08/24 documented as of this encounter
--- OUTSIDE RECORDS SUMMARY | 2024-12-30 08:32 | External Medical Summary ---
Author Name Unknown Address Unknown Organization K01:LABORATORY [facility] - [address] [facility] [address] Laboratory Report Ordering Provider Test Date Status ROCCO GARCIA 12/08/2024 08:17:40 Final Observation Date Value Abnormality Reference (Units ) Status BUN 12/08/2024 08:17:40 22 Above high normal 6-20 (mg/dL) Final Creatinine 12/08/2024 08:17:40 1.4 Above high normal 0.6-1.2 (mg/dL) Final Glomerular filtration rate/1.73 sq M.predicted [Volume Rate/Area] in Serum, Plasma or Blood by Creatinine-based formula (CKD-EPI) 12/08/2024 08:17:40 54 Below low normal >=60 (mL/min) Final eGFR is calculated based on the CKD-EPI 2020 equation. Sodium 12/08/2024 08:17:40 140 135-146 (m mol/L) Final Potassium 12/08/2024 08:17:40 4.8 3.5-5.1 (m mol/L) Final Cl 12/08/2024 08:17:40 104 98-107 (mm ol/L) Final CO2 12/08/2024 08:17:40 26 22-32 (mmo l/L) Final Anion gap 12/08/2024 08:17:40 10 7-15 (mmol /L) Final Glucose 12/08/2024 08:17:40 84 70-120 (mg /dL) Final Albumin 12/08/2024 08:17:40 4.2 3.8-5.0 (g /dL) Final AST (Aspartate aminotransferase) 12/08/2024 08:17:40 22 10-50 (U/L) Final Alk Phos 12/08/2024 08:17:40 71 35-130 (U/ L) Final Bilirubin, Total 12/08/2024 08:17:40 0.5 <=1 .2 (mg/dL) Final Calcium 12/08/2024 08:17:40 9.5 8.4-10.2 ( mg/dL) Final Protein 12/08/2024 08:17:40 6.9 6.0-8.3 (g /dL) Final ALT (Alanine aminotransferase) 12/08/2024 08:17:40 17 10-50 (U/L) Final Performing Location LABORATORY [facility] - [address] [facility] [address]
--- OUTSIDE RECORDS SUMMARY | 2024-12-30 08:32 | External Medical Summary | Summary of Care ---
Author Name Unknown Organization [facility] Address [address] [place] [address] Phone [phone] Care Team Providers Care Traffic Director Name Role Phone Alessia Lorenzo MD Primary Care Pr ovider Reason for Visit * Reason Onset Date Comments Referral 12/06/2024 Encounter Details Date Type Department Care Team (Late st Contact Info) Description 12/06/2024 New Patient Triage (SENIOR FOREMAN USE ONLY) Cardiology, [facility] [address] [place] [address] Isabella Thornton, PROFESSIONAL NURSING TUTOR [address] [place] [address] Referral Allergies No known active [...] as of this encounter Progress Notes * Yuly Morataya RN - 12/08/2024 3:19 [...] Green OSA - 12/07/2024 8:15 AM EST Yuly I rescheduled this patient to: NEW CARDIOLOGY at 11:30 AM (60 min)Arrive by 11:15 AM December Appointment Provider:Mey Jose CRNP in CARDIOLOGY [facility] Is this appropriate, we looked at [...] - Primary Enter order ID here: Order [id number] Specialty specific documentation: Cardiology Structural Heart Discussed care plan with patient or proxy?: Yes jose Communicated with patient on Date (mm/dd/yyyy): 12/06/2024 at Time ([facility]): 10:54AM INFO FROM CARDIAC REFERRAL Dr Bland recommended consultation w/r/t recent stress test APPOINTMENT INFO: 04/18/2025 09:00 AM Cardiology [facility] Tucker Crisostomo, DO PCP/REFERRING November 29, 2024 11/29/24 5:10 PM Alessia Lorenzo MD routed this conversation to [facility] Specialty Scheduling Pool/Class Alessia Lorenzo MD 11/29/24 5:10 PM Note Received message from Dr Bland regarding recent stress test. Read as no ischemia, but there weresome things that weren't quite normal. He would like to see the patient for consultation. Entered referral. 11/29/24 5:11 PM Alessia Lorenzo MD routed this conversation to [facility] Specialty Scheduling Pool/Class November 30, 2024 Dania Morataya OSA PW 11/30/24 9:23 AM Note I spoke to patient and scheduled Cardiology appt for 04/18/25 @ 9:00 am w/ Dr. Crisostomo at [facility]. (Pt also placed on a cancellation list). He has questions regarding the need of this appt and results of the stress test. He was never notified. Could someone call patient? Thanks so much. PW 11/30/24 9:23 AM Dania Morataya OSA routed this conversation to [facility]/Class Alessia Lorenzo MD Cattoi Seifert, Amanda Leslie, MD 11/30/24 9:28 AM Note The stress test was read as normal, but Dr Bland was concerned with the symptoms he had with themedication infusion and felt the patient would benefit from seeing Cardiology for follow up. Please let him know 11/30/24 9:28 AM Alessia Lorenzo, MD routed this conversation to [facility] Nurse Pool/Class December 01, 2024 Mahnaz Espitia [...] Sublingual (Nitrostat) HOSPITALIZATIONS/CONSULTS Scanned under media 09/29/2025 [facility] documented in this encounter Plan of Treatment Upcoming Encounters Date Type Department Care Team (Late st Contact Info) Description 03/08/2025 8:00 AM EDT Office Visit [facility] Medicine [address] [place] [phone] Alessia Lorenzo MD [address] [place] [address] [place] [phone] Health Maintenance Due Date [...] 12/08/2024, 05/2025, 10/15/2019, Additional history exists CKD HGB USE SMARTSET 66484 10/20/202512/08, 12/08/2024, 10/20/2024, Additional history exists CKD PHOS USE SMARTSET 82295 10/20/2025 10/20/2024 AAA Screening Completed 01/11/2019 HPV [...] filedocumented as of this encounter Care Teams Traffic Director Relationship Specialty Start Date End Date Alessia Lorenzo MD [address] [place] [address] [place] [phone] PCP - General Family Medicine 11/08/24 documented as of this encounter
--- OUTSIDE RECORDS SUMMARY | 2024-12-30 08:32 | External Medical Summary ---
Author Name Unknown Address Unknown Organization K01:[facility] [place] [address] [facility] [address] [facility] [address] Laboratory Report Ordering Provider Test Date Status ROCCO GARCIA 12/08/2024 08:17:40 Final Observation Date Value Abnormality Reference (Units ) Status WBC, Total 12/08/2024 08:17:40 7.11 4.00-10.80 (K/uL) Final RBC 12/08/2024 08:17:40 5.10 4.50-5.25 (M/uL) Final Hemoglobin 12/08/2024 08:17:40 15.0 14.0-16.8 (g/dL) Final HCT 12/08/2024 08:17:40 46.1 40.0-48.4 (%) Final MCV 12/08/2024 08:17:40 90.4 82.0-99.5 (fL) Final MCH 12/08/2024 08:17:40 29.4 27.0-34.0 (pg) Final MCHC 12/08/2024 08:17:40 32.5 32.0-36.0 (g/dL) Final RDW 12/08/2024 08:17:40 13.2 11.5-15.5 (%) Final Platelets 12/08/2024 08:17:40 226 140-400 (K/uL) Final MPV 12/08/2024 08:17:40 11.7 6.6-11.1 (fL) Final Nucleated erythrocytes/100 leukocytes [Ratio] in Blood by Automated count 12/08/2024 08:17:40 0 <=0 (/100 WBCs) Final Performing Location [facility] [place] [address] [facility] [address]
--- OUTSIDE RECORDS SUMMARY | 2024-12-30 08:33 | External Medical Summary | Summary of Care ---
Author Name Unknown Organization [facility] Address [address] [place] [place] [place] [address] Phone [phone] Care Team Providers Care Cardiovascular Sonographer Name Role Phone Nieves Sarabia MD Primary Care Prov ider Reason for Visit * Reason Comments Outpatient Testing Encounter Details Date Type Department Care Team ([facility] st Contact Info) Description 10/20/2024 9:10 AM EST Laboratory Laboratory [address] [place] [phone] [place] [address] Stable angina (HCC); Hypertension goal BP (blood pressure) < 140/90 Allergies No known active allergiesdocumented as of this encounter (statuses as of 10/20/2024) Medications amLODIPine Besylate 5 MG Oral Tablet (Norvasc) Take 1 Tablet by mouth in the morning. 10/09/2024 Active Aspirin 81 MG Oral Tablet Delayed Release Take 1 Tablet by mouth in the morning. 10/09/2024 Active Carvedilol 3.125 MG Oral Tablet (Coreg) Take 1 Tablet by mouth 2 times a day with morning and evening meals. 10/09/2024 Active Nitroglycerin 0.4 MG Sublingual Tablet Sublingual (Nitrostat) Place 1 Tablet under the tongue every 5 minutes as needed for Pain, Chest. 10/09/2024 Active Rosuvastatin Calcium 10 MG Oral Tablet (Crestor) Take 1 Tablet by mouth in the morning. 10/09/2024 Active documented as of this encounter (statuses as of 10/20/2024) Active Problems Problem Noted Date Diagnosed Date [...] as of this encounter (statuses as of 10/20/2024) Resolved Problems Problem Noted Date Diagnosed Date Resolved Date Kidney disease, chronic, sta ge III (GFR 30-59 ml/min) 10/19/2019 08/24/2020 Overview: Per CKD protocol documented as of this encounter (statuses as of 10/20/2024) Social History Tobacco Use Types Packs/Day Years [...] 06/20/2020 Hunger Vital Sign Answer Date Recorded Worried About Running Out of Food in the Last Ye ar Never true 06/20/2020 Ran Out of Food in the Last Year Never true 06/20/2020 Sex and Gender Information Value Date Recorded Sex Assigned at Not on file Legal Sex Male 5:50 AM EST Gender Identity Not on file Sexual Orientation Not on file documented as of this encounter Plan of Treatment Upcoming Encounters Date Type Department Care Team (Late st Contact Info) Description 11/26/2024 8:00 AM EST Office Visit Family Medicine [address] [place] [phone] Alessia Lorenzo MD [address] [place] [address] [place] [phone] 11/29/2024 10:15 AM EST [facility] [address] [place] [id number] Gw, Excess Time Radiology [address] [place] [id number] Pending Results Name Type Priority Associated Diagnoses Date /Time CBC Lab Routine Stable angina (HCC) Hypertension goal BP (blood pressure) < 140/90 10/20/2024 9:23 AM EST COMPREHENSIVE METABOLIC PANEL Lab Routine Stable angina (HCC) Hypertension goal BP (blood pressure) < 140/90 10/20/2024 9:23 AM EST MAGNESIUM Lab Routine Hypertension goal BP (blood pressure) < 140/90 10/20/2024 9:23 AM EST PHOSPHORUS Lab Routine Hypertension goal BP (blood pressure) < 140/90 10/20/2024 9:23 AM EST Health Maintenance Due Date Last Done Comments Albumin/Creatinine Ratio 1971 CKD PHOS USE SMARTSET 89459 1971 DTap/Tdap Vaccines (1 - Tdap) 1972 Pneumococcal Vaccine: 50+ Years (1 of 2 - PCV) 1972 Cologuard 1998 Colonoscopy 1998 Colorectal Cancer Screening 1998 Fecal Occult Blood Test 1998 Sigmoidoscopy 1998 Zoster Vaccines (1 of 2) 2003 Adult Wellness Visit 2019 CKD HGB USE SMARTSET 25362 11/18/2019 11/18/2018 GFR 04/14/2020 10/15/2019, 11/18/2018 Depression Screening 06/20/2021 06/20/2020 Yepez's Esophagus Surveilance 11/19/2021 11/19/2018 COVID-19 Vaccine (2023-2 5 season) 2024 09/12/2021, 02/22/2021, 01/23/2021 Influenza Vaccine (FLU shot) (#1) 2024 Lipid Panel 10/15/2024 10/15/2019, 01/06/2019 AAA Screening Completed 01/11/2019 HPV (Gardasil) Vaccine [...] as of this encounter Visit Diagnoses Diagnosis Stable angina (HCC) Other and unspecified angina pectoris Hypertension goal BP (blood pressure) < 140/90 Unspecified essential hypertension documented in this encounter Care Teams Cardiovascular Sonographer Relationship Specialty Start Date End Date Nieves Sarabia MD [address] [place] [address] [place] [phone] PCP - General Family Medicine 10/14/24 documented as of this encounter
--- OUTSIDE RECORDS SUMMARY | 2024-12-30 08:33 | External Medical Summary | Summary of Care ---
Author Name Unknown Organization [facility] Address [address] [place] [address] Phone [phone] Care Team Providers Care Finance Director Name Role Phone Alessia Lorenzo MD Primary Care [facility] Reason for Visit * Reason Onset Date Comments Referral 12/06/2024 Encounter Details Date Type Department Care Team (Late st Contact Info) Description 12/06/2024 New Patient Triage (HOUSE NURSE USE ONLY) Cardiology, [facility] [address] [place] [address] Isabella Thornton, MMD UNIT TEACHER [address] [place] [address] Referral Allergies No known active allergiesdocumented as of this encounter (statuses as of 12/06/2024) Medications Carvedilol 3.125 MG Oral Tablet (Coreg)Indication [...] as of this encounter (statuses as of 12/06/2024) Active Problems Problem Noted Date Diagnosed Date [...] as of this encounter (statuses as of 12/06/2024) Resolved Problems Problem Noted Date Diagnosed Date Resolved Date Kidney disease, chronic, sta ge III (GFR 30-59 ml/min) 10/19/2019 08/24/2020 Overview: Per CKD protocol documented as of this encounter (statuses as of 12/06/2024) Social History Tobacco Use Types Packs/Day Years [...] as of this encounter Progress Notes * Maureen Dyer LPN - 12/06/2024 10:56 AM EST New Patient Triage What is the diagnosis/reason for referral?: Stable angina (HCC) [I20.89] - Primary Enter order ID here: Order [id number] Specialty specific documentation: Cardiology Structural Heart Discussed care plan with patient or proxy?: Yes jose Communicated with patient on Date (mm/dd/yyyy): 12/06/2024 at Time ([facility]): 10:54AM INFO FROM CARDIAC REFERRAL Dr Bland recommended consultation w/r/t recent stress test APPOINTMENT INFO: 04/18/2025 09:00 AM Cardiology [facility] Tucker Crisostomo, PCP/REFERRING November 29, 2024 [...] @ 9:00 am w/ Dr. Crisostomo at [facility]. (Pt also placed on a cancellation list). He has questions regarding the need of this appt and results of the stress test. He was never notified. Could someone call patient? Thanks so much. PW 11/30/24 9:23 AM Dania Morataya OSA routed this conversation to [facility] Nurse Leivasy/Class Alessia Lorenzo MD Cattoi Seifert, Amanda Leslie, MD 11/30/24 9:28 AM Note The stress test was read as normal, but Dr Bland was concerned with the symptoms he had with themedication infusion and felt the patient would benefit from seeing Cardiology for follow up. Please let him know 11/30/24 9:28 AM Alessia Lorenzo MD routed this conversation to [facility] Nurse Pool/Class December 01, 2024 [...] Sublingual (Nitrostat) HOSPITALIZATIONS/CONSULTS Scanned under media 09/29/2025 [facility] documented in this encounter Plan of Treatment Upcoming Encounters Date Type Department Care Team (Late st Contact Info) Description 03/08/2025 8:00 AM EDT Office Visit Family Medicine [address] [place] [phone] Alessia Lorenzo MD [address] [place] [address] [place] [phone] 04/18/2025 9:00 AM EDT Office Visit Cardiology, [facility] [address] [place] [address] Tucker Crisostomo DO [address] [place] [address] Health Maintenance Due Date Last Done Comments [...] 10/20/2024, 10/15/2019, 11/18/2018 CKD HGB USE SMARTSET 96329 10/20/202510/20, 11/18/2018 CKD PHOS USE SMARTSET 06372 10/20/2025 10/20/2024 AAA Screening Completed 01/11/2019 HPV [...] filedocumented as of this encounter Care Teams Finance Director Relationship Specialty Start Date End Date Alessia Lorenzo MD [address] [place] [address] [place] [phone] PCP - General Family Medicine 11/08/24 documented as of this encounter
--- OUTSIDE RECORDS SUMMARY | 2024-12-30 08:33 | External Medical Summary | Summary of Care ---
Author Name Unknown Organization [facility] Address [address] [place] [address] Phone [phone] Care Team Providers Care Urologist Physician Name Role Phone Alessia Lorenzo MD Primary Care Pr [facility] Encounter Details Date Type Department Care Team ([facility] st Contact Info) Description 10/09/2024 Result Scan Unspecified Department <No scans attached> Allergies No known active allergiesdocumented as of this encounter (statuses as of 12/07/2024) Medications No known medicationsdocumented as of this encounter (statuses as of 12/07/2024) Active Problems Problem Noted Date Diagnosed Date [...] as of this encounter (statuses as of 12/07/2024) Resolved Problems Problem Noted Date Diagnosed Date Resolved Date Kidney disease, chronic, sta ge III (GFR 30-59 ml/min) 10/19/2019 08/24/2020 Overview: Per CKD protocol documented as of this encounter (statuses as of 12/07/2024) Social History Tobacco Use Types Packs/Day Years [...] 8:00 AM EDT Office Visit Family Medicine [address] [place] [address] Alessia Lorenzo MD [address] [place] [address] [place] [phone] Health Maintenance Due Date [...] 10/20/2024, 10/15/2019, 11/18/2018 CKD HGB USE SMARTSET 91602 10/20/202510/20, 11/18/2018 CKD PHOS USE SMARTSET 90580 10/20/2025 10/20/2024 AAA Screening Completed 01/11/2019 HPV [...] Procedure Name Priority Date/Time Associated Diagnosis Comments ECHOCARDIOLOGY SCANNED RESULT 10/09/2024 documented in this encounter Results * ECHOCARDIOLOGY SCANNED RESULT (10/09/2024) 10/09/2024 us No Physician Data Unknown ECHOCARDIOLOGY Final Result documented in this encounter Care Teams Urologist Physician Relationship Specialty Start Date End Date Alessia Lorenzo MD [address] [place] [address] [place] [phone] PCP - General Family Medicine 11/08/24 documented as of this encounter
--- OUTSIDE RECORDS SUMMARY | 2024-12-30 08:33 | External Medical Summary | Summary of Care ---
Author Name Unknown Organization [facility] Address [address] [place] [address] Phone [phone] Care Team Providers Care Social Economist Name Role Phone Alessia Lorenzo MD Primary Care Pr [facility] Reason for Visit * Reason Comments Follow Up Encounter Details Date Type Department Care Team (Late st Contact Info) Description 12/06/2024 11:20 AM EST Office Visit Family Medicine [address] [phone] Alessia Lorenzo MD [address] [place] [address] [place] [address] Stable angina (HCC)*; Hypertension goal BP (blood pressure) < 140/90; Stage 3a chronic kidney disease (HCC); Adjustment insomnia; Leg swelling; Other fatigue Allergies No known active allergiesdocumented as of this encounter (statuses as of 12/06/2024) Medications Carvedilol 3.125 MG Oral Tablet (Coreg)Indication s:Hypertension goal BP (blood pressure) < 140/90 Take 1 Tablet by mouth 2 times a day with morning and evening meals. 180 Tablet 11/09/19 25 Active Rosuvastatin Calcium 10 MG Oral Tablet (Crestor)Indicati ons:Mixed hyperlipidemia Take 1 Tablet by mouth in the morning. 90 Tablet 1 11/09/19 25 Active Nitroglycerin 0.4 MG Sublingual Tablet Sublingual (Nitrostat) Place 1 Tablet under the tongue every 5 minutes as needed for Pain, Chest. 25 Tablet 2 12/06/19 25 Active hydrOXYzine HCl 25 MG Oral Tablet Take 1 Tablet by mouth at bedtime. 40 Tablet 2 12/06/19 25 Active amLODIPine Besylate 10 MG Oral Tablet (Norvasc)Indicati ons:Hypertension goal BP (blood pressure) < 140/90 Take 1 Tablet by mouth in the morning. 90 Tablet 1 12/06/19 25 Active Aspirin 81 MG Oral Tablet [...] Sign Reading Time Taken Comments Blood Pressure 140/70 12/06/2024 10:58 AM EST Pulse 75 12/06/2024 10:58 AM EST Temperature 36.1 C (96.9 F) 12/06/2024 1 0:58 AM EST Respiratory Rate - - Oxygen Saturation 95% 12/06/2024 10: 58 AM EST Inhaled Oxygen Concentration - - Weight 102.2 kg (225 lb 6.4 oz) 025 10:58 AM EST Height 175.3 cm (5' 9") 12/06/2024 10:5 8 AM EST Body Mass Index 33.29 12/06/2024 10:58 AM EST documented in this encounter Progress Notes * Bernardo Denny, Alessia Eldridge MD - 12/06/2024 11:15 AM EST Images from the original note were not included. History of Present Illness Mukund Camacho is a 69 year old male that presents for Follow Up History of Present Illness The patient, with a history of heart-related issues, presents with chest tightness and high blood pressure. The chest tightness, described as a 'tight feeling' and 'twitch' in the chest, occurs during physical activity such as walking and loading groceries. The patient manages the chest tightness with nitroglycerin, which effectively alleviates the discomfort but leaves him feeling woozy and flushed. The patient's blood pressure, which he monitors regularly, has been running high with readings in the mid-thirties to mid- forties for the top number and seventies to eighties for the bottom number. The patient also reports interrupted sleep, waking up almost every hour after the first couple ofhours of sleep. He expresses anxiety and has considered taking hydroxyzine, a medication previouslyprescribed by another doctor. Yesterday, had to take some nitro for chest pains. After walking to the store and carrying groceries. Physical Exam BP 140/70 | Pulse 75 | Temp 96.9 F (36.1 C) (Infrared ) | Ht 5' 9" (1.753 m) | Wt 225 lb 6.4 oz(102.2 kg) | SpO2 95% | BMI 33.29 kg/m | BSA 2.23 m Physical Exam Vitals and nursing note reviewed. Constitutional: General: He is not in acute distress. HENT: Head: Normocephalic and atraumatic. Mouth/Throat: Mouth: Mucous membranes are moist. Eyes: Extraocular Movements: Extraocular movements intact. Neck: Thyroid: No thyromegaly. Cardiovascular: Rate and Rhythm: Normal rate and regular rhythm. Pulmonary: Breath sounds: Normal breath sounds. No wheezing or rhonchi. Musculoskeletal: General: Normal range of motion. Cervical back: Normal range of motion and neck supple. Right lower leg: Edema present. Left lower leg: Edema present. Comments: Trace ankle edema bilaterally Skin: General: Skin is warm and dry. Findings: No lesion or rash. Neurological: General: No focal deficit present. Mental Status: He is alert and oriented to person, place, and time. Psychiatric: Mood and Affect: Mood normal. Behavior: Behavior normal. Assessment and Plan Assessment & Plan Angina Experiences chest tightness with exertion, relieved by rest and nitroglycerin. Stress test was negative, but symptoms occurred during the test. Continue nitroglycerin as needed for chest pain. Refer to cardiology for further evaluation, aiming to expedite appointment. Consider ordering echocardiogram pending review of previous results from [facility]. Hypertension Blood pressure readings at home are elevated despite medication. Increase Amlodipine to 10mg daily.Check blood pressure at next visit and adjust medication as needed. Insomnia Has difficulty maintaining sleep, waking up hourly. Refill Hydroxyzine prescription for use as needed for sleep. Follow-up in 3 months, or sooner if cardiology appointment is scheduled. Blood work to be done prior to next visit. Stable angina (HCC) Stage 3a chronic kidney disease (HCC) Hypertension goal BP (blood pressure) < 140/90 Adjustment insomnia Wrap-Up Follow Up: Return in about 3 months (around 03/05/2025) for Return with Physician. | For: Return with Physician | Check-out note: Please request echo report from [facility] Time: I spent a total of 20-29 minutes (exact time 25 mins) on the date of service in preparation, delivery, and documentation of the care provided to Mukund Camacho excluding any time spent in the performance of separately billed services. Text in this note was generated using an ambient documentation service. I discussed the use of a device to record and summarize our discussion today. All persons present during the encounter consented to its use. documented in this encounter Nursing Notes * Mahnaz Espitia CMA - 12/06/2024 10:58 AM EST 6 week f/u Reports had to use Nitro 2 times yesterday, pt reports went to [place] to apple picker something, started getting tight feeling after walking in and back out of [place], face felt flushed and tingled after taking Nitro. Not sure if is anxious, as he is having a hard time sleeping at night, falls asleep but can't stay asleep, reports had been on hydroizine prior to help wants to know if can get back on. Reports bp at home has been high 130-140s at home for top number and in 70s-80s for bottom number. documented in this encounter Plan of Treatment Upcoming Encounters Date Type Department Care Team (Late st Contact Info) Description 03/08/2025 8:00 AM EDT Office Visit Family Medicine [address] [place] [phone] Alessia Lorenzo MD [address] [place] [address] [place] [phone] 04/18/2025 9:00 AM EDT Office Visit Cardiology, [facility] [address] [place] [address] Tucker Crisostomo DO [address] [place] [address] Scheduled Orders Name Type Priority Associated Diagnoses Orde r Schedule COMPREHENSIVE METABOLIC PANEL Lab Routine Stage 3a chronic kidney disease (HCC) Hypertension goal BP (blood pressure) < 140/90 Leg swelling Expected: 12/06/2024 (Approximate), Expires: 01/03/2026 CBC WITH WBC DIFFERENTIAL Lab Routine Stage 3a chronic kidney disease (HCC) Hypertension goal BP (blood pressure) < 140/90 Expected: 12/06/2024 (Approximate), Expires: 12/06/2025 TSH WITH FREE T4 IF INDICATED Lab Routine Leg swelling Other fatigue Expected: 12/06/2024 (Approximate), Expires: 12/06/2025 Health Maintenance Due Date Last Done Comments [...] 10/20/2024, 10/15/2019, 11/18/2018 CKD HGB USE SMARTSET 64618 10/20/202510/20, 11/18/2018 CKD PHOS USE SMARTSET 19904 10/20/2025 10/20/2024 AAA Screening Completed 01/11/2019 HPV [...] (HCC)- Primary Other and unspecified angina pectoris Hypertension goal BP (blood pressure) < 140/90 Unspecified essential hypertension Stage 3a chronic kidney disease (HCC) Adjustment insomnia Transient disorder of initiating or maintaining sleep Leg swelling Swelling of limb Other fatigue documented in this encounter Care Teams Social Economist Relationship Specialty Start Date End Date Alessia Lorenzo MD [address] [place] [address] [place] [phone] PCP - General Family Medicine 11/08/24 documented as of this encounter
--- OUTSIDE RECORDS SUMMARY | 2024-12-30 08:33 | External Medical Summary | Summary of Care ---
Author Name Unknown Organization [facility] Address [address] [place] [address] Phone [phone] Care Team Providers Care Cash Reconciliation Specialist Name Role Phone Alessia Lorenzo MD Primary Care Pr [facility] Reason for Visit * Reason Onset Date Comments Referral 12/06/2024 Encounter Details Date Type Department Care Team (Late st Contact Info) Description 12/06/2024 New Patient Triage (WREATH MAKER USE ONLY) Cardiology, [facility] [address] [place] [address] Isabella Thornton, COMPOSITION WORKER [address] [place] [address] Referral Allergies No known active allergiesdocumented as of this encounter (statuses as of 12/07/2024) Medications Carvedilol 3.125 MG Oral Tablet (Coreg)Indication [...] Progress Notes * Kwadwo Green, NICHOLE - 12/07/2024 9:21 AM EST Called patient, he accepted Friday12/17/24 at 1130 am with Mey Thank you. * Kwadwo Green OSA - 12/07/2024 8:15 AM EST Yuly I rescheduled this patient to: NEW CARDIOLOGY at 11:30 AM (60 min)Arrive by 11:15 AM December Appointment Provider:Mey Jose CRNP in CARDIOLOGY [facility] Is this appropriate, we looked at [...] - Primary Enter order ID here: Order [id number] Specialty specific documentation: Cardiology Structural Heart Discussed care plan with patient or proxy?: Yes jose Communicated with patient on Date (mm/dd/yyyy): 12/06/2024 at Time ([facility]): 10:54AM INFO FROM CARDIAC REFERRAL Dr Bland recommended consultation w/r/t recent stress test APPOINTMENT INFO: 04/18/2025 09:00 AM Cardiology [facility] Tucker Crisostomo, DO PCP/REFERRING November 29, 2024 11/29/24 5:10 PM Alessia Lorenzo MD routed this conversation to [facility] Specialty Scheduling Pool/Class Alessia Lorenzo MD 11/29/24 5:10 PM Note Received message from Dr Bland regarding recent stress test. Read as no ischemia, but there weresome things that weren't quite normal. He would like to see the patient for consultation. Entered referral. 11/29/24 5:11 PM Alessia Lorenzo MD routed this conversation to [facility] Specialty Scheduling Pool/Class November 30, 2024 Dania Morataya OSA PW 11/30/24 9:23 AM Note I spoke to patient and scheduled Cardiology appt for 04/18/25 @ 9:00 am w/ Dr. Crisostomo at [facility]. (Pt also placed on a cancellation list). He has questions regarding the need of this appt and results of the stress test. He was never notified. Could someone call patient? Thanks so much. PW 11/30/24 9:23 AM Dania Morataya OSA routed this conversation to [facility] Alessia Lorenzo MD Cattoi Seifert, Amanda Leslie, MD 11/30/24 9:28 AM Note The stress test was read as normal, but Dr Bland was concerned with the symptoms he had with themedication infusion and felt the patient would benefit from seeing Cardiology for follow up. Please let him know 11/30/24 9:28 AM Alessia Lorenzo MD routed this conversation to [facility] Nurse Pool/Class December 01, 2024 Mahnaz Espitia [...] Sublingual (Nitrostat) HOSPITALIZATIONS/CONSULTS Scanned under media 09/29/2025 [facility] documented in this encounter Plan of Treatment Upcoming Encounters Date Type Department Care Team (Late st Contact Info) Description 03/08/2025 8:00 AM EDT Office Visit Family Medicine [address] [place] [phone] Alessia Lorenzo MD [address] [place] [address] [place] [phone] Health Maintenance Due Date [...] 10/20/2024, 10/15/2019, 11/18/2018 CKD HGB USE SMARTSET 54756 10/20/202510/20, 11/18/2018 CKD PHOS USE SMARTSET 34307 10/20/2025 10/20/2024 AAA Screening Completed 01/11/2019 HPV [...] filedocumented as of this encounter Care Teams Cash Reconciliation Specialist Relationship Specialty Start Date End Date Alessia Lorenzo MD [address] [place] [address] [place] [phone] PCP - General Family Medicine 11/08/24 documented as of this encounter
--- OUTSIDE RECORDS SUMMARY | 2024-12-30 08:33 | External Medical Summary | Summary of Care ---
Author Name Unknown Organization [facility] Address [address] [place] [address] Phone [phone] Care Team Providers Care Spinner Tender Name Role Phone Alessia Lorenzo MD Primary Care Pr [facility] Reason for Visit * Reason Onset Date Comments Referral 12/06/2024 Encounter Details Date Type Department Care Team (Late st Contact Info) Description 12/06/2024 New Patient Triage (AIR CHIEF MARSHAL USE ONLY) Cardiology, [facility] [address] [place] [address] Isabella Thornton, PROMOTIONS ASSISTANT [address] [place] [address] Referral Allergies No known active [...] as of this encounter Progress Notes * Osmel Osullivan PA-C - 12/06/2024 8:04 PM EST Does patient need to be seen?: Yes Modality: Office visit Urgency: Within 3 days (urgent) Discussed care plan with patient or proxy?: Yes Communicated with patient on Date (mm/dd/yyyy): 12/06/2024 Needs to be seen THIS WEEK. ER with worsening symptoms. Osmel Osullvian PA-C Department of Cardiology * Maureen DyerDYLLAN - 12/06/2024 10:56 AM EST New Patient Triage What is the diagnosis/reason for referral?: Stable angina (HCC) [I20.89] - Primary Enter order ID here: Order [id number] Specialty specific documentation: Cardiology Structural Heart Discussed care plan with patient or proxy?: Yes mildredt Communicated with patient on Date (mm/dd/yyyy): 12/06/2024 at Time ([facility]): 10:54AM INFO FROM CARDIAC REFERRAL Dr Bland recommended consultation w/r/t recent stress test APPOINTMENT INFO: 04/18/2025 09:00 AM Cardiology [facility] Tucker Crisostomo DO PCP/REFERRING November 29, 2024 11/29/24 5:10 PM Alessia Lorenzo MD routed this conversation to [place] [employer] [facility] Specialty Scheduling Pool/Class Alessia Lorenzo MD 11/29/24 5:10 PM Note Received message from Dr Bland regarding recent stress test. Read as no ischemia, but there weresome things that weren't quite normal. He would like to see the patient for consultation. Entered referral. 11/29/24 5:11 PM Alessia Lorenzo MD routed this conversation to [place] [employer] [facility] Specialty Scheduling Pool/Class November 30, 2024 Dania Morataya OSA PW 11/30/24 9:23 AM Note I spoke to patient and scheduled Cardiology appt for 04/18/25 @ 9:00 am w/ Dr. Crisostomo at [facility]. (Pt also placed on a cancellation list). He has questions regarding the need of this appt and results of the stress test. He was never notified. Could someone call patient? Thanks so much. PW 2/18/25 9:23 AM Dania Morataya OSA routed this conversation to [facility] Nurse Pool/Class Alessia Lorenzo MD Cattoi Seifert, Amanda Leslie, MD 11/30/24 9:28 AM Note The stress test was read as normal, but Dr Bland was concerned with the symptoms he had with themedication infusion and felt the patient would benefit from seeing Cardiology for follow up. Please let him know 11/30/24 9:28 AM Alessia Lorenzo MD routed this conversation to [facility] Nurse Pool/Class December 01, 2024 Mahnaz Espitia [...] Sublingual (Nitrostat) HOSPITALIZATIONS/CONSULTS Scanned under media 09/29/2025 [facility] documented in this encounter Plan of Treatment Upcoming Encounters Date Type Department Care Team (Late st Contact Info) Description 03/08/2025 8:00 AM EDT Office Visit Family Medicine [address] [place] [phone] Alessia Lorenzo MD [address] [place] [address] [place] [phone] 04/18/2025 9:00 AM EDT Office Visit Cardiology, [facility] [address] [place] [address] Tucker Crisostomo DO [address] [place] [address] Health Maintenance Due Date Last Done Comments [...] 10/20/2024, 10/15/2019, 11/18/2018 CKD HGB USE SMARTSET 69655 10/20/202510/20, 11/18/2018 CKD PHOS USE SMARTSET 32216 10/20/2025 10/20/2024 AAA Screening Completed 01/11/2019 HPV [...] filedocumented as of this encounter Care Teams Spinner Tender Relationship Specialty Start Date End Date Alessia Lorenzo MD [address] [place] [address] [place] [phone] PCP - General Family Medicine 11/08/24 documented as of this encounter
--- OUTSIDE RECORDS SUMMARY | 2024-12-30 08:33 | External Medical Summary | Summary of Care ---
Author Name Unknown Organization [facility] Address [address] [place] [address] Phone [phone] Care Team Providers Care Microfilm Camera Operator Name Role Phone Alessia Lorenzo MD Primary Care Pr [facility] Reason for Visit * Reason Onset Date Comments Referral 12/06/2024 Encounter Details Date Type Department Care Team (Late st Contact Info) Description 12/06/2024 New Patient Triage (BANQUET STEWARDESS USE ONLY) Cardiology, [facility] [address] [place] [address] Isabella Thornton, LANDSCAPE FOREMAN [address] [place] [address] Referral Allergies No known active [...] Notes * Kwadwo Green, NICHOLE - 12/07/2024 8:15 AM EST Riya Emery rescheduled this patient to: NEW CARDIOLOGY at 11:30 AM (60 min)Arrive by 11:15 AM December Appointment Provider:Mey Jose CRNP in CARDIOLOGY [facility] Is this appropriate, we looked at [...] - Primary Enter order ID here: Order [id number] Specialty specific documentation: Cardiology Structural Heart Discussed care plan with patient or proxy?: Yes [email or web address] Communicated with patient on Date (mm/dd/yyyy): 12/06/2024 at Time ([facility]): 10:54AM INFO FROM CARDIAC REFERRAL Dr Bland recommended consultation w/r/t recent stress test APPOINTMENT INFO: 04/18/2025 09:00 AM Cardiology [facility] Tucker Crisostomo, DO PCP/REFERRING November 29, 2024 11/29/24 5:10 PM Alessia Lorenzo MD routed this conversation to [facility] Specialty Scheduling Pool/Class Alessia Lorenzo MD 11/29/24 5:10 PM Note Received message from Dr Bland regarding recent stress test. Read as no ischemia, but there weresome things that weren't quite normal. He would like to see the patient for consultation. Entered referral. 11/29/24 5:11 PM Alessia Lorenzo MD routed this conversation to [facility] Specialty Scheduling Pool/Class November 30, 2024 Dania Morataya OSA PW 11/30/24 9:23 AM Note I spoke to patient and scheduled Cardiology appt for 04/18/25 @ 9:00 am w/ Dr. Crisostomo at [facility]. (Pt also placed on a cancellation list). He has questions regarding the need of this appt and results of the stress test. He was never notified. Could someone call patient? Thanks so much. PW 11/30/24 9:23 AM Dania Morataya OSA routed this conversation to [facility] Nurse [place]/Class Alessia Lorenzo MD Cattoi Seifert, Amanda Leslie, MD 11/30/24 9:28 AM Note The stress test was read as normal, but Dr Bland was concerned with the symptoms he had with themedication infusion and felt the patient would benefit from seeing Cardiology for follow up. Please let him know 11/30/24 9:28 AM Alessia Lorenzo MD routed this conversation to [facility] Nurse Pool/Class December 01, 2024 Mahnaz Espitia [...] Sublingual (Nitrostat) HOSPITALIZATIONS/CONSULTS Scanned under media 09/29/2025 [facility] documented in this encounter Plan of Treatment Upcoming Encounters Date Type Department Care Team (Late st Contact Info) Description 12/23/2024 11:30 AM EDT Office Visit Cardiology, [facility] [address] [address] Mey Jose CRNP [address] [place] [address] 03/08/2025 8:00 AM EDT Office Visit Family Medicine [address] [place] [phone] Alessia Lorenzo MD [address] [place] [address] [place] [phone] Health Maintenance Due Date [...] Esophagus Surveilance 11/19/2021 11/19/2018 COVID-19 Vaccine ( - 2023-2 5 season) 2024 09/12/2021, 02/22/2021, 01/23/2021 Influenza Vaccine (FLU shot) (#1) 2024 Lipid Panel 10/15/2024 10/15/2019, 01/06/2019 GFR 04/19/2025 10/20/2024, 10/15/2019, 11/18/2018 CKD HGB USE SMARTSET 15567 10/20/202510/20, 11/18/2018 CKD PHOS USE SMARTSET [id number] 10/20/2025 10/20/2024 AAA Screening Completed 01/11/2019 HPV [...] filedocumented as of this encounter Care Teams Microfilm Camera Operator Relationship Specialty Start Date End Date Alessia Lorenzo MD [address] [place] [address] [place] [phone] PCP - General Family Medicine 11/08/24 documented as of this encounter
--- OUTSIDE RECORDS SUMMARY | 2024-12-30 08:33 | External Medical Summary | Summary of Care ---
Author Name Unknown Organization [facility] Address [address] [place] [address] Phone [phone] Care Team Providers Care Decorator Lighting Fixtures Name Role Phone Alessia Lorenzo MD Primary Care Pr [facility] Reason for Referral * Evaluate & Treat - Unlimited Visits (Within 10 days (routine)) - Authorized Specialty Diagnoses / Procedures Referred By Contact Referred To Contact Cardiovascular Medicine / Cardiology Diagnoses Stable angina (HCC) Alessia Lorenzo MD [address] [place] [address] [place] [phone] Phone: tel: fax: Referral ID Status Reason Start Date Expiration Date Visits Requested Visits Authorized [id number] Authorized Specialty Services Required 11/29/2024 1 1 Question Answer Referral Priority Within 10 days (routine) For which of the following conditions are you referring? Chronic Stable Angina/Stable Chest Pain Where should this appointment be scheduled? [facility] Comments Dr Bland recommended consultation w/r/t recent stress test Reason for Visit * Reason Onset Date Comments Referral 11/29/2024 Appointment 11/29/2024 Cardiology Encounter Details Date Type Department Care Team (Late st Contact Info) Description 11/29/2024 Telephone Family Medicine [address] [place] [phone] Alessia Lorenzo MD [address] [place] [address] [place] [phone] Referral; Appointment (Cardiology ) Allergies No known active allergiesdocumented as of this encounter (statuses as of 12/01/2024) Medications Aspirin 81 MG Oral Tablet Delayed Release Take 1 Tablet by mouth in the morning. 4 Active Nitroglycerin 0.4 MG Sublingual Tablet Sublingual (Nitrostat) Place 1 Tablet under the tongue every 5 minutes as needed for Pain, Chest. 4 Active amLODIPine Besylate 5 MG Oral Tablet (Norvasc)Indication s:Hypertension goal BP (blood pressure) < 140/90 Take 1 Tablet by mouth in the morning. 90 Tablet 1 5 Active Carvedilol 3.125 MG Oral Tablet (Coreg)Indications: Hypertension goal BP (blood pressure) < 140/90 Take 1 Tablet by mouth 2 times a day with morning and evening meals. 180 Tablet 1 5 Active Rosuvastatin Calcium 10 MG Oral Tablet (Crestor)Indication s:Mixed hyperlipidemia Take 1 Tablet by mouth in the morning. 90 Tablet 1 5 Active documented as of this encounter (statuses as of 12/01/2024) Active Problems Problem Noted Date Diagnosed Date [...] as of this encounter (statuses as of 12/01/2024) Resolved Problems Problem Noted Date Diagnosed Date Resolved Date Kidney disease, chronic, sta ge III (GFR 30-59 ml/min) 10/19/2019 08/24/2020 Overview: Per CKD protocol documented as of this encounter (statuses as of 12/01/2024) Social History Tobacco Use Types Packs/Day Years [...] as of this encounter Miscellaneous Notes * Telephone Encounter - Mahnaz Espitia CMA - 12/01/2024 11:02 AM EST Called and advised pt of message below, states understanding and agreeable to referral * Telephone Encounter - Alessia Lorenzo MD - 11/30/2024 9:26 AM EST The stress test was read as normal, but Dr Bland was concerned with the symptoms he had with themedication infusion and felt the patient would benefit from seeing Cardiology for follow up. Please let him know * Telephone Encounter - Dania Morataya OSA - 11/30/2024 9:08 AM EST I spoke to patient and scheduled Cardiology appt for 04/18/25 @ 9:00 am w/ Dr. Crisostomo at [facility]. (Pt also placed on a cancellation list). He has questions regarding the need of this appt and results of the stress test. He was never notified. Could someone call patient? Thanks so much. * Telephone Encounter - Alessia Lorenzo MD - 11/29/2024 5:08 PM EST Received message from Dr Bland regarding recent stress test. Read as no ischemia, but there weresome things that weren't quite normal. He would like to see the patient for consultation. Entered referral. documented in this encounter Plan of Treatment Upcoming Encounters Date Type Department Care Team (Late st Contact Info) Description 12/06/2024 11:20 AM EST Office Visit Family Medicine [address] [place] [address] Alessia Lorenzo MD [address] [place] [address] [place] [phone] 04/18/2025 9:00 AM EDT Office Visit Cardiology, [facility] [address] [place] [address] Tucker Crisostomo, [address] [place] [phone] Scheduled Referrals Name Type Priority Associated Diagnoses Orde r Schedule CARDIOLOGY REFERRAL OP Referral Within 10 days (routine) Stable angina (HCC) Ordered: 11/29/2024 Health Maintenance Due Date Last Done Comments [...] 10/20/2024, 10/15/2019, 11/18/2018 CKD HGB USE SMARTSET 69610 10/20/202510/20, 11/18/2018 CKD PHOS USE SMARTSET 53626 10/20/2025 10/20/2024 AAA Screening Completed 01/11/2019 HPV [...] (HCC)- Primary Other and unspecified angina pectoris documented in this encounter Care Teams Decorator Lighting Fixtures Relationship Specialty Start Date End Date Alessia Lorenzo MD [address] [place] [address] [place] [phone] PCP - General Family Medicine 11/08/24 documented as of this encounter
--- OUTSIDE RECORDS SUMMARY | 2024-12-30 08:33 | External Medical Summary | Summary of Care ---
Author Name Unknown Organization [facility] Address [address] [place] [address] Phone [phone] Care Team Providers Care Multi Spindle Operator Name Role Phone Alessia Lorenzo MD Primary Care Pr ovider Reason for Visit * Reason Onset Date Comments Medical Records Request 12/06/2024 [facility] Encounter Details Date Type Department Care Team ([facility] st Contact Info) Description 12/06/2024 Telephone Family Medicine [address] [phone] Alessia Lorenzo MD [address] [place], [place] [address] [phone] Medical Records Request ([facility]) Allergies No known active allergiesdocumented as of this encounter (statuses as of 12/06/2024) Medications Carvedilol 3.125 MG Oral Tablet (Coreg)Indications: [...] encounter Miscellaneous Notes * Telephone Encounter - Dania Morataya OSA - 12/06/2024 11:59 AM EST Medical records req was completed and faxed to [facility] Med Rec at [phone] to get Echo sent to . Copy sent to [facility]. documented in this encounter Plan of Treatment Upcoming Encounters Date Type Department Care Team (Late st Contact Info) Description 03/08/2025 8:00 AM EDT Office Visit Family Medicine [address] [place] [phone] Alessia Lorenzo MD [address] [place] [address] [place] [phone] 04/18/2025 9:00 AM EDT Office Visit Cardiology, [facility] [address] [place] [address] Tucker Crisostomo DO [address] [place] [address] Health Maintenance Due Date Last Done Comments [...] 10/20/2024, 10/15/2019, 11/18/2018 CKD HGB USE SMARTSET 38787 10/20/202510/20, 11/18/2018 CKD PHOS USE SMARTSET 00667 10/20/2025 10/20/2024 AAA Screening Completed 01/11/2019 HPV [...] filedocumented as of this encounter Care Teams Multi Spindle Operator Relationship Specialty Start Date End Date Alessia Lorenzo MD [address] [place] [address] [place] [phone] PCP - General Family Medicine 11/08/24 documented as of this encounter
--- OUTSIDE RECORDS SUMMARY | 2024-12-30 08:34 | External Medical Summary ---
Author Name Unknown Address Unknown Organization K01:[facility] - [address] [place] [address] Laboratory Report Ordering Provider Test Date Status ROCCO GARCIA BRAD 10/20/2024 09:23:23 Final Observation Date Value Abnormality Reference (Units ) Status Magnesium 10/20/2024 09:23:23 2.2 1.5-2.6 (m g/dL) Final Performing Location [facility] [address] [place] [address]
--- OUTSIDE RECORDS SUMMARY | 2024-12-30 08:34 | External Medical Summary ---
Author Name Unknown Address Unknown Organization K01:[facility] - [address] [place] [address] Laboratory Report Ordering Provider Test Date Status ROCCO GARCIA 10/20/2024 09:23:23 Final Observation Date Value Abnormality Reference (Units ) Status BUN 10/20/2024 09:23:23 19 6-20 (mg/dL) Final Creatinine 10/20/2024 09:23:23 1.4 Above high normal 0.6-1.2 (mg/dL) Final Glomerular filtration rate/1.73 sq M.predicted [Volume Rate/Area] in Serum, Plasma or Blood by Creatinine-based formula (CKD-EPI) 10/20/2024 09:23:23 55 Below low normal >=60 (mL/min) Final eGFR is calculated based on the CKD-EPI 2020 equation. Sodium 10/20/2024 09:23:23 140 135-146 (m mol/L) Final Potassium 10/20/2024 09:23:23 5.0 3.5-5.1 (m mol/L) Final Cl 10/20/2024 09:23:23 104 98-107 (mm ol/L) Final CO2 10/20/2024 09:23:23 27 22-32 (mmo l/L) Final Anion gap 10/20/2024 09:23:23 9 7-15 (mmol /L) Final Glucose 10/20/2024 09:23:23 78 70-120 (mg /dL) Final Albumin 10/20/2024 09:23:23 4.1 3.8-5.0 (g /dL) Final AST (Aspartate aminotransferase) 10/20/2024 09:23:23 20 10-50 (U/L) Final Alk Phos 10/20/2024 09:23:23 69 35-130 (U/ L) Final Bilirubin, Total 10/20/2024 09:23:23 0.5 <=1 .2 (mg/dL) Final Calcium 10/20/2024 09:23:23 9.4 8.4-10.2 ( mg/dL) Final Protein 10/20/2024 09:23:23 6.9 6.0-8.3 (g /dL) Final ALT (Alanine aminotransferase) 10/20/2024 09:23:23 17 10-50 (U/L) Final Performing Location [facility] - [facility] [address] [facility] [place] [address]
--- OUTSIDE RECORDS SUMMARY | 2024-12-30 08:34 | External Medical Summary | Summary of Care ---
Author Name Unknown Organization [facility] Address [address] [facility] [place] [address] Phone [phone] Care Team Providers Care Food And Beverage Order Clerk Name Role Phone Nieves Sarabia MD Primary Care Prov ider Encounter Details Date Type Department Care Team ([facility] Contact Info) Description 10/18/2024 Orders Only PATIENT PORTAL DO NOT DELETE THIS DEPT USED BY [place] [id number] Allergies No known active allergiesdocumented as of this encounter (statuses as of 10/18/2024) Medications amLODIPine Besylate 5 MG Oral Tablet [...] as of this encounter (statuses as of 10/18/2024) Active Problems Problem Noted Date Diagnosed Date [...] as of this encounter (statuses as of 10/18/2024) Resolved Problems Problem Noted Date Diagnosed Date Resolved Date Kidney disease, chronic, sta ge III (GFR 30-59 ml/min) 10/19/2019 08/24/2020 Overview: Per CKD protocol documented as of this encounter (statuses as of 10/18/2024) Social History Tobacco Use Types Packs/Day Years [...] 8:00 AM EST Office Visit Family Medicine [address] [phone] Alessia Lorenzo MD [address] [place] [address] [place] [phone] Health Maintenance Due Date Last Done Comments Albumin/Creatinine Ratio 1971 CKD PHOS USE SMARTSET 68387 1971 DTap/Tdap Vaccines (1 - Tdap) 1972 Pneumococcal Vaccine: 50+ Years (1 of 2 - PCV) 1972 Cologuard 1998 Colonoscopy 1998 Colorectal Cancer Screening 1998 Fecal Occult Blood Test 1998 Sigmoidoscopy 1998 Zoster Vaccines (1 of 2) 2003 Adult Wellness Visit 2019 CKD HGB USE SMARTSET 54996 11/18/2019 11/18/2018 GFR 04/14/2020 10/15/2019, 11/18/2018 Depression [...] filedocumented as of this encounter Care Teams Food And Beverage Order Clerk Relationship Specialty Start Date End Date Nieves Sarabia MD [address] [place] [address] [place] [address] PCP - General Family Medicine 10/14/24 documented as of this encounter
--- OUTSIDE RECORDS SUMMARY | 2024-12-30 08:34 | External Medical Summary | Summary of Care ---
Author Name Unknown Organization [facility] Address [address] [place] [address] Phone [phone] Care Team Providers Care Audio Installer Name Role Phone Nieves Sarabia MD Primary Care Prov ider Reason for Referral * Ancillary Services (Within 10 days (routine)) - Authorized Specialty Diagnoses / Procedures Referred By Contkai t Referred To Contact Cardiovascular Medicine Diagnoses Stable angina (HCC) Alessia Lorenzo MD [address] [place] [address] [place] [phone] Phone: tel: fax: Referral ID Status Reason Start Date Expiration Date Visits Requested Visits Authorized [id number] Authorized Ancillary Services Required 10/15/2024 999 999 Question Answer Referral Priority Within 10 days (routine) Where should this appointment be scheduled? [facility] What is the preferred location to have this test performed? [facility] How soon should this test be performed? 1 Week or Less Comments Not for rest Echo. Reason for Study (chest pain or anginal equivalent): Stable chest pain, no CAD: first imaging exam Select the preferred exam: Stress Nuclear Dobutamine: ischemia, viability, EF and wall motion Does the patient have a current EKG? Yes Does the patient have a prior history of a stent or bypass? No Lab Results Component Value Date/Time CREATININE - GE[facility]* 1.4 (H) 10/15/2019 09:55 AM Lab Results Component Value Date/Time BUN - [facility] 21 (H) 10/15/2019 09:55 AM Reason for Visit * Reason Onset Date Comments Hospital Follow-Up 10/15/2024 Encounter Details Date Type Department Care Team (Late st Contact Info) Description 10/15/2024 2:00 PM EST Office Visit Family Medicine [address] [place] [phone] Alessia Lorenzo MD [address] [place] [address] [place] [phone] Hospital discharge follow-up*; Stable angina (HCC); Hypertension goal BP (blood pressure) < 140/90 Allergies No known active allergiesdocumented as of this encounter (statuses as of 10/15/2024) Medications amLODIPine Besylate 5 MG Oral Tablet [...] as of this encounter (statuses as of 10/15/2024) Active Problems Problem Noted Date Diagnosed Date [...] as of this encounter (statuses as of 10/15/2024) Resolved Problems Problem Noted Date Diagnosed Date Resolved Date Kidney disease, chronic, sta ge III (GFR 30-59 ml/min) 10/19/2019 08/24/2020 Overview: Per CKD protocol documented as of this encounter (statuses as of 10/15/2024) Social History Tobacco Use Types Packs/Day Years [...] on file documented as of this encounter Last Filed Vital Signs Vital Sign Reading Time Taken Comments Blood Pressure 140/72 10/15/2024 1:38 PM EST Pulse 83 10/15/2024 1:38 PM EST Temperature 36.4 C (97.5 F) 10/15/2024 1:38 PM ES T Respiratory Rate - - Oxygen Saturation 95% 10/15/2024 1:38 PM EST Inhaled Oxygen Concentration - - Weight 101.1 kg (222 lb 12.8 oz) 10/15/2024 1:38 PM EST Height 175.3 cm (5' 9") 10/15/2024 1:38 PM EST Body Mass Index 32.9 10/15/2024 1:38 PM EST documented in this encounter Patient Instructions * Patient Instructions* Cattoi Denisha, Alessia Jazmyn, MD - 10/15/2024 1:41 PM EST Avoid strenuous activity until after stress test! Taking an Active Role in Your Medicines Take the time to learn about your medicine. For instance, why are you taking it? What does it do? Work with your doctor or other health care providers to get the answers you need. Talk to your pharmacist about how to take each medicine, and ask for a fact sheet on each one. Ask Questions About Your Medicine What is the name of the medicine? Why do I need to take it? When should I take it? How should I take it: with water? with food? on an empty stomach? How much do I take? What do I do if I miss a dose? What side effects could it cause and which ones should I call the doctor about? Are there any foods or medicines I should avoid while taking this medicine? Keeping track of your medications? Name of medicine: Taken for: Dose: Time(s) to take it: Take an Active Role Fill all your prescriptions at the same pharmacy. This keeps your medicine history in one place. Talk to the pharmacist. Make sure you understand how to take each medicine. Ask for a fact sheet about each one. Tell your doctor and pharmacist about all the prescription and yzik-cnw-dlyojcr medicines you take.This includes vitamins and herbal remedies. Tell your doctor and pharmacist if you have any medical conditions or allergies to any medicine or food, or if you are or . Keep a list of all your medicines. Use the sample to the right as a guide for the type of information needed. 0924-2989 [place] [address]. All rights reserved. This information is not intended as a substitute for professional medical care. Always follow your healthcare professional's instructions. documented in this encounter Progress Notes * Alessia Lorenzo MD - 10/15/2024 1:40 PM EST SUBJECTIVE: Mukund Camacho is a 69 year old male. Chief Complaint Patient presents with Hospital Follow-Up Recent Admission: Patient was recently admitted to [facility] on 10/08. The date of discharge was 10/09 for chest pain and BP. Discharge report received and reviewed. About 2 weeks ago, did shovel snow. 2 days later, had a lot of chest pressure. Lasted a few minutes at a time. The next day, came back worse. Called PCP, directed to the hospital. BP was very high (213/104) on admission. Got an echo and EKGs. Recommended outpatient stress. Started coreg and amlodipine; started statin and asa. HPI: Still having some chest pains off and on, mostly with activity. Lasted a few minutes. Less severe than the initial. Sometimes gets the sensation after he eats too. Did go sweep the snow off the car a few days later and it recurred. Hasn't used the nitro at all. BP remains elevated today. At home, getting 140s/80s mostly with one cuff, 110s systolic with the other. Patient Active Problem List Diagnosis Tobacco use disorder Lung nodule < 6cm on CT Yepez's esophagus without dysplasia Esophageal spasm Anxiety Adjustment insomnia Dysfunction of both eustachian tubes Chronic maxillary sinusitis Deviated septum Mixed hyperlipidemia Lipoma of back Stage 3a chronic kidney disease Current Outpatient Medications Medication Sig Dispense Refill amLODIPine Besylate 5 MG Oral Tablet (Norvasc) Take 1 Tablet by mouth in the morning. Aspirin 81 MG Oral Tablet Delayed Release Take 1 Tablet by mouth in the morning. Carvedilol 3.125 MG Oral Tablet (Coreg) Take 1 Tablet by mouth 2 times a day with morning and evening meals. Nitroglycerin 0.4 MG Sublingual Tablet Sublingual (Nitrostat) Place 1 Tablet under the tongue every5 minutes as needed for Pain, Chest. Rosuvastatin Calcium 10 MG Oral Tablet (Crestor) Take 1 Tablet by mouth in the morning. No current facility-administered medications for this visit. Current and discharge medications have been reconciled. Review of patient's allergies indicates: No Known Allergies OBJECTIVE: BP 140/72 | Pulse 83 | Temp 97.5 F (36.4 C) (Tympanic) | Ht 5' 9" (1.753 m) | Wt 222 lb 12.8 oz(101.1 kg) | SpO2 95% | BMI 32.90 kg/m | BSA 2.22 m PHYSICAL EXAM: BP 140/72 | Pulse 83 | Temp 97.5 F (36.4 C) (Tympanic) | Ht 5' 9" (1.753 m) | Wt 222 lb 12.8 oz(101.1 kg) | SpO2 95% | BMI 32.90 kg/m | BSA 2.22 m General: alert, healthy, and no distress Head: Normocephalic Ears: External ears normal, Canals clear, TM's Normal Oropharynx: no exudate and no erythema Neck: supple, no adenopathy, thyroid normal size, non-tender, without nodularity Heart: regular rate & rhythm, no murmur, and no gallops Lungs: lungs clear to auscultation Skin: no rashes or significant lesions Rate: 72 bpm, Rhythm: Normal sinus rhythm, Complexes: low voltage, P Waves: Normal, ST Segment: Normal, T Waves: Normal. ASSESSMENT: Hospital discharge follow-up (Primary) - DISCH MED RECON CUR MED LIS Stable angina (HCC) - CAD IMAGING REFERRAL OP - EKG; Future; Expected date: 10/15/2024 - CBC; Future; Expected date: 10/15/2024 - COMPREHENSIVE METABOLIC PANEL; Future; Expected date: 10/15/2024 Continues to have chest pains off and on. Schedule outpatient stress. Stressed importance of continuing his meds including statin and BP meds to protect the heart. Avoid strenuous activity (shoveling, etc) at least until after stress test Hypertension goal BP (blood pressure) < 140/90 - CBC; Future; Expected date: 10/15/2024 - COMPREHENSIVE METABOLIC PANEL; Future; Expected date: 10/15/2024 - MAGNESIUM; Future; Expected date: 10/15/2024 - PHOSPHORUS; Future; Expected date: 10/15/2024 BP borderline high on recheck. Discussed continuing meds, watching with home cuff. If getting numbers > 140 consistently, to call and may need to increase meds. PLAN: Continue present medication(s): asa, crestor, coreg, norvasc Follow up in 3 month(s). I spent a total of 30-39 minutes (exact time 33 mins) minutes on the date of service in preparation, delivery, and documentation of the care provided to Mukund Camacho excluding any time spent in performance of separately billed services. Alessia Montana MD documented in this encounter Nursing Notes * Mahnaz Espitia CMA - 10/15/2024 1:44 PM EST Pt went in for chest pain/tightness after shoveling snow. Reports he had a lot of cardiac studies done. Pt reports chest pain/tightness has come back a couple of time since D/c, happens when doing strenuous activity lasted about 5 minutes then went away. documented in this encounter Plan of Treatment Scheduled Orders Name Type Priority Associated Diagnoses Orde r Schedule EKG EKG Routine Stable angina (HCC) Expected: 10/15/2024 (Approximate), Expires: 11/15/2025 CBC Lab Routine Stable angina (HCC) Hypertension goal BP (blood pressure) < 140/90 Expected: 10/15/2024 (Approximate), Expires: 10/15/2025 COMPREHENSIVE METABOLIC PANEL Lab Routine Stable angina (HCC) Hypertension goal BP (blood pressure) < 140/90 Expected: 10/15/2024 (Approximate), Expires: 11/15/2025 MAGNESIUM Lab Routine Hypertension goal BP (blood pressure) < 140/90 Expected: 10/15/2024 (Approximate), Expires: 10/15/2025 PHOSPHORUS Lab Routine Hypertension goal BP (blood pressure) < 140/90 Expected: 10/15/2024 (Approximate), Expires: 10/15/2025 Scheduled Referrals Name Type Priority Associated Diagnoses Orde r Schedule CAD IMAGING REFERRAL OP Referral Within 10 days (routine) Stable angina (HCC) Ordered: 10/15/2024 Health Maintenance Due Date Last Done Comments Albumin/Creatinine Ratio 1971 CKD PHOS USE SMARTSET 27205 1971 DTap/Tdap Vaccines (1 - Tdap) 1972 Pneumococcal Vaccine: 50+ Years (1 of 2 - PCV) 1972 Cologuard 1998 Colonoscopy 1998 Colorectal Cancer Screening 1998 Fecal Occult Blood Test 1998 Sigmoidoscopy 1998 Zoster Vaccines (1 of 2) 2003 Adult Wellness Visit 2019 CKD HGB USE SMARTSET 92588 11/18/2019 11/18/2018 GFR 04/14/2020 10/15/2019, 11/18/2018 Depression [...] as of this encounter Visit Diagnoses Diagnosis Hospital discharge follow-up- Primary Other follow-up examination Stable angina (HCC) Other and unspecified angina pectoris Hypertension goal BP (blood pressure) < 140/90 Unspecified essential hypertension documented in this encounter Care Teams Audio Installer Relationship Specialty Start Date End Date Nieves Sarabia MD [address] [place] [address] [place] [phone] PCP - General Family Medicine 10/14/24 documented as of this encounter
--- OUTSIDE RECORDS SUMMARY | 2024-12-30 08:34 | External Medical Summary | Summary of Care ---
Author Name Unknown Organization [facility] Address [address] [place] [address] Phone [phone] Care Team Providers Care Exercise Instruct Name Role Phone Nieves Sarabia MD Primary Care Prov ider Reason for Referral * Precert (Within 10 days (routine)) - Authorized Specialty Diagnoses / Procedures Referred By Contac t Referred To Contact Radiology Diagnoses Stable angina (HCC) Tobacco use disorder Mixed hyperlipidemia Procedures NM MYOCARD PERF IMG SPECT MULT STUDIES WITH PHARM INTERV Rai Hanna MD [address] [place] [address] Phone: tel: fax: Referral ID Status Reason Start Date Expiration Date V isits Requested Visits Authorized [id number] Authorized Precert 10/22/2024 999 [id number] Encounter Details Date Type Department Care Team (Late st Contact Info) Description 10/15/2024 Orders Only Cardiology, [facility] [address] [phone] Rai Hanna MD [address] [place] [address] Stable angina (HCC)*; Tobacco use disorder; Mixed hyperlipidemia Allergies No known active allergiesdocumented as of [...] on file documented as of this encounter Progress Notes * Kitty Bender, TECH - 10/15/2024 4:17 PM EST Images from the original note were not included. CAD Imaging Referral Note Mukund Camacho is a 69 year old male who was referred by Dr. Alessia Denny for evaluation ofstable angina. Reviewing Manager Fraud: Dr. Rai Hanna Orders placed: Pharm Nuclear Stress test Test location: [facility] Referral priority: 1 week or less From Dr. Bernardo Denny's Progress Note on 10/15/2023: Recent Admission: Patient was recently admitted to [facility] on 10/08. The date of discharge was 10/09 for chest pain and BP. Discharge report received and reviewed. About 2 weeks ago, did shovel snow. 2 days later, had a lot of chest pressure. Lasted a few minutesat a time. The next day, came back [...] No current facility-administered medications for this visit. The ASCVD Risk score (Zeke NUÑEZ, et al., 2019) failed to calculate for the following reasons: Cannot find a previous HDL lab Cannot find a previous total cholesterol lab Cardiac Studies: EKG 10/15/2024 (Newly acquired, unconfirmed) Echocardiogram 09/2024 - [facility] (record not available in Epic chart, see [facility] database) Kitty Bender MS, [facility] [place], Cardiology Imaging Program documented in this encounter Plan of Treatment Upcoming Encounters Date Type Department Care Team (Late st Contact Info) Description 11/26/2024 8:00 AM EST Office Visit Family Medicine [address] [place] [address] Alessia Lorenzo MD [address] [place] [address] [place] [phone] Scheduled Orders Name Type Priority Associated Diagnoses Orde r Schedule NM MYOCARD PERF IMG SPECT MULT STUDIES WITH PHARM INTERV Cardiology Routine Stable angina (HCC) Tobacco use disorder Mixed hyperlipidemia Expected: 10/22/2024 (Approximate), Expires: 11/15/2025 Health Maintenance Due Date Last Done Comments Albumin/Creatinine Ratio 1971 CKD PHOS USE SMARTSET 86715 1971 DTap/Tdap Vaccines (1 - Tdap) 1972 Pneumococcal Vaccine: 50+ Years (1 of 2 - PCV) 1972 Cologuard 1998 Colonoscopy 1998 Colorectal Cancer Screening 1998 Fecal Occult Blood Test 1998 Sigmoidoscopy 1998 Zoster Vaccines (1 of 2) 2003 Adult Wellness Visit 2019 CKD HGB USE SMARTSET 53020 11/18/2019 11/18/2018 GFR 04/14/2020 10/15/2019, 11/18/2018 Depression [...] (HCC)- Primary Other and unspecified angina pectoris Tobacco use disorder Mixed hyperlipidemia documented in this encounter Care Teams Exercise Instruct Relationship Specialty Start Date End Date Nieves Sarabia MD [address] [place] [address] [place] [phone] PCP - General Family Medicine 10/14/24 documented as of this encounter
--- OUTSIDE RECORDS SUMMARY | 2024-12-30 08:34 | External Medical Summary ---
Author Name Unknown Address Unknown Organization K01:[facility] - [address] [place] [address] Laboratory Report Ordering Provider Test Date Status ROCCO GARCIA 10/20/2024 09:23:23 Final Observation Date Value Abnormality Reference (Units ) Status WBC, Total 10/20/2024 09:23:23 9.22 4.00-10.80 (K/uL) Final RBC 10/20/2024 09:23:23 5.05 4.50-5.25 (M/uL) Final Hemoglobin 10/20/2024 09:23:23 14.8 14.0-16.8 (g/dL) Final HCT 10/20/2024 09:23:23 45.2 40.0-48.4 (%) Final MCV 10/20/2024 09:23:23 89.5 82.0-99.5 (fL) Final MCH 10/20/2024 09:23:23 29.3 27.0-34.0 (pg) Final MCHC 10/20/2024 09:23:23 32.7 32.0-36.0 (g/dL) Final RDW 10/20/2024 09:23:23 12.5 11.5-15.5 (%) Final Platelets 10/20/2024 09:23:23 231 140-400 (K/uL) Final MPV 10/20/2024 09:23:23 11.1 6.6-11.1 (fL) Final Nucleated erythrocytes/100 leukocytes [Ratio] in Blood by Automated count 10/20/2024 09:23:23 0 <=0 (/100 WBCs) Final Performing Location [facility] - [address] [place] [address]
--- OUTSIDE RECORDS SUMMARY | 2024-12-30 08:34 | External Medical Summary | Summary of Care ---
Author Name Unknown Organization [facility] Address [address] [place] [address] Phone [phone] Care Team Providers Care Demographic Analyst Name Role Phone Nieves Sarabia MD Primary Care Prov ider Reason for Referral * Ancillary Services (Within 10 days (routine)) - Authorized Specialty Diagnoses / Procedures Referred By Contkai t Referred To Contact Cardiovascular Medicine Diagnoses Stable angina (HCC) Alessia Lorenzo MD [address] [place] [address] [place] [phone] Phone: tel: fax: Referral ID Status Reason Start Date Expiration Date Visits Requested Visits Authorized [id number] Authorized Ancillary Services Required 10/15/2024 999 999 [...] 2:00 PM EST Office Visit Family Medicine [address] [place] [address] Alessia Lorenzo MD [address] [place] [address] [place] [phone] Hospital discharge follow-up*; Stable [...] and pharmacist about all the prescription and banx-mus-gelceso medicines you take.This includes vitamins and herbal remedies. Tell your doctor and pharmacist if you have any medical conditions or allergies to any medicine or food, or if you are or . Keep a list of all your medicines. Use the sample to the right as a guide for the type of information needed. 6118-8467 [place] [address]. All rights reserved. This information is not intended as a substitute for professional medical care. Always follow your healthcare professional's instructions. documented in this encounter Progress Notes * Alessia Lorenzo MD - 10/15/2024 1:40 PM EST SUBJECTIVE: Mukund Camacho is a 69 year old male. Chief Complaint Patient presents with Hospital Follow-Up Recent Admission: Patient was recently admitted to [facility] on 10/08. The date of discharge [...] asa, crestor, coreg, norvasc Follow up in 6 weeks. I spent a total of 30-39 minutes [...] 8:00 AM EST Office Visit Family Medicine [address] [place] [address] Alessia Lorenzo MD [address] [place] [address] [place] [phone] Scheduled Orders Name Type Priority Associated Diagnoses [...] Albumin/Creatinine Ratio 1971 CKD PHOS USE SMARTSET 97701 1971 DTap/Tdap Vaccines (1 - Tdap) 1972 Pneumococcal Vaccine: 50+ Years (1 of 2 - PCV) 1972 Cologuard 1998 Colonoscopy 1998 Colorectal Cancer Screening 1998 Fecal Occult Blood Test 1998 Sigmoidoscopy 1998 Zoster Vaccines (1 of 2) 2003 Adult Wellness Visit 2019 CKD HGB USE SMARTSET 62806 11/18/2019 11/18/2018 GFR 04/14/2020 10/15/2019, 11/18/2018 Depression [...] hypertension documented in this encounter Care Teams Demographic Analyst Relationship Specialty Start Date End Date Nieves Sarabia MD [address] [place] [address] [place] [phone] PCP - General Family Medicine 10/14/24 documented as of this encounter
--- OUTSIDE RECORDS SUMMARY | 2024-12-30 08:34 | External Medical Summary | Summary of Care ---
Author Name Unknown Organization [facility] Address [address] [place] [address] Phone [phone] Care Team Providers Care Doughmaker Name Role Phone Nieves Sarabia MD Primary Care Prov ider Reason for Referral * Ancillary Services (Within 10 days (routine)) - Authorized Specialty Diagnoses / Procedures Referred By Contkai t Referred To Contact Cardiovascular Medicine Diagnoses Stable angina (HCC) Alessia Lorenzo MD [address] [place] [address] [place] [phone] Phone: tel: fax: Referral ID Status Reason Start Date Expiration Date Visits Requested Visits Authorized [id number] Authorized Ancillary Services Required 10/15/[phone] [...] 2:00 PM EST Office Visit Family Medicine [address] [place] [phone] Alessia Lorenzo MD [address] [place] [address] [place] [phone] Hospital discharge follow-up*; Stable [...] and pharmacist about all the prescription and fhki-abb-cjdsraf medicines you take.This includes vitamins and herbal remedies. Tell your doctor and pharmacist if you have any medical conditions or allergies to any medicine or food, or if you are or . Keep a list of all your medicines. Use the sample to the right as a guide for the type of information needed. 0042-4056 [place] [address]. All rights reserved. This information is not intended as a substitute for professional medical care. Always follow your healthcare professional's instructions. documented in this encounter Progress Notes * Alessia Lorenzo MD - 10/15/2024 1:40 PM EST SUBJECTIVE: Mukund Camacho is a 69 year old male. Chief Complaint Patient presents with Hospital Follow-Up Recent Admission: Patient was recently admitted to [facility] on 10/08. The date of [...] Albumin/Creatinine Ratio 1971 CKD PHOS USE SMARTSET 73228 1971 DTap/Tdap Vaccines (1 - Tdap) 1972 Pneumococcal Vaccine: 50+ Years (1 of 2 - PCV) 1972 Cologuard 1998 Colonoscopy 1998 Colorectal Cancer Screening 1998 Fecal Occult Blood Test 1998 Sigmoidoscopy 1998 Zoster Vaccines (1 of 2) 2003 Adult Wellness Visit 2019 CKD HGB USE SMARTSET 58141 11/18/2019 11/18/2018 GFR 04/14/2020 10/15/2019, 11/18/2018 Depression [...] hypertension documented in this encounter Care Teams Doughmaker Relationship Specialty Start Date End Date Nieves Sarabia MD [address] [place] [address] [place] [phone] PCP - General Family Medicine 10/14/24 documented as of this encounter
--- OUTSIDE RECORDS SUMMARY | 2024-12-30 08:34 | External Medical Summary ---
Author Name Unknown Address Unknown Organization K01:[facility] - [address] [place] [address] Laboratory Report Ordering Provider Test Date Status ROCCO GARCIA BRAD 10/20/2024 09:23:23 Final Observation Date Value Abnormality Reference (Units ) Status Phosphate 10/20/2024 09:23:23 3.4 2.5-4.8 (m g/dL) Final Performing Location [facility] - [address] [place] [address]
--- NOTE | 2024-12-30 09:21 | Post Anesthesia Assessment ---
Date of Service December 30, 2024 Post Sedation Assessment Vital Signs Temp Pulse Resp BP Pulse Ox O2 Del Method 12/30/24 07:04 36.6 C 69 17 149/76 H 98 Room Air Recovery Score Respiration: Deep Breath/Cough Circulation: +/-20% PreAnes Value Consciousness: Arouseable (by name) Oxygen Saturation: O2 needed for >90% Discharge Sedation Level of Care: Phase I Post Sedation Plan On clinical assessment, the patient appears to have tolerated the sedation without complications. Patient is recovering as anticipated. Patient will continue to be monitored by nursing and may be discharged when sedation discharge criteria are met per below protocol. Upon Completions of procedure up to 15 minutes continue every 5 minute vital signs and the P.A.R. score; then discharge to a Phase I or Fast Track to Phase II per the following guidelines: * Discharge Patient to appropriate Phase II area if PAR is 8 or greater or return to pre- procedure baseline. The post - procedure orders will be as directed. * If PAR score is less than 8 or not return to pre-procedure baseline then patient will follow Phase I monitoring till PAR is reached for Phase II. The Phase I may be done in procedure room or may call to secure a Phase I area. * If naloxone or flumazenil are used for reversal, hold in Phase I for continued monitoring from when last reversal dose was given for a minimum of 60 minutes or longer pending the nurse and/or physician discretion of patient condition before discharge to Phase II. Please call the Sedation Physician to re-evaluate and complete post-note for discharge to Phase II area. Do NOT discharge from procedure sedation or Phase 1 until post- sedation evaluation note is complete by procedure /sedation MD Sedation Discharge Instructions to be given to the patient at discharge to home.
--- NOTE | 2024-12-30 09:35 | Cardiac Catheterization ---
Cardiac Cath Procedure Full Procedure Date December 30, 2024 Pre-Procedure Diagnosis Pre-Procedure Diagnosis: Angina AUC Score AUC Score: 7 Post-Procedure Diagnosis Post-Procedure Diagnosis: Severe CAD and Normal Intracardiac Pressures Procedure(s) Performed Procedure(s) Performed: Coronary Angiography and Left Heart Cath [employer] Tucker Crisostomo DO Psychologist Clinical(s) Hawa Jackson RTR Estimated Blood Loss Estimated Blood Loss: 5cc Medication(s) Medication(s): Fentanyl, Heparin, Lidocaine 1%, Nicardipine, Nitroglycerin and Versed Summary of Findings Severe proximal and distal RCA stenosis. 100% proximal RPL [employer] fills via left to right collaterals. Hemodynamics Rest Ao:: 104/57/76 Final Ao: 114/55/78 LV: 116/6/9 Recommendations Recommendations: PCI without planned CABG Radiation Exposure (mGy) 1033 Contrast (mls) 40 Fluids (cc crystalloids) Fluids (cc crystalloids): 0 Drains Drains: N/A Anesthesia Moderate sedation. Start 0846. End 0905. Sedation monitor: Siva ZIMMER Procedural Complication(s) None Disposition Patient remained in [facility] for PCI of RCA. I attest to the content of the Intraoperative Record and any orders documented therein. Any exceptions are noted below. ACC Data: [facility] Cardiac Status Clinical evaluation leading to the procedure 69-year-old male presents with exertional angina relieved with sublingual nitroglycerin. Progressive symptoms noted over the past 8 weeks. CAD Presenation: Unstable angina Anginal Classification: CCS III Heart Failure: No Coronary Anatomy Dominant: Right Left Main (% Stenosis): Normal LAD (% Stenosis): Proximal (10%) and Mid (Long tubular stenosis at bifurcation of diagonal branch vessel, 30-40%) D1 (% Stenosis): Mid (20%, large vessel) Circumflex (% Stenosis): Proximal (Luminal irregularities, 10%) OM1 (% Stenosis): Mid (40%Involving proximal portion of inferior subbranch) RCA (% Stenosis): Proximal (80%), Mid (40%) and Distal (95%) R PDA (% Stenosis): Mid (50%, Small vessel) R PL1 (% Stenosis): Distal (10%) R PL2 (% Stenosis): Proximal (100%, fills via left to right collaterals) Diagnostic Physicians Name: Tucker Crisostomo DO Closure Device Percutaneous Entry Location: Radial Closure Device: Radial Band Recommendations: PCI without planned CABG Intraprocedure Events Significant Disection: No Perforation: No
--- NOTE | 2024-12-30 10:04 | Post Anesthesia Assessment ---
Date of Service December 30, 2024 Post Sedation Assessment Vital Signs Temp Pulse Resp BP Pulse Ox O2 Del Method 12/30/24 07:04 36.6 C 69 17 149/76 H 98 Room Air Recovery Score Activity: Moves 4 extremities Respiration: Deep Breath/Cough Circulation: +/-20% PreAnes Value Consciousness: Arouseable (by name) Oxygen Saturation: O2 needed for >90% Discharge Sedation Level of Care: Fast Track Phase II Post Sedation Plan On clinical assessment, the patient appears to have tolerated the sedation without complications. Patient is recovering as anticipated. Patient will continue to be monitored by nursing and may be discharged when sedation discharge criteria are met per below protocol. Upon Completions of procedure up to 15 minutes continue every 5 minute vital signs and the P.A.R. score; then discharge to a Phase I or Fast Track to Phase II per the following guidelines: * Discharge Patient to appropriate Phase II area if PAR is 8 or greater or return to pre- procedure baseline. The post - procedure orders will be as directed. * If PAR score is less than 8 or not return to pre-procedure baseline then patient will follow Phase I monitoring till PAR is reached for Phase II. The Phase I may be done in procedure room or may call to secure a Phase I area. * If naloxone or flumazenil are used for reversal, hold in Phase I for continued monitoring from when last reversal dose was given for a minimum of 60 minutes or longer pending the nurse and/or physician discretion of patient condition before discharge to Phase II. Please call the Sedation Physician to re-evaluate and complete post-note for discharge to Phase II area. Do NOT discharge from procedure sedation or Phase 1 until post- sedation evaluation note is complete by procedure /sedation MD Sedation Discharge Instructions to be given to the patient at discharge to home. [facility] [place] Codes (Charges) Indication for Procedure Indication for procedure: angina positive stress test Sedation/Anesthesia Procedure 1: Sedation/Anesthesia: 60139 Mod Sedation by the same physician;Init15 Min Child Age 5 & Up (Initial 15 minutes, start 0905) Total Sedation Time (minutes): 60 Procedure 2: Sedation/Anesthesia: 32633 Mod Sedation by the same physician; Ea [id number] Minutes (Additional 45 minutes, end time 1005) Total Sedation Time (minutes): 60
[2024-12-30] MEDS: LIDOCAINE 1% LOCAL 20 ML VIAL ONE (10:05)
[2024-12-30] MEDS: MIDAZOLAM HCL 1 MG/ML 2ML VIAL ONE ×2 (10:05→10:08)
[2024-12-30] MEDS: niCARdipine 2,000 MCG/20 ML SYR ONE (10:06)
[2024-12-30] MEDS: HEPARIN (PORCINE) 1000 UNIT/ML 10 ML (CATH LAB USE ONLY) ONE ×2 (10:06→14:04)
[2024-12-30] MEDS: fentaNYL citrate PF 100 MCG/2 ML VIAL ONE (10:06)
[2024-12-30] MEDS: NITROGLYCERIN/D5W 100MCG/ML 20ML SYR ONE (10:07)
[2024-12-30] MEDS: OPTIRAY 350 ONE (10:07)
[2024-12-30] MEDS: TICAGRELOR 90 MG TAB ONE (10:08)
[2024-12-30] MEDS: IODIXANOL (VISIPAQUE) 320 MG/ML 100ML IV ONE (10:11)
[2024-12-30] MEDS: amLODIPine BESYLATE 5 MG TAB PO SCH (14:34)
--- NOTE | 2024-12-30 14:38 | Electrocardiogram Report ---
Test Reason : Blood Pressure : */* mmHG Vent. Rate : 60 BPM Atrial Rate : 60 BPM P-R Int : 180 ms QRS Dur : 84 ms QT Int : 420 ms P-R-T Axes : 3 -13 -13 degrees QTcB Int : 420 ms Normal sinus rhythm When compared with ECG of 09-Oct-2024 05:38, Non-specific change in ST segment in Anterior leads Nonspecific T wave abnormality now evident in Anterior leads Confirmed by Dariel Marcus ([id number]) on 12/30/2024 2:37:42 PM Referred By: Jenna Rosado Confirmed By: Dariel Marcus
[2024-12-30] MEDS: carvediloL 3.125 MG TAB PO SCH (16:14)
[2024-12-30] MEDS: hydrOXYzine HCl 25 MG TAB PO SCH (19:53)
[2024-12-31] MEDS: ASPIRIN 81 MG ECTAB PO SCH (08:12)
[2024-12-31] MEDS: ROSUVASTATIN CALCIUM 10 MG TAB PO SCH (08:13)
[2024-12-31] MEDS: TICAGRELOR 90 MG TAB PO SCH (08:17)
[2024-12-31] MEDS ORDERED: ASPIRIN 81 MG ECTAB PO SCH (09:00)
[2024-12-31] MEDS: amLODIPine BESYLATE 5 MG TAB PO SCH (09:25)
[2024-12-31] MEDS: ROSUVASTATIN CALCIUM 20 MG TAB PO SCH (09:25)
[2024-12-31 10:46] VITALS: BP 124/75; RESP 17; TEMP 97.3; O2SAT 97
[2024-12-31 11:25] LABS: BUN Creatinine Ratio 13.9 (10-20); Blood Urea Nitrogen 19 mg/dl (6-23); Carbon Dioxide 30 mmol/L (21-32); Chloride 105 mmol/L (98-107); Creatinine Clr Calc Pharmacy 57.2 ml/min; Glucose 103 mg/dl (70-99(Fasting))
--- NOTE | 2024-12-31 12:39 | Cardiology Progress Note ---
Date of Service December 31, 2024 Assessment & Plan (1) Exertional angina: (2) S/P right coronary artery (RCA) stent placement: (3) Dyslipidemia: (4) Tobacco use: Plan 69-year-old male status post drug-eluting stent implantation to the proximal and distal right coronary artery. Discussed importance of continuing dual antiplatelet therapy for minimum of 6 months post percutaneous intervention. Titrate rosuvastatin to 20 mg daily. Continue other cardiovascular medications as previously ordered. Post-cardiac catheterization activity restrictions reviewed. Outpatient cardiology follow-up in 2 to 4 weeks. Admission and Anticipated Discharge Date Admission Date: December 30, 2024 Subjective 69-year-old male presented for outpatient cardiac catheterization 12/30/2024. Coronary angiography revealing severe RCA disease. Patient received 2 drug- eluting stent to the proximal and distal RCA without complication. Resting comfortably overnight. No chest discomfort or unusual shortness of breath. Sinus rhythm on telemetry. Review of Systems Review of Systems: All systems reviewed & are unremarkable except as noted in Subjective Physical Exam Constitutional: well developed and well nourished; no acute distress Respiratory: normal respiratory effort; no respiratory distress Auscultation: no crackles, no rales, no rhonchi and no wheezes Cardiovascular: Rate/Rhythm: regular rate and regular rhythm Heart Sounds: normal S1 and normal S2; no murmur Vessels: femoral pulses present and radial pulses present (No ecchymosis or hematoma.); no JVD Extremities: no edema Neurologic: CN's II-XI intact bilaterally and deep tendon reflexes 2+ bilaterally; no focal motor deficits Results & Data Vital Signs (Past 12 Hours) Vital Signs Temp Pulse Pulse Resp BP Pulse Ox O2 Del Method 12/31/24 10:45 36.3 C L 57 L 17 124/75 97 Room Air 12/31/24 09:24 126/73 12/31/24 07:51 36.8 C 66 18 134/74 96 Room Air 12/31/24 07:19 60 12/31/24 03:55 36.3 C L 18 129/79 94 Room Air Laboratory Results Comprehensive Metabolic Panel 12/31/24 Range/Units 09:59 Sodium TNP Potassium TNP Chloride 105 (98-107) mmol/L Carbon Dioxide 30 (21-32) mmol/L BUN 19 (6-23) mg/dl Creatinine 1.37 (0.6-1.4) mg/dl Glucose 103 H (70-99(Fasting)) mg/dl Calcium 9.0 (8.6-10.3) mg/dl Intake and Output 12/30/24 12/31/24 12/31/24 22:59 06:59 14:59 Intake Total 340 / 700 120 / 700 360 / 360 Balance 340 / 700 120 / 700 360 / 360 Intake: Oral 340 / 700 120 / 700 360 / 360 Other: # Unmeasured Voids 4 Weight 98.5 kg Weight Measurement Method Built in [facility]
--- NOTE | 2024-12-31 12:47 | Discharge Summary ---
Date of Service December 31, 2024 Admission HPI Per Admitting Provider 69-year-old male with history of chest discomfort dating back to October 08. Evaluated in the emergency department and discharged after ACS ruled out. Follow-up Lexiscan nuclear stress test with anginal symptoms, possible balanced ischemia. Referred for cardiac catheterization for further evaluation. Principal Diagnosis CAD with progressive exertional angina S/P LIZ x2 to RCA Discharge Exam Constitutional well developed and well nourished; no acute distress ENMT Mallampati Class: III Respiratory normal respiratory effort; no respiratory distress Auscultation: no crackles, no rales, no rhonchi and no wheezes Cardiovascular Rate/Rhythm: regular rate and regular rhythm Heart Sounds: normal S1 and normal S2; no murmur Vessels: femoral pulses present and radial pulses present (No ecchymosis or hematoma.); no JVD Extremities: no edema Neurologic CN's II-XI intact bilaterally and deep tendon reflexes 2+ bilaterally; no focal motor deficits Discharge Data Allergies Allergy/AdvReac Type Severity Reaction Status Date / Time No Known Allergies Allergy Verified 12/30/24 07:13 Procedures Performed Operation Date: 12/30/24 08:00 Actual Procedures p Cineradiography w/Routine Exam - Tucker Crisostomo DO p Cath, Left with Cors and Vent - Tucker Crisostomo, DO s Drug Eluting Stent SGl Vessel - Hema Merino MD, PhD Ordered Studies 12/30/24 06:41 CL Cath Imgs for PACS use only Routine Hospital Course (1) Exertional angina: (2) S/P right coronary artery (RCA) stent placement: (3) Dyslipidemia: (4) Tobacco use: Plan 69-year-old male status post drug-eluting stent implantation to the proximal and distal right coronary artery. Discussed importance of continuing dual antiplatelet therapy for minimum of 6 months post percutaneous intervention. Titrate rosuvastatin to 20 mg daily. Continue other cardiovascular medications as previously ordered. Post-cardiac catheterization activity restrictions reviewed. Outpatient cardiology follow-up in 2 to 4 weeks. Total Time Total Time Spent Total Time Spent (In Minutes): 35 Discharge Plan Discharge Items Patient Disposition: Home - Self-Care Reason For Visit: Chest Pain, Abnormal Stress Discharge Diagnosis: Angina s/p cardiac catheterization with stenting of the right coronary artery Condition on Discharge: Good Activity: Per Instructions section Non-emergency contact: Inspector And Clipper Call non-emergency contact if: you have any medication questions and your pain is unusual for you Follow-up/Referrals: Nieves Nuñez MD [Primary Care Provider] - Diet: Heart Healthy Addtl Attending Provider Instructions: ACTIVITY RECOMMENDATIONS: It is common to feel weak and fatigue for a few days. * Do not drive or operate any motorized equipment for the next three days. * Limit stair usage (2 or 3 trips a day only) for the next three days. * Do not lift anything heavier than 10 pounds for the next three days. * Do not engage in vigorous exercise or any sports for the next five days. * You may shower the day after your procedure, but do not immerse the area for three days. Cleanse the site gently with soap and water. SPECIAL CARE INSTRUCTIONS: * You may replace the pressure dressing or band-aid the morning after the procedure. * After your procedure, it is normal to have a small bruise or small lump at the site. Examine your site daily for any change in the bruise or lump, redness, swelling, drainage or numbness. Notify your doctor if any change. BLEEDING: * If there is a small amount of bleeding at the site, lie down and apply firm pressure with a clean cloth for ten minutes. When the bleeding stops, lie quietly keeping the procedure limb straight for six hours. Notify your doctor as soon as possible. * If the bleeding does not stop after ten minutes or if there is a large amount of bleeding or spurting, call 911 immediately. Continue to lie down and hold firm pressure until help arrives. SKIN IRRITATION: * You may experience some redness and/or swelling in the area where radiation was administered. If any skin irritation occurs, please contact your family physician. FOLLOW UP VISIT: Keep any scheduled doctor appointments. Pending Studies at Discharge: No Stand-Alone Forms: My [employer], Smoking Cessation Medications and DC Order Prescriptions: New rosuvastatin 20 mg Tablet 20 mg PO QAM Qty: 90 4RF Brilinta 90 mg Tablet 90 mg PO BID Qty: 180 4RF amlodipine [Norvasc] 5 mg Tablet 10 mg PO DAILY Qty: 90 4RF Continued hydroxyzine HCl 25 mg Tablet 25 mg PO HS carvedilol 3.125 mg Tablet 3.125 mg PO BIDM Qty: 60 0RF nitroglycerin [Nitrostat] 0.4 mg Tablet, Sublingual 0.4 mg sublingual UD PRN (Reason: chest pain) Qty: 20 0RF aspirin 81 mg Tablet,Delayed Release (Dr/Ec) 81 mg PO DAILY Qty: 30 0RF Discontinued rosuvastatin 10 mg Tablet 10 mg PO QAM Qty: 30 0RF amlodipine 5 mg tablet 5 mg PO DAILY Qty: 30 0RF Discharge Orders: Discharge Order (Routine); Ordered 12/31/24 Ordered By: Tucker Crisostomo Admission Data Admit Date/Time: 12/30/24 10:21 Attending Provider: Tucker Crisostomo Admit Provider: Tucker Crisostomo Primary Care Provider: Nieves Nuñez
[2024-12-31 13:21] LABS: Potassium 4.2 mmol/L (3.5-5.1)
[2024-12-31 15:00] VITALS: PULSE 57
--- NOTE | 2024-12-31 16:27 | Cardiac Catheterization ---
[facility] Data: Mailroom Coordinator Cardiac Status Clinical evaluation leading to the procedure CAD Presenation: Unstable angina Anginal Classification: CCS III Heart Failure: No Cardiogenic Shock within 24 Hours: No Cardiac Arrest within 24 Hours: No Imaging Studies Past 6 Months: Yes (Diagnostic cardiac cath) Coronary Anatomy Left Main (% Stenosis): Normal (See diagnostic report for details) Diagnostic Physicians Name: Hema Merino MD, PhD Closure Device Percutaneous Entry Location: Radial Closure Device: Radial Band Recommendations: Medical Therapy and/or Counseling and PCI without planned CABG PCI Indication: Unstable Angina Lesion Segment Name: Proximal and distal RCA Culprit Artery: Yes Stenosis Prior to Rx (%): 80% proximal, 95% distal Chronic Total Occlusion: No Pre-Procedure NATHANAEL Flow: 2 Previously Treated Lesion: No Lesion Complexity: Non-High/Non-C Lesion Length (mm): 12 proximal, 12 distal Thrombus Present: No Bifurcation Lesion: No Guidewire Across Lesion: Yes Cardiac Cath Procedure Full Procedure Date December 31, 2024 Pre-Procedure Diagnosis Pre-Procedure Diagnosis: Angina AUC Score AUC Score: 7 Post-Procedure Diagnosis Post-Procedure Diagnosis: Severe CAD and Successful PCI Procedure(s) Performed Procedure(s) Performed: Drug Eluting Stent Principal Associate Hema Merino MD, PhD Sponge Buffer(s) Hawa Jackson RTR Estimated Blood Loss Estimated Blood Loss: 5cc Medication(s) Medication(s): Fentanyl, Heparin, Lidocaine 1%, Nicardipine, Nitroglycerin and Versed Summary of Findings Brief description: Patient was already shaved and prepped for the diagnostic case performed by Dr. Crisostomo. He had a 6 Filipino radial artery glide sheath in place. I was asked to perform PCI of the patient's RCA lesions. Additional sedation was provided with IV fentanyl and Versed. ACT was checked and additional heparin was provided to maintain therapeutic anticoagulation. This was repeated intermittently throughout the case. A 6 Filipino JR4 guide catheter was used to engage the right coronary. A BMW universal guidewire was advanced through the guide catheter and positioned distally beyond the lesion in the distal RCA. Distal lesion was predilated with a 2.0 x 12 mm trek balloon at 8 mala. Proximal lesion was then also dilated with the same balloon at 14 mala. A 2.5 x 12 mm trek balloon was used to predilate the distal lesion at 8 mala x 2. The same balloon was then used to predilate the proximal lesion at 8 mala. A 2.5 x 15 mm julissa point drug-eluting stent was positioned across the distal lesion where it was initially deployed at 11 mala. A second inflation to 12 mala was performed. A 2.75 x 15 julissa point drug-eluting stent was positioned across the proximal lesion. It was deployed at 16 mala with a second inflation up to 19 mala. The proximal stent was postdilated with a 2.75 x 8 mm NC Albert at 12 and 15 mala. Finally, a 3.0 x 8 mm NC Albert was placed within the proximal stent and inflation done up to 19 mala. After removal of the guidewire and balloon final angiographic evaluation was performed. The guide catheter was then removed. ACT was checked and heparin provided as needed. Patient received oral Brilinta. The radial artery sheath was removed and hemostasis was obtained using the TR band. Patient was hemodynamically stable and asymptomatic. He was returned to the recovery area. This ended the case. PCI findings-0% residual stenosis at the distal RCA and proximal RCA lesions. NATHANAEL-3 flow post PCI No evidence of dissection or perforation post PCI Summary: 1. Successful PCI with implantation of 2 drug-eluting stents in the distal and proximal RCA. 2. Dual antiplatelet therapy with aspirin and Brilinta for 1 to 2 years 3. 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 (Start 904, end 100) Procedural Complication(s) None Disposition Mailroom Coordinator Holding/Recovery I attest to the content of the Intraoperative Record and any orders documented therein. Any exceptions are noted below. [facility] Card Cath Procedure Codes Moderate Sedation Procedure 2: Sedation/Anesthesia: 27381 Mod Sedation by a different physician;Ea Additional 15 Minutes (Additional 45 min, second facing baster, end 1005) Procedure 1: Sedation/Anesthesia: 98578 Mod Sedation by a different physician ;Init15 Min Child Age 5&Up (Initial 15 minutes, second facing baster. Start 0905) Stenting Procedure 1: Cardiovascular Stent Procedures: [address] [facility] transcatheter placement of intracoronary stent(s), with ang (RCA) PG Care Time/CCT Total # of Minutes Spent Total Time Spent with Patient: Total time spent is greater than 50% in coordination of care (as documented) at patient's floor/unit and/or counseling patient:
== END 2024-12-31 15:01 | disposition home or self-care (01) ==
LOC: 2S 06:42 → CC 06:42